=== PATIENT | male | born 1965 | race Caucasian/White ===

== ENCOUNTER 2019-10-12 17:33 | Observation (INO) | payer MEDICAID, SELFPAY ==
[2019-10-13 00:01] VITALS: BP 91/58; PULSE 74; RESP 26; TEMP 36.6; O2SAT 92
[2019-10-13 05:39] VITALS: BP 103/72; PULSE 71; RESP 20; TEMP 36.5; O2SAT 99
[2019-10-13] MEDS: sodium chloride 0.9 % (flush) syringe 10 mL 2 ML IV (05:40)
[2019-10-13 06:15] LABS: Hemoglobin 13.9 g/dL (11.7-16.6); Mean Corpuscular HGB Conc 33.1 g/dL (30.0-36.0); Mean Corpuscular Volume 96.6 fL (80-94); Mean Platelet Volume 9.8 fL (7.4-10.4); Platelet Count 302 10^3/cmm (130-400); Red Blood Count 4.35 10^6/uL (4.1-5.3); Red Cell Distribution Width 12.9 % (12.1-15.1); White Blood Count 6.7 10^3/uL (4.0-10.0)
[2019-10-13 06:31] LABS: Alanine Aminotransferase 33 U/L (0-41); Albumin Level 5.5 g/dL (3.5-5.2); Alkaline Phosphatase 115 IU/L (40-130); Anion Gap 15.2 (5-19); Aspartate Amino Transferase 27 U/L (0-40); Blood Urea Nitrogen 8 mg/dL (6-20); Calcium 10.2 mg/Dl (8.6-10.0); Carbon Dioxide 27 mmol/L (22-29); Chloride 92 mmol/L (98-107); Globulin 2.2 g/dL (1.3-4.6); Glomerular Filtration Rate 118.4 mL/min (90-130); Glucose 99 mg/dL (74-109); Potassium 4.2 mmol/L (3.5-5.1); Sodium 130 mmol/L (136-145); Total Bilirubin 0.3 mg/dL (0.15-1.2); Total Protein 7.7 g/dL (6.6-8.7)
[2019-10-13 08:00] VITALS: BP 101/70; PULSE 71; RESP 20; TEMP 36.8; O2SAT 97
[2019-10-13 08:37] LABS: Absolute Eosinophils 0.1 10^3/cmm (0.0-0.7); Absolute Segmented Neutrophil 3.2 10/cmm (1.6-7.1); Band Neutrophils Absolute 0.4 10^3/cmm (0.0-1.2); Eosinophils 2 %; Lymphocytes 38 %; Lymphocytes Absolute 2.6 10^3/cmm (1.2-3.4); Monocytes Absolute 0.3 10^3/cmm (0.1-0.6); Platelet Estimate Normal (Normal); Segmented Neutrophils 48 %; Total Cells Counted 100 (0-100)
[2019-10-13] MEDS: carBAMazepine XR (12 HR) 200 mg Tablet 400 MG PO (09:35)
[2019-10-13] MEDS: levETIRAcetam 500 mg Tablet 1500 MG PO (09:35)
[2019-10-13] MEDS: aspirin 81 mg EC Tablet PO (09:35)
[2019-10-13] MEDS: nicotine 21 mg Patch 1 PATCH TRANSDERMA (09:35)
[2019-10-13 10:50] VITALS: BP 109/79; PULSE 83; RESP 20; TEMP 35.8; O2SAT 95
[2019-10-13 11:34] VITALS: PULSE 75; RESP 18; O2SAT 97
--- NOTE | 2019-10-13 12:40 | P.DS_ITS ---
Discharge Providers Date of Admission: 10/12/19 17:33 Date of Discharge: 10/13/19 Attending Provider at Admission: Silver Hughes Attending Provider at Discharge: Silver Hughes Primary Care Provider: Michael Mackey Diagnoses at Discharge Discharge Diagnosis (1) Seizure disorder: Status: Acute (2) Smoking addiction: Status: Acute (3) Vitamin D deficiency: Status: Acute Reason for Visit Reason for Visit: Reason For Visit: Generalized Weakness Hospital Course Hospital Course: 54-year-old gentleman with history of seizure disorder, possible anxiety disorder which he reports as nerves , was placed in observation after 2 episodes of seizure on 10/12, 1 around noon, and other in the ER. Episodes resolve spontaneously. He denies any particular trigger. He denies missing his medications. No obvious metabolic or infectious cause was identified. His carbamazepine level was found therapeutic. Keppra level is pending. He was continued on home dose of carbamazepine 400 mg twice daily. He was loaded with 1000 mg of Keppra IV in ER, and continued on 1500 mg twice daily thereon. He did well overnight, without recurrence of seizure. He is feeling ready to return home. For now he will continue on 1500 mg twice daily Keppra, and is referred for follow-up with neurology in office for any additional dose adjustments. He was counseled on smoking cessation, however, does not feel ready to quit at this time. Due to mild hypercalcemia, calcium 10.5, with normal PTH level vitamin D was checked, and is low. Perhaps is the cause of his mildly elevated calcium. For now we will order some replacement for him. Please follow-up calcium levels as outpatient. Physical Exam Const: COMMON NORMALS: no apparent distress and oriented x3 HENMT: COMMON NORMALS: oropharynx normal Neck/C-Spine: COMMON NORMALS: no JVD Resp: COMMON NORMALS: normal respiratory effort and clear to auscultation bilaterally AUSCULTATION: clear to auscultation bilaterally Cardio: COMMON NORMALS: no JVD, regular rhythm, S1 normal heart sound, S2 normal heart sound and no murmurs RHYTHM: regular rhythm HEART SOUNDS: S1 normal and S2 normal GI: COMMON NORMALS: normal to inspection, nondistended, normoactive bowel sounds, soft to palpation and non-tender PALPATION: Yes soft Extremity: COMMON NORMALS: no joint enlargement and no pedal edema Neuro: COMMON NORMALS: oriented x3, moves all extremities and no sensory deficits noted Skin: COMMON NORMALS: no rashes or lesions noted GENERAL SKIN EXAM: no dontrell hes or lesions noted Discharge Data Data Completed and Pending: Labs from last 24 hours 10/13/19 10/13/19 10/12/19 05:45 05:45 19:12 WBC 6.7 RBC 4.35 Hgb 13.9 Hct 42.0 MCV 96.6 H MCH 32.0 MCHC 33.1 RDW 12.9 Plt Count 302 MPV 9.8 Neut % (Auto) Lymph % (Auto) [place] % (Auto) Eos % (Auto) Baso % (Auto) Neut # (Auto) Lymph # (Auto) [place] # (Auto) Eos # (Auto) Baso # (Auto) Nucleated RBC % (a uto) Total Counted 100 Atypical Lymphs % 1.0 Segmented Neutroph ils 48 Band Neutrophils 6.0 Absolute Lymphocyt es 2.6 Lymphocytes (Manua l) 38 Monocytes (Manual) 5.0 Absolute Monocytes 0.3 Eosinophils (Manua l) 2 Absolute Eosinophi ls 0.1 Nucleated RBCs # Platelet Estimate Normal Sodium 130 L Potassium 4.2 Chloride 92 L Carbon Dioxide 27 Anion Gap 15.2 BUN 8 Creatinine 0.7 GFR Calculation 118.4 Glucose 99 Random Glucose Calcium 10.2 H Ionized Calcium 1.2 Total Bilirubin 0.3 AST 27 ALT 33 Alkaline Phosphata se 115 Creatine Kinase Total Protein 7.7 Albumin 5.5 H Globulin 2.2 PTH Intact Urine Opiates Scre en Ur Barbiturates Sc reen Carbamazepine Ur Phencyclidine S crn Ur Amphetamines Sc reen U Benzodiazepines Scrn Urine Cocaine Scre en U Marijuana (THC) Screen Ethyl Alcohol 10/12/19 10/12/19 10/12/19 19:12 15:32 15:10 WBC RBC Hgb Hct MCV MCH MCHC RDW Plt Count MPV Neut % (Auto) Lymph % (Auto) Blackford % (Auto) Eos % (Auto) Baso % (Auto) Neut # (Auto) Lymph # (Auto) [place] # (Auto) Eos # (Auto) Baso # (Auto) Nucleated RBC % (a uto) Total Counted Atypical Lymphs % Segmented Neutroph ils Band Neutrophils Absolute Lymphocyt es Lymphocytes (Manua l) Monocytes (Manual) Absolute Monocytes Eosinophils (Manua l) Absolute Eosinophi ls Nucleated RBCs # Platelet Estimate Sodium Potassium Chloride Carbon Dioxide Anion Gap BUN Creatinine GFR Calculation Glucose Random Glucose Calcium 10.1 H Ionized Calcium Total Bilirubin AST ALT Alkaline Phosphata se Creatine Kinase Total Protein Albumin Globulin PTH Intact 27.9 Urine Opiates Scre en NEGATIVE Ur Barbiturates Sc reen NEGATIVE Carbamazepine Ur Phencyclidine S crn NEGATIVE Ur Amphetamines Sc reen NEGATIVE U Benzodiazepines Scrn NEGATIVE Urine Cocaine Scre en NEGATIVE U Marijuana (THC) Screen NEGATIVE Ethyl Alcohol < 10 10/12/19 10/12/19 10/12/19 15:10 15:10 15:10 WBC 10.9 H RBC 4.30 Hgb 13.5 Hct 40.1 L MCV 93.3 MCH 31.4 MCHC 33.7 RDW 12.7 Plt Count 307 MPV 9.7 Neut % (Auto) 76.6 Lymph % (Auto) 15.7 Blackford % (Auto) 6.9 Eos % (Auto) 0.2 Baso % (Auto) 0.3 Neut # (Auto) 8.4 H Lymph # (Auto) 1.7 [place]ford # (Auto) 0.8 Eos # (Auto) 0.0 Baso # (Auto) 0.0 Nucleated RBC % (a uto) 0 Total Counted Atypical Lymphs % Segmented Neutroph ils Band Neutrophils Absolute Lymphocyt es Lymphocytes (Manua l) Monocytes (Manual) Absolute Monocytes Eosinophils (Manua l) Absolute Eosinophi ls Nucleated RBCs # 0.0 Platelet Estimate Sodium 134 L Potassium 4.2 Chloride 96 L Carbon Dioxide 23 Anion Gap 19.2 H BUN 13 Creatinine 0.9 GFR Calculation 88.6 L Glucose Random Glucose 108 Calcium 10.4 H Ionized Calcium Total Bilirubin 0.2 AST 26 ALT 33 Alkaline Phosphata se 114 Creatine Kinase 136 Total Protein 8.3 Albumin 4.9 Globulin 3.4 PTH Intact Urine Opiates Scre en Ur Barbiturates Sc reen Carbamazepine 8.6 Ur Phencyclidine S crn Ur Amphetamines Sc reen U Benzodiazepines Scrn Urine Cocaine Scre en U Marijuana (THC) Screen Ethyl Alcohol Vitals: , And he is continued onLast Vital Signs Temp 96.5 F L 10/13/19 10:50 Pulse 75 10/13/19 11:34 Resp 18 10/13/19 11:34 BP 109/79 10/13/19 10:50 Pulse Ox 97 10/13/19 11:34 Discharge Plan Discharge Patient Disposition: Home, Self-Care Condition: Stable Prescriptions: New levetiracetam 500 mg Tablet 1,500 mg PO BID Qty: 180 RF: 0 albuterol sulfate 90 mcg/actuation HFA aerosol inhaler 1 inh INHALATION Q6H PRN (Reason: shortness of breath or wheezing) Qty: 6.7 RF: 0 cholecalciferol (vitamin D3) 4,000 unit capsule 4,000 unit PO DAILY Qty: 30 RF: 0 Continued olanzapine 5 mg Tablet 5 mg PO QPM RF: 0 aspirin 81 mg Tablet,Delayed Release (Dr/Ec) 81 mg PO DAILY RF: 0 lorazepam 0.5 mg Tablet 0.5 mg PO QID PRN (Reason: Anxiety) RF: 0 carbamazepine (mood stabiliz) 200 mg Capsule, Er Multiphase 12 Hr 400 mg PO BID RF: 0 Discontinued levetiracetam 500 mg Tablet 500 mg PO BID RF: 0 Discharge Orders: Discharge Order (Routine); Ordered 10/13/19 Ordered By: Silver Hughes Referrals: aKdy Gilman MD [Physician] - 1 week (PLEASE CALL [facility] TOMORROW TO SET UP A FOLLOW UP APPOINTMENT FOR SEIZURES.) Michael Mackey FNP [Primary Care Provider] - 4-7 days (PLEASE CALL [facility] TOMORROW TO SET UP A FOLLOW UP APPOINTMENT.) Activity Restrictions/Additional Instructions: If experiencing recurrence of seizures, please seek medical attention. Please make an effort to try to stop smoking or at least reduce the amount to smoke. Discharge Attestations Time Spent in Discharge Care*: greater than 30 min Quality Metrics Clinical Quality Measures During this hospital stay, did patient experience: None Coding Level of Care Code Acute Financial Services Professional for Chg Fwd Diagnoses Seizure disorder G40.909 Smoking addiction F17.200 Vitamin D deficiency E55.9
[2019-10-13 12:59] VITALS: PULSE 75; RESP 18; TEMP 35.8; O2SAT 97
--- NOTE | 2019-10-13 13:39 | PC.CHAP ---
Pastoral Care Encounter/Spiritual Assessment Type of Contact [] Declined grant officer visit [] Patient/Family/Request visit [] Outpatient visit [] Follow-up visit [] Physician referral [] Code/Alert [x Routine visit [] Staff referral [] Actively dying [] Patient sleeping [] Family support [] [] Out of room [] Palliative care [] [] Receiving care in room [] Pre-surgical visit [] Trauma [] Long length of stay [] ICU visit [] Other: Relational/Emotional Strength [x] Patient feels connected with others/family/visitors/staff [] Distress [] Loneliness/isolation [] Abandonment Spirituality of Patient [x] Person of Edel [] Attends Jew of their Edel [] Believes in Prayer [] Reads Bible or Bahai materials [] There are Spiritual issues to be addressed Outer Diameter Grinder Interventions [x] Prayer [x] Active listening [x] Non-anxious presence [x] Spiritual/emotional support [] Crisis/trauma care [] Spiritual counseling [] Bereavement support [] Provided bereavement packet [] Provided Bible/devotional materials [] Provided toy/stuffed animal, coloring book to patient or family member [x] Completed spiritual assessment [] Provided Communion [] Anointing/Stacy [] Salvation [] Other: Impact on Illness or Injury [] Angry [] Fearful [] Anxious [] Often cries [] Exhaustion [x] Unable to work [] Unable to attend congregational [] Unable to walk/stand [] Unable to read [] Unable to drive [] Unable to eat/drink [] Unable to sleep [] Unable to be with family [] Other: Summary enjoyed life likes to help others Time spent with patient 10 min
== END 2019-10-13 14:39 | disposition home or self-care (01) ==
LOC: ER 17:58 → MEDSURG 18:21
PROVIDERS: Admitting Provider Internal Medicine; Family Provider Nurse Practitioner Family; PCP Nurse Practitioner Family; Visit Provider Internal Medicine
DX: G40.909 Epilepsy, unspecified, not intractable, without status epilepticus (principal); E55.9 Vitamin D deficiency, unspecified; F17.210 Nicotine dependence, cigarettes, uncomplicated; E87.1 Hypo-osmolality and hyponatremia; D72.829 Elevated white blood cell count, unspecified; R06.2 Wheezing; Z79.82 Long term (current) use of aspirin; Z82.49 Family history of ischemic heart disease and other diseases of the circulatory system
CPT/HCPCS: 36415; 70450; 71045; 80048; 80053; 80156; 80177; 80307; 82306; 82330; 82550; 85025; 96361; 96365; 96375; 99281; 99285; G0378; J1953; J2060

== ENCOUNTER 2019-10-19 21:36 | Emergency (ER) | payer MEDICAID, SELFPAY ==
[2019-10-19 21:36] VITALS: BP 147/79; PULSE 111; RESP 18; TEMP 36.9; O2SAT 98; BMI 23.0
--- NOTE | 2019-10-19 21:47 | ED_ITS ---
Entered by Selena Melgar, acting as scribe for Oct 19, 2019 21:36 HPI - Seizure General: Chief Complaint: Seizure Stated Complaint: SEIZURES Time Seen by Provider: 10/19/19 21:46 Source: patient and EMS Mode of arrival: EMS Limitations: no limitations History of Present Illness: HPI Narrative: 54 yo male presents with multiple seizures. per EMS the pt had a seizure at home and called family, then when his sister came he had another seizure. per ems the pt had three seizures today. pt has a hx of seizures and he sees Dr. Gilman and she has him on Kepra medications. pt was unable to take his seizure medications today. pt denies any other symptoms at this time. MD complaint: possible seizure Onset (ago): day(s) (today) Witnessed: Yes - by EMS Trauma: No Seizure History: Yes Place: Home Possible Precipitating Event: none Associated symptoms: Reports no associated symptoms; Deny chest pain, chills or fever(s) Treatments prior to arrival: other (Kepra) Review of Systems General: Reports: 10 or more systems reviewed and unremarkable except in HPI and below Const: Denies: fever or chills Eyes: Denies: change in vision ENMT: Denies: throat pain or mouth pain Card: Denies: chest pain Resp: Denies: shortness of breath GI: Denies: abdominal pain, nausea, vomiting or diarrhea Musc: Denies: back pain or joint pain Skin/Breast: Denies: rash Neuro: Denies: headache or behavioral changes Psych: Denies: depression Endo: Denies: excessive urination Richie/Lymph: Denies: easy bruising All/Imm: Denies: hives PFSH ED PFSH: Statuses (acute, chronic, etc) shown below reflect problem list status as previously entered and may not be historically accurate Medical History Complex partial epilepsy with generalization (Acute) Seizure disorder (Inactive) Family History Other Heart disease Social History Smoking and tobacco status: current every day smoker Alcohol intake: never Physical Exam Const: COMMON NORMALS: no apparent distress and healthy appearing HENMT: COMMON NORMALS: normocephalic and external nose normal HEAD & SCALP: normocephalic NOSE: external nose normal and no nasal discharge (nasal dischage) Eye: COMMON NORMALS: PERRL PUPIL: Yes PERRL Neck/C-Spine: COMMON NORMALS: full ROM and no lymphadenopathy Chest: COMMONS NORMALS: inspection of chest normal Resp: COMMON NORMALS: normal respiratory effort and clear to auscultation bilaterally AUSCULTATION: clear to auscultation bilaterally Cardio: COMMON NORMALS: regular rate and regular rhythm RATE: regular rate RHYTHM: regular rhythm GI: COMMON NORMALS: soft to palpation PALPATION: Yes soft Extremity: COMMON NORMALS: normal to inspection, full ROM and normal capillary refill Psych: COMMON NORMALS: mental status grossly normal and cooperative Skin: COMMON NORMALS: no rashes or lesions noted GENERAL SKIN EXAM: no rashes or lesions noted Course Vital Signs: Vital signs: Vital Signs Temperature 98.5 F 10/19/19 21:36 Pulse Rate 109 H 10/19/19 23:02 Respiratory Rate 17 10/19/19 23:02 Blood Pressure 127/81 10/19/19 23:02 Pulse Oximetry 92 10/19/19 23:02 MDM - Seizure MDM Narrative: Medical decision making narrative: Patient presents here with seizure and has a long history of seizures. Patient is well-appearing here and given Ativan. He did not hit his head and is well-appearing here. Patient is stable for discharge and is to follow-up with his primary care doctor in 3 to 5 days return if worsening. Discharge Plan Discharge Patient Disposition: Home, Self-Care Clinical Impression: Generalized seizure Condition: Stable Prescriptions: No Action olanzapine 5 mg Tablet 5 mg PO QPM RF: 0 aspirin 81 mg Tablet,Delayed Release (Dr/Ec) 81 mg PO DAILY RF: 0 lorazepam 0.5 mg Tablet 0.5 mg PO QID PRN (Reason: Anxiety) RF: 0 carbamazepine (mood stabiliz) 200 mg Capsule, Er Multiphase 12 Hr 400 mg PO BID RF: 0 levetiracetam 500 mg Tablet 1,500 mg PO BID Qty: 180 RF: 0 albuterol sulfate 90 mcg/actuation HFA aerosol inhaler 1 inh INHALATION Q6H PRN (Reason: shortness of breath or wheezing) Qty: 6.7 RF: 0 cholecalciferol (vitamin D3) 4,000 unit capsule 4,000 unit PO DAILY Qty: 30 RF: 0 Discharge Orders: Discharge Order (Routine); Ordered 10/19/19 Ordered By: Anna Avila Referrals: Michael Mackey, FRONT DESK ADMIN [Primary Care Provider] - 4-7 days Discharge Diet: Advance as tolerated Discharge Activity: Resume usual activity Patient Instructions: Recurrent Seizures Adult (ED) Discharge Date/Time: 10/19/19 23:04 Coding Level of Care Code ED Director Home Health for Chg Fwd Exam Problem Focused The documentation recorded by the Ramón nolan Bridget Annette, accurately reflects the service I personally performed and the decisions made by Austin maurice Korby, MD Oct 19, 2019 21:36
--- NOTE | 2019-10-19 21:56 | PC.NURSE ---
pt was given 5mg versed intranasal by [facility]
[2019-10-19] MEDS: LORazepam 2 mg/mL INJ 1 mL IM (22:20)
[2019-10-19 23:02] VITALS: BP 127/81; PULSE 109; RESP 17; O2SAT 92
== END 2019-10-19 23:04 | disposition home or self-care (01) ==
PROVIDERS: Emergency Provider Emergency Medicine; Family Provider Nurse Practitioner Family; PCP Nurse Practitioner Family
DX: G40.409 Other generalized epilepsy and epileptic syndromes, not intractable, without status epilepticus (principal); Z79.82 Long term (current) use of aspirin; F17.210 Nicotine dependence, cigarettes, uncomplicated
CPT/HCPCS: 96372; 99282; J2060

== ENCOUNTER → 2019-10-27 14:57 | Outpatient (BNVA) | payer MEDICAID, SELFPAY | PROVIDERS: Family Provider Nurse Practitioner Family; PCP Nurse Practitioner Family; Visit Provider Specialist | DX: G40.209 Localization-related (focal) (partial) symptomatic epilepsy and epileptic syndromes with complex partial seizures, not intractable, without status epilepticus (principal); F17.210 Nicotine dependence, cigarettes, uncomplicated | CPT/HCPCS: 99214 ==

== ENCOUNTER → 2020-04-19 11:55 | Outpatient (BNVA) | payer MEDICAID, SELFPAY | PROVIDERS: Family Provider Nurse Practitioner Family; PCP Nurse Practitioner Family; Visit Provider Specialist | DX: G40.209 Localization-related (focal) (partial) symptomatic epilepsy and epileptic syndromes with complex partial seizures, not intractable, without status epilepticus (principal); F17.200 Nicotine dependence, unspecified, uncomplicated | CPT/HCPCS: 99213 ==

== ENCOUNTER 2020-08-24 20:56 | Inpatient (IN) | payer MEDICAID, SELFPAY ==
[2020-08-24] VITALS (11 sets, daily range): BP systolic 93–141; BP diastolic 63–111; PULSE 89–107; RESP 13–24; TEMP 36.7–36.8; O2SAT 93–99; BMI 24.0
--- NOTE | 2020-08-24 20:57 | CTR_ITS ---
PROCEDURE INFORMATION: Exam: CT Head Without Contrast Exam date and time: 08/24/2020 10:33 PM Age: 54 years old Clinical indication: Altered mental status/memory loss and other: Combative; Additional info: AMS TECHNIQUE: Imaging protocol: Computed tomography of the head without contrast. Radiation optimization: All CT scans at this facility use at least one of these dose optimization techniques: automated exposure control; mA and/or kV adjustment per patient size (includes targeted exams where dose is matched to clinical indication); or iterative reconstruction. COMPARISON: CT head wo con* [id number] 10/12/2019 4:23 PM RADIATION DOSE METRICS: Total DLP (mGy-cm): 725.29 FINDINGS: Brain: No acute intracranial hemorrhage or mass effect. No definite acute infarct by CT. MRI could be more sensitive/specific for detection, as clinically directed. Cerebral ventricles: Ventricle size is normal for age. Bones/joints: No definite acute skull fracture. Paranasal sinuses: Included paranasal sinuses are essentially clear. Mastoid air cells: No significant acute finding. CT/CT head wo con* [id number] IMPRESSION: 1. No acute intracranial hemorrhage or mass effect. 2. No definite acute infarct by CT, see above. 3. Other findings discussed above. Radiation Dose CTDIVOL = (mGy): DLP = 725.29 (mGy-cm)
--- NOTE | 2020-08-24 20:57 | XR_ITS ---
WS: [id number] Portable AP upright chest, 08/24/2020 Clinical Data: ams Comparison: Portable chest, 10/12/2019. Findings: Bilateral interstitial prominence again is seen. This can represent interstitial edema or d iffuse pneumonia. The heart is normal. The aortic arch is tortuous. No nodules, masses or effusions a re seen. Monitor leads are on the chest wall. XR/XR chest 1V portable [id number] Impression: Diffuse pulmonary interstitial prominence which could represent interstitial ed jaimie, diffuse pneumonia or chronic fibrosis.
--- NOTE | 2020-08-24 21:02 | PC.NURSE ---
ekg done at 2100 and shown to er doc
--- NOTE | 2020-08-24 21:05 | ED_ITS ---
HPI - Altered Mental Status General: Chief Complaint: Altered Mental Status Stated Complaint: combative ams Time Seen by Provider: 08/24/20 20:57 Source: EMS Mode of arrival: EMS Limitations: altered mental status History of Present Illness: HPI narrative: 54-year-old male has history of seizures family called EMS as he was been having hallucinations. EMS states once once they arrived he was talking about Rene Rivera and living in different houses and was quite all over the place. When I told him that he is him to go he became combative. He is not combative the hallway with them. They have given him ketamine in route and history is not fully available from them. He has had no known illness per EMS. Patient still is fighting somewhat and will have to give more sedation we will answer any my questions. Review of Systems General: Reports: ROS unobtainable due to mental status [facility] ED PFSH: Medical History (Updated 08/24/20 @ 22:51 by Anna Avila MD) Complex partial epilepsy with generalization Seizure disorder Family History Other Heart disease Social History Smoking and tobacco status: current every day smoker cigarettes Packs smoked per day: 1 Alcohol intake: never Physical Exam Const: COMMON NORMALS: negative for patient oriented x3 EXAM LIMITATIONS: altered mental status GENERAL APPEARANCE: disheveled HENMT: COMMON NORMALS: normocephalic and atraumatic HEAD & SCALP: no rmocephalic and atraumatic Eye: COMMON NORMALS: Equal, round and reactive pupils present and EOMs intact bilaterally PUPIL: Yes Equal, round and reactive pupils present Neck/C-Spine: COMMON NORMALS: full ROM and supple Chest: COMMONS NORMALS: normal inspection of the chest and normal palpation of entire chest wall Resp: COMMON NORMALS: normal respiratory effort, No retractions, No use of accessory muscles and clear to auscultation bilaterally AUSCULTATION: clear to auscultation bilaterally Cardio: COMMON NORMALS: regular rate, regular rhythm and No murmurs present (Cardio) RATE: regular rate RHYTHM: regular rhythm GI: COMMON NORMALS: Normal to inspection, nondistended, normoactive bowel sounds present, Soft to palpation, non-tender and no masses PALPATION: Yes Soft to palpation Extremity: COMMON NORMALS: normal to inspection Neuro: COMMON NORMALS: negative for patient oriented x3 Psych: COMMON NORMALS: negative for mental status grossly normal Skin: COMMON NORMALS: no rashes or lesions noted and no wounds GENERAL SKIN EXAM: no rashes or lesions noted Course Vital Signs: Vital signs: Vital Signs Temperature 98.3 F 08/24/20 22:45 Pulse Rate 90 08/24/20 22:45 Respiratory Rate 24 H 08/24/20 22:45 Blood Pressure 128/74 08/24/20 22:45 Pulse Oximetry 99 08/24/20 22:45 MDM - Altered Mental Status MDM Narrative: Medical decision making narrative: Tramaine presents here with acute agitation. I did speak to his family and states only got to him he was seen he was given a shoot to the deputies and shoot his family. He states he is act like this before after he comes out of a seizure. He has had no headache or fever. Father states he checked on him yesterday and said he had some diarrhea but had no other acute findings. He has no signs of meningitis. Unable to get any history from patient as he was sedated. CT head here is normal. I spoke to the hospitalist will admit to the ICU. Lab Data: Labs: Lab Results 08/24/20 08/24/20 08/24/20 Range/Units 21:10 21:10 21:10 WBC 13.6 H (4.0-10.0) 10^3/ uL RBC 4.33 (4.1-5.3) 10^6/u L Hgb 13.9 (11.7-16.6) g/dL Hct 41.0 L (42.0-52.0) % MCV 94.7 H (80-94) fL MCH 32.1 (28.0-34.0) pg MCHC 33.9 (30.0-36.0) g/dL RDW 12.9 (12.1-15.1) % Plt Count 341 (130-400) 10^3/c mm MPV 10.0 (7.4-10.4) fL Neut % (Auto) 78.9 % Lymph % (Auto) 9.9 % Montague % (Auto) 10.7 % Eos % (Auto) 0.0 % Baso % (Auto) 0.1 % Neut # (Auto) 10.69 H (1.8-7.7) 10^3/u L Lymph # (Auto) 1.3 (0.8-4.8) 10^3/u L Montague # (Auto) 1.5 H (0.2-0.9) 10^3/u L Eos # (Auto) 0.0 (0.0-0.8) 10^3/u L Baso # (Auto) 0.0 (0.0-0.1) 10^3/u L Nucleated RBC % (a uto) 0 % Nucleated RBCs # 0.0 /100WBC PT 14.20 (12.1-14.9) SECO NDS INR 1.06 (0.8-1.2) Sodium 132 L (136-145) mmol/L Potassium 5.0 (3.5-5.1) mmol/L Chloride 90 L (98-107) mmol/L Carbon Dioxide 28 (22-29) mmol/L Anion Gap 19.0 (5-19) BUN 50 H (6-20) mg/dL Creatinine 1.5 H (0.7-1.2) mg/dL GFR Calculation 49.1 L (90-130) mL/min Glucose 105 (65-115) mg/dL Calculated Osmolal ity 288 (285-295) mOsm/k g Lactate (0.5-2.2) mmol/L Calcium 9.9 (8.5-10.5) mg/dL Total Bilirubin 0.6 (0.15-1.2) mg/dL AST 167 H (0-40) U/L ALT 105 H (0-41) U/L Alkaline Phosphata se 96 (40-130) IU/L Total Protein 7.9 (6.6-8.7) g/dL Albumin 4.6 (3.5-5.2) g/dL Globulin 3.3 (1.3-4.6) g/dL TSH 1.29 (0.27-4.20) uIU/ mL Urine Color (Yellow) Urine Appearance (CLEAR) Urine pH (5-7) Ur Specific Gravit y (1.005-1.030) Urine Protein (Negative) Urine Glucose (UA) (Normal) Urine Ketones (Negative) Urine Blood (Negative) Urine Nitrate (Negative) Urine Bilirubin (Negative) Urine Urobilinogen (Negative) mg/dL Ur Leukocyte Tisha ase (Negative) Urine RBC (0-2) /hpf Urine WBC (0-5) /hpf Ur Squamous Epith Cells (0-5) /hpf Amorphous Sediment /hpf Urine Bacteria (NONE) /hpf Salicylates < 0.3 L (3-10) mg/dL Urine Opiates Scre en (Negative) ng/mL Acetaminophen < 5.0 L (10-30) ug/mL Ur Barbiturates Sc reen (Negative) ng/mL Ur Phencyclidine S crn (Negative) ng/mL Ur Amphetamines Sc reen (Negative) ng/mL U Benzodiazepines Scrn (Negative) ng/mL Urine Cocaine Scre en (Negative) ng/mL U Marijuana (THC) Screen (Negative) ng/mL Ethyl Alcohol < 10 (0-10) mg/dL 08/24/20 08/24/20 08/24/20 Range/Units 21:10 21:10 21:10 WBC (4.0-10.0) 10^3/ uL RBC (4.1-5.3) 10^6/u L Hgb (11.7-16.6) g/dL Hct (42.0-52.0) % MCV (80-94) fL MCH (28.0-34.0) pg MCHC (30.0-36.0) g/dL RDW (12.1-15.1) % Plt Count (130-400) 10^3/c mm MPV (7.4-10.4) fL Neut % (Auto) % Lymph % (Auto) % Montague % (Auto) % Eos % (Auto) % Baso % (Auto) % Neut # (Auto) (1.8-7.7) 10^3/u L Lymph # (Auto) (0.8-4.8) 10^3/u L Montague # (Auto) (0.2-0.9) 10^3/u L Eos # (Auto) (0.0-0.8) 10^3/u L Baso # (Auto) (0.0-0.1) 10^3/u L Nucleated RBC % (a uto) % Nucleated RBCs # /100WBC PT (12.1-14.9) SECO NDS INR (0.8-1.2) Sodium (136-145) mmol/L Potassium (3.5-5.1) mmol/L Chloride (98-107) mmol/L Carbon Dioxide (22-29) mmol/L Anion Gap (5-19) BUN (6-20) mg/dL Creatinine (0.7-1.2) mg/dL GFR Calculation (90-130) mL/min Glucose (65-115) mg/dL Calculated Osmolal ity (285-295) mOsm/k g Lactate 1.8 (0.5-2.2) mmol/L Calcium (8.5-10.5) mg/dL Total Bilirubin (0.15-1.2) mg/dL AST (0-40) U/L ALT (0-41) U/L Alkaline Phosphata se (40-130) IU/L Total Protein (6.6-8.7) g/dL Albumin (3.5-5.2) g/dL Globulin (1.3-4.6) g/dL TSH (0.27-4.20) uIU/ mL Urine Color Yellow (Yellow) Urine Appearance Sl cloudy A (CLEAR) Urine pH 5.0 (5-7) Ur Specific Gravit y 1.020 (1.005-1.030) Urine Protein 1+ H (Negative) Urine Glucose (UA) 1+ (Normal) Urine Ketones 1+ H (Negative) Urine Blood 3+ H (Negative) Urine Nitrate Negative (Negative) Urine Bilirubin Neg (Negative) Urine Urobilinogen Norm (Negative) mg/dL Ur Leukocyte Tisha ase Negative (Negative) Urine RBC 0-4 H (0-2) /hpf Urine WBC 0-4 H (0-5) /hpf Ur Squamous Epith Cells None (0-5) /hpf Amorphous Sediment Amorphous urates /hpf Urine Bacteria 2+ H (NONE) /hpf Salicylates (3-10) mg/dL Urine Opiates Scre en Negative (Negative) ng/mL Acetaminophen (10-30) ug/mL Ur Barbiturates Sc reen Negative (Negative) ng/mL Ur Phencyclidine S crn Negative (Negative) ng/mL Ur Amphetamines Sc reen Negative (Negative) ng/mL U Benzodiazepines Scrn Negative (Negative) ng/mL Urine Cocaine Scre en Negative (Negative) ng/mL U Marijuana (THC) Screen Negative (Negative) ng/mL Ethyl Alcohol (0-10) mg/dL EKG Data^: EKG 1: Attestation: I personally reviewed and interpreted this EKG as follows: EKG interpretation date: 08/24/20 EKG interpretation time: 21:00 Interpretation: nsr hr [address] or t wave abnormalities qrs 93 qtc 380 Discharge Plan Discharge Patient Disposition: Admitted As Inpatient Clinical Impression: Altered mental status, Acute psychosis Condition: Stable Coding Level of Care Code ED File Keeper for Chg Fwd Exam Comprehensive
[2020-08-24 21:23] LABS: Basophils % 0.1 %; Hemoglobin 13.9 g/dL (11.7-16.6); Lymphocytes # 1.3 10^3/uL (0.8-4.8); Lymphocytes % 9.9 %; Mean Corpuscular HGB Conc 33.9 g/dL (30.0-36.0); Mean Corpuscular Hemoglobin 32.1 pg (28.0-34.0); Mean Corpuscular Volume 94.7 fL (80-94); Monocytes # 1.5 10^3/uL (0.2-0.9); Monocytes % 10.7 %; Neutrophils # 10.69 10^3/uL (1.8-7.7); Neutrophils % 78.9 %; Nucleated Red Blood Cells % 0 %; Platelet Count 341 10^3/cmm (130-400); Red Blood Count 4.33 10^6/uL (4.1-5.3); Red Cell Distribution Width 12.9 % (12.1-15.1); White Blood Count 13.6 10^3/uL (4.0-10.0)
--- NOTE | 2020-08-24 21:30 | PC.NURSE ---
In restraint bed
[2020-08-24] MEDS: sodium chloride 0.9% 1,000 ML 999 ML IV (21:37)
[2020-08-24] MEDS: LORazepam 2 mg/mL INJ 1 mL 4 MG IVP (21:38)
[2020-08-24 21:48] LABS: INR 1.06 (0.8-1.2)
[2020-08-24 21:49] LABS: Amphetamines Screen Urine Negative (Negative); Barbiturates Screen Urine Negative (Negative); Benzodiazepines Screen Urine Negative (Negative); Cocaine Screen Urine Negative (Negative); Opiate Screen Urine Negative (Negative); PCP Screen Urine Negative (Negative); THC Screen Urine Negative (Negative)
[2020-08-24 21:58] LABS: Blood Urine 3+ (Negative); Glucose Urine UA 1+ (Normal); Ketones Urine 1+ (Negative); Protein Urine 1+ (Negative); Urine Color Yellow (Yellow)
[2020-08-24 21:59] LABS: Add Urine Microscopic? YES; Bacteria Urine 2+ /hpf; Bilirubin Urine Neg (Negative); Lactate (Lactic Acid level) 1.8 mmol/L (0.5-2.2); Leukocyte Esterase Urine Negative (Negative); Nitrate Urine Negative (Negative); RBC Urine 0-4 /hpf (0-2); Urobilinogen Urine Norm (Negative); WBC Urine 0-4 /hpf (0-5)
[2020-08-24 22:00] LABS: Add Urine Culture? Yes; Amorphous Sediment Urine AMORPHOUS URATES /hpf
[2020-08-24 22:09] LABS: Alanine Aminotransferase 105 U/L (0-41); Albumin Level 4.6 g/dL (3.5-5.2); Alkaline Phosphatase 96 IU/L (40-130); Aspartate Amino Transferase 167 U/L (0-40); Blood Urea Nitrogen 50 mg/dL (6-20); Calcium 9.9 mg/dL (8.5-10.5); Carbon Dioxide 28 mmol/L (22-29); Chloride 90 mmol/L (98-107); Globulin 3.3 g/dL (1.3-4.6); Glomerular Filtration Rate 49.1 mL/min (90-130); Glucose 105 mg/dL (65-115); Osmolality Calculated 288 mOsm/kg (285-295); Sodium 132 mmol/L (136-145); Thyroid Stimulating Hormone 1.29 uIU/mL (0.27-4.20); Total Bilirubin 0.6 mg/dL (0.15-1.2); Total Protein 7.9 g/dL (6.6-8.7)
--- NOTE | 2020-08-24 22:15 | PC.NURSE ---
Patient feet taken out of restraints.
[2020-08-24 22:33] LABS: Acetaminophen < 5.0 ug/mL (10-30); Alcohol Level < 10 mg/dL (0-10); Salicylate < 0.3 mg/dL (3-10)
--- NOTE | 2020-08-24 22:47 | PC.NURSE ---
Patient taken out of all restraints at 2245. Patient sleeping.
--- NOTE | 2020-08-24 23:18 | PM.HP ---
Providers/Chief Complaint Admitting Physician: Vonda Whyte MD Primary Care Provider: NANCY Cramer Chief Complaint: combative ams History of Present Illness Tramaine Remy is a 54 year old male who was sent by his brother because of psychotic behavior. I called brother to get the report, he is stating that he went to visit him today, he noticed that Tramaine's conversation was tangential, he was talking about Trump and how he wants to get out of this world and come back, he thought someone ate his pills. Brother called EMS, EMS gave 200 mg ketamine because of agitation and combative behavior. When he arrived in the ER he was given 300 mg of ketamine along with Ativan. By the time I saw him he was very drowsy and sedated. Diagnostics in the ER revealed soft blood pressure, normal hemodynamics, UA reviewed, drug screen reviewed, CARLOS, CT head unremarkable. Review of Systems General: Reports: ROS unobtainable due to medical condition Medications/Allergies Home Medications Medication Instructions Recorded Confirmed Last Taken Type olanzapine 5 mg PO QPM 10/12/19 04/19/20 Unknown History cholecalciferol (vitamin D3) 4,000 unit PO DAILY #30 cap 10/13/19 04/19/20 Unknown Rx acetaminophen 325 mg capsule 650 mg PO Q6H 10/27/19 04/19/20 Unknown History lorazepam 0.5 mg tablet 0.5 mg PO QID PRN #90 tab 04/13/20 04/19/20 Unknown Rx albuterol sulfate 90 mcg/actuation 1 inh INHALATION Q6H PRN #6.7 gm 05/29/20 Unknown Rx aerosol inhaler levetiracetam 500 mg tablet 2,000 mg PO BID #240 tab 05/30/20 Unknown Rx carbamazepine 400 mg 400 mg PO BID #60 tab 05/31/20 Unknown Rx tablet,extended release,12 hr Allergies Allergy/AdvReac Type Severity Reaction Status Date / Time bismuth subsalicylate Allergy unknown Verified 08/24/20 21:04 [From Kaopectate (bismuth subsalicy)] multivitamin [From Centrum] Allergy unknown Verified 08/24/20 21:04 cholesterol medication Allergy unknown Uncoded 08/24/20 21:04 PFSH Acute PFSH: Medical History Chronic pain syndrome Complex partial epilepsy with generalization SYDNEY (generalized anxiety disorder) Mixed hyperlipidemia Seizure disorder Surgical History Status post lung surgery bullectomy Family History Other Heart disease Social History Smoking and tobacco status: current every day smoker cigarettes Packs smoked per day: 1 Alcohol intake: never Lives independently: Yes Housing: House Vitals/I&O/Wt Last Vital Signs Temp 98.3 F 08/24/20 22:45 Pulse 89 08/24/20 23:15 Resp 15 08/24/20 23:15 BP 128/69 08/24/20 23:15 Pulse Ox 96 08/24/20 23:15 08/24/20 08/24/20 08/25/20 14:59 22:59 06:59 Intake Total 1000 / 1000 Balance 1000 / 1000 Weight last 48 hrs Weight 102.058 kg Physical Exam Narrative: EXAM NARRATIVE: Middle-age male, Unkempt appearance Sedated with ketamine and Ativan Saturating well on room air Soft blood pressure No tachypnea or tachycardia Poor hygiene Multiple lacerations all over his extremities S1, S2 sinus rhythm Abdomen nondistended Neuro exam limited, however pupils are reactive to light bilaterally, he has symmetrical pupil Lower extremity multiple lacerations no active edema gangrene or ulcer Data : 08/24/20 21:10 08/24/20 21:10 A&P Assessment and plan (1) Altered mental status: Status: Acute (2) Acute psychosis: Status: Acute (3) CARLOS (acute kidney injury): Status: Acute Additional A&P Information Acute psychotic behavior Patient currently sedated after getting 500 mg of ketamine and Ativan Currently hemodynamically stable, saturating well on room air Closely monitor in the ICU for now CT head unremarkable Drug screen reviewed, We are not sure whether he had any suicidal attempt or ideation, but there is also not sure, neuropsychiatric consult once he is awake, currently not stable for NPU I would continue CIWA protocol, continue thiamine, alcohol level undetectable Acute kidney injury Baseline creatinine seems to be normal Clinically he looks dehydrated I resuscitated with fluids for now, Full code N.p.o. until mentation improves DVT prophylaxis Heparin Attestations Medical Necessity Statement*: Anticipating stay in the hospital cross more than 2 midnights currently need ICU monitoring because of previous history of epilepsy, psychotic behavior currently sedated Time Spent in Patient Care: (>than 50% of time spent in counselling and/or direct pt care on unit). 50mins Coding Level of Care Code Acute Underwriter Mortgage Loan for Ygg Fwd Diagnoses Altered mental status R41.82 Acute psychosis F23 CARLOS (acute kidney injury) N17.9
--- NOTE | 2020-08-24 23:55 | PC.NURSE ---
See scanned in paperwork for physical restraint 15 minute patient assessment documentation.
--- NOTE | 2020-08-24 23:57 | PC.NURSE ---
1:1 sitter at bedside
[2020-08-25] VITALS (35 sets, daily range): BP systolic 91–152; BP diastolic 46–106; PULSE 69–99; RESP 12–28; TEMP 36.3–37; O2SAT 93–100
--- NOTE | 2020-08-25 00:35 | PC.NURSE ---
Tried to call report at [phone], ICU crude unit operator stated the Patient's nurse was in a room and could not take report at this time.
--- NOTE | 2020-08-25 00:42 | PC.NURSE ---
Called report to ROBERTA Decker in ICU
[2020-08-25] MEDS: dextrose 5%-sod chloride 0.45% 1,000 ML 30 ML IV (01:20)
[2020-08-25] MEDS: heparin 5,000 unit/mL INJ 1 mL 5000 UNIT SUBCUT ×2 (01:49→14:20)
--- NOTE | 2020-08-25 01:52 | ECG_ITS ---
[facility] Test Date: 2020-08-24 Pat Name: Tramaine Remy Department: Room: ICU04 Gender: Male Digital Circuit Designer: : [id number] Requested By: Anna Avila Order Number: [id number] Jose MD: Dhruv Bryant M.D. Measurements Intervals Oolitic Rate: 98 P: 65 WI: 160 QRS: 62 QRSD: 93 T: 78 QT: 324 QTc: 415 Interpretive Statements SINUS RHYTHM POSSIBLE INFERIOR MYOCARDIAL INFARCTION , OF INDETERMINATE AGE [30 ms Q WAVE IN II/aVF] Compared to ECG 06/29/2019 16:39:08 Myocardial infarct finding now present ST (T wave) deviation no longer present Electronically Signed On 08-25-2020 20:03:10 [employer]UCK [employer]AU[employer] by Dhruv Bryant M.D. [id number]
[2020-08-25 02:48] LABS: SARS Covid-2 Antigen Negative (Negative)
[2020-08-25 05:07] LABS: ABG PCO2 44.4 mmHg (35-45); ABG PH Result 7.41 (7.35-7.45); Arterial Blood Gas Hematocrit 41.4 % (42-52); Base Excess ABG 3.1 mmol/L (-2.0-2.0); Blood Gas Allen Test Pos; Blood Gas Sample Site Radial, right; Blood Gas Sample Type Arterial; HCO3 ABG 28.3 mmol/L (22-26); Oxygen Device ROOM AIR; PO2 ABG 58.6 mmHg (80.0-100.0)
[2020-08-25 05:43] LABS: Albumin Level 4.3 g/dL (3.5-5.2); Blood Urea Nitrogen 42 mg/dL (6-20); Calcium 9.5 mg/dL (8.5-10.5); Carbon Dioxide 25 mmol/L (22-29); Chloride 93 mmol/L (98-107); Globulin 3.8 g/dL (1.3-4.6); Glomerular Filtration Rate 88.6 mL/min (90-130); Glucose 89 mg/dL (65-115); Osmolality Calculated 284 mOsm/kg (285-295); Sodium 132 mmol/L (136-145); Total Bilirubin 0.7 mg/dL (0.15-1.2); Total Protein 8.1 g/dL (6.6-8.7)
[2020-08-25 06:04] LABS: Alanine Aminotransferase 107 U/L (0-41); Alkaline Phosphatase 94 IU/L (40-130); Anion Gap 19.7 (5-19); Aspartate Amino Transferase 163 U/L (0-40); Potassium 5.7 mmol/L (3.5-5.1)
[2020-08-25 08:04] LABS: Basophils % 0.1 %; Eosinophils % 0.1 %; Hematocrit 37.9 % (42.0-52.0); Hemoglobin 12.7 g/dL (11.7-16.6); Lymphocytes # 2.2 10^3/uL (0.8-4.8); Lymphocytes % 22.1 %; Mean Corpuscular HGB Conc 33.5 g/dL (30.0-36.0); Mean Corpuscular Hemoglobin 31.7 pg (28.0-34.0); Mean Corpuscular Volume 94.5 fL (80-94); Monocytes # 1.1 10^3/uL (0.2-0.9); Monocytes % 10.8 %; Neutrophils # 6.47 10^3/uL (1.8-7.7); Neutrophils % 66.6 %; Nucleated Red Blood Cells % 0 %; Platelet Count 294 10^3/cmm (130-400); Red Blood Count 4.01 10^6/uL (4.1-5.3); Red Cell Distribution Width 13.1 % (12.1-15.1); White Blood Count 9.7 10^3/uL (4.0-10.0)
--- NOTE | 2020-08-25 08:23 | PC.RESP ---
SMOKING CESSATION INFORMATION SENT TO PATIENT.
[2020-08-25 08:41] LABS: Cortisol Random 22.84 ug/mL (2.47-19.5)
[2020-08-25] MEDS: sodium polystyrene sulfonate 15 gm/60 mL Btl PO (08:59)
[2020-08-25] MEDS: LORazepam 2 mg/mL INJ 1 mL IVP ×3 (09:20→18:05)
--- NOTE | 2020-08-25 13:37 | PM.PN ---
Subjective Subjective: Interval history: And physical reviewed in detail. I visited Tramaine several times today. He is now awake, and responding but somewhat slow. Nursing relates he seems to pocket food in his mouth. She is worried he might aspirate. Medications: Reviewed: Yes Vitals/I&O/Wt Last Vital Signs Temp 97.8 F 08/25/20 11:00 Pulse 74 08/25/20 12:00 Resp 14 08/25/20 12:00 BP 101/52 08/25/20 12:00 Pulse Ox 97 08/25/20 12:00 08/24/20 08/25/20 08/25/20 22:59 06:59 14:59 Intake Total 1000 / 1000 330 / 330 Output Total 700 / 700 Balance 1000 / 1000 -370 / -370 Weight last 48 hrs Weight 95.254 kg Weight 102.058 kg Physical Exam Narrative: EXAM NARRATIVE: Exam is a white male to making good eye contact who seems to grab things in the air as if he is hallucinating. Cardiovascular regular rate and rhythm without murmur Lungs clear Abdomen is soft with positive bowel sounds Extremities no cyanosis clubbing or edema Data : 08/25/20 07:22 08/25/20 04:12 A&P Assessment and plan (1) Altered mental status: Etiology unclear. He is on multiple medications at home, 1 of which is carbamazepine. There is no level of this medication on admission. Tegretol level. CT head negative Cannot rule out overdose Status: Acute (2) Acute psychosis: He may have an underlying mental health disorder. There are notes from neurology in the past that patient has had hallucinations he describes during office visits. CT head negative Psychiatry consultation Check ammonia level Status: Acute (3) CARLOS (acute kidney injury): Resolving Status: Acute Additional A&P Information Hyperkalemia. Continue fluids. Give Kayexalate. Recheck BMP this afternoon and in the morning. Check TSH and cortisol level Possible aspiration pneumonitis. He is requiring 2 L of oxygen. Change Augmentin to Zosyn secondary to concern of poor oral intake Concern of alcoholism. Thiamine. [facility] protocol Transaminitis. Check hepatitis panel Full code N.p.o. DVT prophylaxis Heparin Rapid Covid negative Attestations Medical Necessity Statement*: Needs continued hospitalization, for evaluation of hyperkalemia, confusion, psychosis. Coding Level of Care Code Acute Soap Mixer for Chg Fwd Diagnoses Altered mental status R41.82 Acute psychosis F23 CARLOS (acute kidney injury) N17.9
[2020-08-25 14:32] LABS: Anion Gap 11.3 (5-19); Blood Urea Nitrogen 30 mg/dL (6-20); Calcium 9.3 mg/dL (8.5-10.5); Carbon Dioxide 32 mmol/L (22-29); Chloride 97 mmol/L (98-107); Glomerular Filtration Rate 118.4 mL/min (90-130); Glucose 95 mg/dL (65-115); Osmolality Calculated 288 mOsm/kg (285-295); Potassium 4.3 mmol/L (3.5-5.1); Sodium 136 mmol/L (136-145)
[2020-08-25 14:33] LABS: Ammonia 21 umol/L (16-60)
[2020-08-25 14:50] LABS: Hepatitis A Antibody IgM Non-Reactive (Nonreactive); Hepatitis B Core IgM Non-Reactive (Nonreactive); Hepatitis B Surface Antigen Non-Reactive (Nonreactive); Hepatitis C Virus Antibody Non-Reactive (Nonreactive)
[2020-08-25 15:01] LABS: Carbamazepine Tegretol 4.5 ug/mL (4.0-12.0)
[2020-08-25] MEDS: piperacillin-tazobactam 3.375 GM in sodium chloride 0.9% (plus) 50 ML IV ×2 (15:06→23:42)
[2020-08-25] MEDS: dextrose 5%-sod chloride 0.45% 1,000 ML 100 ML IV (18:10)
--- NOTE | 2020-08-25 18:55 | P.CONIM_ITS ---
Providers/Reason for Consult Consulting Physican/Specialty*: Jose Daniel Sosa M.D. psychiatry. Reason for Consult*: Altered mental status, question of medication management and diagnosis Attending Physician: Bharathi Espinoza MD Primary Care Provider: NANCY Cramer Psych Consult HPI History of Present Illness Tramaine Remy is a 54 year old male who presented to the emergency department with the following report: Chief Complaint: Altered Mental Status Stated Complaint: combative ams Time Seen by Provider: 08/24/20 20:57 Source: EMS Mode of arrival: EMS Limitations: altered mental status History of Present Illness: HPI narrative: 54-year-old male has history of seizures family called EMS as he was been having hallucinations. EMS states once once they arrived he was talking about Rene Rivera and living in different houses and was quite all over the place. When I told him that he is him to go he became combative. He is not combative the hallway with them. They have given him ketamine in route and history is not fully available from them. He has had no known illness per EMS. Patient still is fighting somewhat and will have to give more sedation we will answer any my questions. He was admitted to the ICU for definitive treatment of those issues. Today when he was seen he was an essentially nonexistent historian. He was very difficult to arouse. And once awake he pointed in all directions with limited sense about what he was pointing at. He mumbles in a non-intelligible fashion. He never answered any questions directly or had any contributory information. Psychiatric history: Reportedly a long history of mental health issues but unable to obtain. Subsidies history: No reports of significant addiction issues. Otherwise standard information for consult unable to be elicited in his current condition. Meds Current Medications: Current Medications Generic Name Dose Route Start Last Admin Trade Name Freq PRN Reason Stop Dose Admin Carbamazepine 400 mg 08/25/20 22:18 08/25/20 23:42 Carbamazepine 20 0 Mg Tablet PO 400 mg BID LUCA Administration Folic Acid 1 mg 08/25/20 09:00 08/25/20 09:09 Folic Acid 1 Mg Tablet PO Not Given DAILY LUCA Heparin Sodium (Be ef Lung) 5,000 unit 08/25/20 14:00 08/26/20 05:04 Heparin 5,000 Un it/Ml Inj 1 Ml SUBCUT 5,000 unit Q12H LUCA Administration Dextrose/Sodium Ch loride 1,000 mls @ 100 m ls/hr 08/25/20 00:47 08/25/20 18:10 Dextrose 5%-Sod Chloride 0.45% IV 100 mls/hr .Q10H LUCA Administration Piperacillin Sod/T azobactam 50 mls @ 12.5 mls /hr 08/25/20 15:00 08/25/20 23:42 Sod 3.375 gm/ So dium Chloride IV 12.5 mls/hr Q8H LUCA Administration Protocol Levetiracetam 1,50 0 mg/ Sodium 115 mls @ 440 mls /hr 08/26/20 02:15 08/26/20 05:04 Chloride IV 440 mls/hr Q12H LUCA Administration Lorazepam 2 mg 08/25/20 00:47 08/25/20 18:05 Lorazepam 2 Mg/M l Inj 1 Ml IVP 2 mg PRN PRN Administration WITHDRAWAL Protocol Multivitamins Ther apeutic 1 tab 08/25/20 09:00 08/25/20 09:09 Multivitamin The rapeutic Tablet PO Not Given DAILY LUCA Olanzapine 5 mg 08/25/20 22:18 08/25/20 23:42 Olanzapine 5 Mg Tablet PO 5 mg QPM LUCA Administration Thiamine Mononitra te 100 mg 08/25/20 09:00 08/25/20 09:10 Thiamine 100 Mg Tablet PO Not Given DAILY LUCA PFSH NPU PFSH: Medical History Chronic pain syndrome Complex partial epilepsy with generalization SYDNEY (generalized anxiety disorder) Mixed hyperlipidemia Seizure disorder Surgical History Status post lung surgery bullectomy Family History Other Heart disease Social History Smoking and tobacco status: current every day smoker cigarettes Packs smoked per day: 1 Alcohol intake: never Lives independently: Yes Housing: House Mental Status Exam MSE Comments: This is a well-nourished, well-developed white male in a hospital gown with limited grooming, mostly disheveled with no directed eye contact. No abnormal movements except for psychomotor retardation. Uncoope rative with exam in mild distress. Speech was nonexistent mostly and when present was garbled. Mood not described, affect obtunded. Thought process unable to obtain. Thought content: Patient did not respond any questions about lethality but was not aggressive towards himself or others, no response to delusional frameworks, and did not appear to be responding to internal stimuli. There were times where he appeared to the noting things in the room or possibly not there. Attention and concentration was impaired and memory was unable to be obtained but no more formally tested. He was not alert or oriented. Insight and judgment are impaired, and impulse control is impaired. Vitals/I&O/Wt Last Vital Signs Temp 98.0 F 08/25/20 20:00 Pulse 84 08/25/20 20:00 Resp 15 08/25/20 20:00 BP 112/77 08/25/20 20:00 Pulse Ox 95 08/25/20 20:00 08/25/20 14:59 Intake Total 330 / 330 Output Total 700 / 700 Balance -370 / -370 Weight last 48 hrs Weight 95.254 kg Weight 102.058 kg A&P Assessment and plan (1) Altered mental status: Status: Acute (2) Acute psychosis: Status: Acute (3) Smoking addiction: Status: Acute (4) Vitamin D deficiency: Status: Acute Additional A&P Information Tramaine presents today mostly elevated with a recent history of possible seizures, being off his medication and unclear about whether is psychiatric medications are effective or whether he needs ongoing psychiatric treatment. 1. Continue current medication. 2. Will attempt to get collateral information on a psychiatric history. 3. Patient to obtunded to get a sense of whether there is a significant psychiatric decompensation present. 4. We'll continue to follow. Attestations NPU Medical Necessity Statement*: N/A. Please refer to primary team note for medical necessity. At this point unable to assess whether inpatient psychiatric services or medication changes are needed. Coding Level of Care Code Acute Cabinetmaker Apprentice for Ygg Fwd Diagnoses Altered mental status R41.82 Acute psychosis F23 Smoking addiction F17.200 Vitamin D deficiency E55.9
--- NOTE | 2020-08-25 21:36 | PC.NURSE ---
Report called to [facility]
--- NOTE | 2020-08-25 21:36 | PC.NURSE ---
AO to self, Pulls at VS leads, yells at times stating I want out , calms and reorients easily, denies pain, regular unlabored RR RA, supine 45 degrees One on One Sitter at bedside
--- NOTE | 2020-08-25 22:00 | PC.NURSE ---
Transferred to Med Surg via bed
[2020-08-25] MEDS: carBAMazepine 200 mg Tablet 400 MG PO (23:42)
[2020-08-25] MEDS: OLANZapine 5 mg TABLET PO (23:42)
[2020-08-26] VITALS: BP 125/83; PULSE 91; RESP 20; TEMP 36.4; O2SAT 95
[2020-08-26 04:00] VITALS: BP 103/61; PULSE 70; RESP 16; O2SAT 91
[2020-08-26] MEDS: heparin 5,000 unit/mL INJ 1 mL 5000 UNIT SUBCUT ×2 (05:04→13:48)
[2020-08-26 06:02] LABS: Basophils % 0.3 %; Eosinophils # 0.1 10^3/uL (0.0-0.8); Eosinophils % 0.9 %; Hematocrit 37.8 % (42.0-52.0); Hemoglobin 12.3 g/dL (11.7-16.6); Lymphocytes # 2.6 10^3/uL (0.8-4.8); Lymphocytes % 44.4 %; Mean Corpuscular HGB Conc 32.5 g/dL (30.0-36.0); Mean Corpuscular Hemoglobin 31.7 pg (28.0-34.0); Mean Corpuscular Volume 97.4 fL (80-94); Mean Platelet Volume 11.1 fL (7.4-10.4); Monocytes # 0.8 10^3/uL (0.2-0.9); Monocytes % 13.8 %; Neutrophils # 2.38 10^3/uL (1.8-7.7); Neutrophils % 40.4 %; Nucleated Red Blood Cells % 0 %; Platelet Count 253 10^3/cmm (130-400); Red Blood Count 3.88 10^6/uL (4.1-5.3); Red Cell Distribution Width 13.2 % (12.1-15.1); White Blood Count 5.9 10^3/uL (4.0-10.0)
[2020-08-26] MEDS: piperacillin-tazobactam 3.375 GM in sodium chloride 0.9% (plus) 50 ML IV ×3 (06:29→23:08)
[2020-08-26 06:55] LABS: Alanine Aminotransferase 105 U/L (0-41); Albumin Level 3.9 g/dL (3.5-5.2); Alkaline Phosphatase 84 IU/L (40-130); Anion Gap 13.1 (5-19); Aspartate Amino Transferase 153 U/L (0-40); Blood Urea Nitrogen 17 mg/dL (6-20); Carbon Dioxide 29 mmol/L (22-29); Chloride 98 mmol/L (98-107); Globulin 2.8 g/dL (1.3-4.6); Glomerular Filtration Rate 141.5 mL/min (90-130); Glucose 99 mg/dL (65-115); Osmolality Calculated 284 mOsm/kg (285-295); Potassium 4.1 mmol/L (3.5-5.1); Sodium 136 mmol/L (136-145); Total Bilirubin 0.7 mg/dL (0.15-1.2); Total Protein 6.7 g/dL (6.6-8.7)
[2020-08-26 08:00] VITALS: BP 96/66; PULSE 89; RESP 18; TEMP 36.4; O2SAT 93
[2020-08-26] MEDS: multivitamin therapeutic Tablet 1 TAB PO (08:39)
[2020-08-26] MEDS: carBAMazepine 200 mg Tablet 400 MG PO ×2 (08:39→16:48)
[2020-08-26] MEDS: folic acid 1 mg Tablet PO (08:40)
[2020-08-26] MEDS: thiamine 100 mg Tablet PO (08:40)
[2020-08-26 12:00] VITALS: BP 80/56; PULSE 88; RESP 20; TEMP 36.4; O2SAT 94
--- NOTE | 2020-08-26 12:15 | PC.CHAP ---
Pastoral Care Encounter/Spiritual Assessment Type of Contact [] Declined hands assembler visit [] Patient/Family/Request visit [] Outpatient visit [] Follow-up visit [] Physician referral [] Code/Alert [] Routine visit [] Staff referral [] Actively dying [] Patient sleeping [] Family support [] [X] Out of room [] Palliative care [] [] Receiving care in room [] Pre-surgical visit [] Trauma [] Long length of stay [] ICU visit [] Other: Relational/Emotional Strength [] Patient feels connected with others/family/visitors/staff [] Distress [] Loneliness/isolation [] Abandonment Spirituality of Patient [] Person of Edel [] Attends Judaism of their Edel [] Believes in Prayer [] Reads Bible or Episcopalian materials [] There are Spiritual issues to be addressed Artificial Limb Fitter Interventions [] Prayer [] Active listening [] Non-anxious presence [] Spiritual/emotional support [] Crisis/trauma care [] Spiritual counseling [] Bereavement support [] Provided bereavement packet [] Provided Bible/devotional materials [] Provided toy/stuffed animal, coloring book to patient or family member [] Provided Communion [] Anointing/[place] [] Salvation [] Completed spiritual assessment [] Other: Impact on Illness or Injury [] Angry [] Fearful [] Anxious [] Often cries [] Exhaustion [] Unable to work [] Unable to attend christianity [] Unable to walk/stand [] Unable to read [] Unable to drive [] Unable to eat/drink [] Unable to sleep [] Unable to be with family [] Patient intubated [] Other: Summary Time spent with patient
--- NOTE | 2020-08-26 12:56 | P.PN_ITS ---
Subjective NPU Subjective: Interval history: Tramaine presents today clearly thinking in a better fashion than he was yesterday. Able to identify medication and his circumstances when he is not in the hospital. He is very clear that he is the person manages his medication and denies that he misses with any regularity or that there is any need to get any assistance. He then retracted and said that his brother does assist him in making sure that he keeps things straight. He reports that he will be fine if his brother was made aware of any of the things we felt he should improve on her work on. Mental Status Exam MSE Comments: This is a well-nourished, well-developed white male in a hospital gown with limited grooming, with improved grooming and eye contact. No abnormal movements except for psychomotor retardation. More cooperative with exam in no acute distress. Speech was more normal rate and volume with mild dysarthria. Mood not described as better, affect brighter. Thought process organized. Thought content: Patient denied suicidal or homicidal ideations, there were no delusions reported are noted, he denied any auditory or visual hallucinations. He recalled us meeting yesterday and tried to identify why he was pointing to a different places in the room. Attention and concentration was intact and memory was more reliable but none were formally tested. He was alert and oriented ?3. Insight and judgment are improving, and impulse control is improving. Vitals/I&O/Wt Last Vital Signs Temp 97.4 F L 08/26/20 19:42 Pulse 81 08/26/20 19:42 Resp 18 08/26/20 19:42 BP 126/73 08/26/20 19:42 Pulse Ox 96 08/26/20 19:42 08/26/20 08/26/20 08/27/20 14:59 22:59 06:59 Intake Total 290 / 290 50 / 340 1028.333 / 1368.333 Output Total 725 / 725 1100 / 1825 500 / 2325 Balance -435 / -435 -1050 / -1485 528.333 / -956.667 Data NPU : 08/26/20 05:01 08/28/20 05:13 Micro: Microbiology 08/24/20 21:10 Urine Culture - Preliminary Urine,Clean Catch Microbiology 08/24/20 21:10 Urine,Clean Catch Urine Culture - Preliminary A&P Additional A&P Information (1) Altered mental status: (2) Acute psychosis: (3) Smoking addiction: (4) Vitamin D deficiency: Additional A&P Information Tramaine presents today mostly elevated with a recent history of possible seizures, being off his medication and unclear about whether is psychiatric medications are effective or whether he needs ongoing psychiatric treatment. 1. Continue current medication. 2. Will attempt to get collateral information on a psychiatric history. 3. Does not appear to be psychiatrically decompensated or in need of ongoing inpatient hospitalization.. Attestations NPU Medical Necessity Statement*: N/A. Please refer to primary team note for medical necessity. Patient does not appear to be in need of inpatient psychiatric services and at this point denies any need for medication changes. Coding Level of Care Code Acute Manager Small Business for Tammy Cheng
--- NOTE | 2020-08-26 13:14 | PM.PN ---
Subjective Subjective: Interval history: Patient reports that he is here because of seizures. Family report that every time he does not take his medications this happens. He denies being depressed. His speech is not clear and at times difficult to understand. He denies headache, shortness of breath or chest pain. Medications: Reviewed: Yes Vitals/I&O/Wt Last Vital Signs Temp 97.5 F L 08/26/20 08:00 Pulse 89 08/26/20 08:00 Resp 18 08/26/20 08:00 BP 96/66 08/26/20 08:00 Pulse Ox 93 08/26/20 08:00 08/25/20 08/26/20 08/26/20 22:59 06:59 14:59 Intake Total 820 / 1150 50 / 1200 240 / 240 Output Total 300 / 1000 0 / 1000 725 / 725 Balance 520 / 150 50 / 200 -485 / -485 Weight last 48 hrs Weight 95.254 kg Weight 102.058 kg Physical Exam Const: COMMON NORMALS: no acute distress and patient oriented x3 Resp: COMMON NORMALS: normal respiratory effort and clear to auscultation bilaterally AUSCULTATION: clear to auscultation bilaterally Cardio: COMMON NORMALS: regular rate, regular rhythm and S2 normal heart sound present RATE: regular rate RHYTHM: regular rhythm HEART SOUNDS: S2 normal heart sound present OTHER: No lower extremity edema GI: COMMON NORMALS: Normal to inspection, nondistended, normoactive bowel sounds present, Soft to palpation and non-tender PALPATION: Yes Soft to palpation Neuro: COMMON NORMALS: patient oriented x3 and no focal motor deficits Data : 08/26/20 05:01 08/26/20 05:01 Micro: Microbiology 08/24/20 21:10 Urine Culture - Preliminary Urine,Clean Catch A&P Assessment and plan (1) Altered mental status: Etiology unclear. He is on multiple medications at home, 1 of which is carbamazepine. There is no level of this medication on admission. Tegretol level. CT head negative Cannot rule out overdose Status: Acute (2) Acute psychosis: He may have an underlying mental health disorder. There are notes from neurology in the past that patient has had hallucinations he describes during office visits. CT head negative Psychiatry consultation Check ammonia level Status: Acute (3) CARLOS (acute kidney injury): Resolving Status: Acute Additional A&P Information Hyperkalemia. Continue fluids. Give Kayexalate. Recheck BMP this afternoon and in the morning. Check TSH and cortisol level Possible aspiration pneumonitis. He is requiring 2 L of oxygen. Change Augmentin to Zosyn secondary to concern of poor oral intake Concern of alcoholism. Thiamine. [facility] protocol Transaminitis. Check hepatitis panel Full code N.p.o. DVT prophylaxis Heparin Rapid Covid negative PLAN: Awaiting medication levels and psychiatry evaluation. Attestations Medical Necessity Statement*: Patient with altered mental status requires close inpatient monitoring and treatment. Time Spent in Patient Care: 16 - 35 minutes Coding Level of Care Code Acute Swing Saw Operator for g Fwd Diagnoses Altered mental status R41.82 Acute psychosis F23 CARLOS (acute kidney injury) N17.9
[2020-08-26 16:00] VITALS: BP 110/60; PULSE 82; RESP 18; TEMP 36.3; O2SAT 98
[2020-08-26] MEDS: levETIRAcetam 500 mg Tablet 1500 MG PO (16:48)
[2020-08-26] MEDS: OLANZapine 5 mg TABLET PO (16:48)
[2020-08-26] MEDS: dextrose 5%-sod chloride 0.45% 1,000 ML 100 ML IV (16:48)
--- NOTE | 2020-08-26 18:30 | PC.NURSE ---
SHIFT SUMMARY PATIENT HAS BECOME MORE CALM THROUGHOUT THE DAY. PATIENT THREW HIS WATER CUP AT THIS NURSE THIS AM, BUT HAS BEEN CALMER THE REST OF THE DAY. PATIENT HAS TAKEN MEDICATIONS WITHOUT DIFFICULTY. PATIENT ALERT TO SELF, BIRTHDAY, AND PRESIDENT BUT IS UNSURE OF WHERE HE IS AND IS STILL SAYING OFF THE WALL THINGS. EXCELLENT URINE OUTPUT. CURRENTLY RESTING IN BED.
[2020-08-26 19:42] VITALS: BP 126/73; PULSE 81; RESP 18; TEMP 36.3; O2SAT 96
[2020-08-27] VITALS: BP 103/53; BP 95/62; PULSE 87; RESP 19; TEMP 36.7; O2SAT 93
[2020-08-27] MEDS: nicotine 21 mg Patch 1 PATCH TRANSDERMA ×2 (02:27→08:44)
[2020-08-27] MEDS: heparin 5,000 unit/mL INJ 1 mL 5000 UNIT SUBCUT ×2 (02:31→13:56)
[2020-08-27] MEDS: dextrose 5%-sod chloride 0.45% 1,000 ML 100 ML IV ×3 (02:35→23:43)
[2020-08-27 04:00] VITALS: BP 102/69; PULSE 82; RESP 18; TEMP 37; O2SAT 94
[2020-08-27] MEDS: levETIRAcetam 500 mg Tablet 1500 MG PO ×2 (06:01→18:03)
[2020-08-27] MEDS: piperacillin-tazobactam 3.375 GM in sodium chloride 0.9% (plus) 50 ML IV ×3 (06:02→23:38)
[2020-08-27 08:00] VITALS: BP 139/90; PULSE 93; RESP 16; TEMP 36.3; O2SAT 92
[2020-08-27] MEDS: multivitamin therapeutic Tablet 1 TAB PO (08:35)
[2020-08-27] MEDS: carBAMazepine 200 mg Tablet 400 MG PO ×2 (08:35→18:03)
[2020-08-27] MEDS: thiamine 100 mg Tablet PO (08:35)
[2020-08-27] MEDS: folic acid 1 mg Tablet PO (08:35)
--- NOTE | 2020-08-27 11:10 | PC.CHAP ---
Pastoral Care Encounter/Spiritual Assessment Type of Contact [] Declined can crimper visit [] Patient/Family/Request visit [] Outpatient visit [X] Follow-up visit [] Physician referral [] Code/Alert [X] Routine visit [] Staff referral [] Actively dying [] Patient sleeping [] Family support [] [] Out of room [] Palliative care [] [] Receiving care in room [] Pre-surgical visit [] Trauma [] Long length of stay [] ICU visit [] Other: Relational/Emotional Strength [] Patient feels connected with others/family/visitors/staff [] Distress [] Loneliness/isolation [] Abandonment Spirituality of Patient [] Person of Edel [] Attends Hindu of their Edel [] Believes in Prayer [] Reads Bible or Voodoo materials [] There are Spiritual issues to be addressed Fund Accounting Manager Interventions [] Prayer [X] Active listening [] Non-anxious presence [] Spiritual/emotional support [] Crisis/trauma care [] Spiritual counseling [] Bereavement support [] Provided bereavement packet [] Provided Bible/devotional materials [] Provided toy/stuffed animal, coloring book to patient or family member [] Provided Communion [] Anointing/[place] [] Salvation [] Completed spiritual assessment [] Other: Impact on Illness or Injury [] Angry [] Fearful [] Anxious [] Often cries [] Exhaustion [] Unable to work [] Unable to attend sikh [] Unable to walk/stand [] Unable to read [] Unable to drive [] Unable to eat/drink [] Unable to sleep [] Unable to be with family [] Patient intubated [] Other: Summary: It took me a few minutes before I realized that the patient could not have a coherent conversation. He has a sitter for whom I will hold in prayer, as well. Time spent with patient: 10 mins
[2020-08-27 12:00] VITALS: BP 126/90; PULSE 88; RESP 16; TEMP 36.4; O2SAT 97
[2020-08-27 16:00] VITALS: BP 112/80; PULSE 77; RESP 16; TEMP 36.4; O2SAT 99
--- NOTE | 2020-08-27 17:18 | PM.PN ---
Subjective Subjective: Interval history: Patient appears further improving. He is more alert. Denies shortness of breath or chest pain. He denies headache, shortness of breath or chest pain. Denies being depressed to having suicidal or homicidal ideations. Medications: Reviewed: Yes Vitals/I&O/Wt Last Vital Signs Temp 97.6 F 08/27/20 16:00 Pulse 77 08/27/20 16:00 Resp 16 08/27/20 16:00 BP 112/80 08/27/20 16:00 Pulse Ox 99 08/27/20 16:00 08/27/20 08/27/20 08/27/20 06:59 14:59 22:59 Intake Total 1028.333 / 7485.496 9668 / 2010 Output Total 500 / 2325 2975 / 2975 450 / 3425 Balance 528.333 / -956.667 -965 / -965 -450 / -1415 Physical Exam Const: COMMON NORMALS: no acute distress and patient oriented x3 Resp: COMMON NORMALS: normal respiratory effort and clear to auscultation bilaterally AUSCULTATION: clear to auscultation bilaterally Cardio: COMMON NORMALS: regular rate, regular rhythm and S2 normal heart sound present RATE: regular rate RHYTHM: regular rhythm HEART SOUNDS: S2 normal heart sound present OTHER: No lower extremity edema GI: COMMON NORMALS: Normal to inspection, nondistended, normoactive bowel sounds present, Soft to palpation and non-tender PALPATION: Yes Soft to palpation Neuro: COMMON NORMALS: patient oriented x3 and no focal motor deficits Data : 08/26/20 05:01 08/26/20 05:01 Micro: Microbiology 08/24/20 21:10 Urine Culture - Final Urine,Clean Catch A&P Assessment and plan (1) Altered mental status: Etiology unclear. improved. He is on multiple medications at home, 1 of which is carbamazepine. There is no level of this medication on admission. Tegretol level. CT head negative Cannot rule out overdose Status: Acute (2) Acute psychosis: He may have an underlying mental health disorder. There are notes from neurology in the past that patient has had hallucinations he describes during office visits. CT head negative Psychiatry consultation Check ammonia level Status: Acute (3) CARLOS (acute kidney injury): Resolving Status: Acute Additional A&P Information Hyperkalemia. Continue fluids. Give Kayexalate. Recheck BMP this afternoon and in the morning. Check TSH and cortisol level Possible aspiration pneumonitis. He is requiring 2 L of oxygen. Change Augmentin to Zosyn secondary to concern of poor oral intake Concern of alcoholism. Thiamine. [facility] protocol Transaminitis. Check hepatitis panel Full code N.p.o. DVT prophylaxis Heparin Rapid Covid negative PLAN: Awaiting psychiatry evaluation. Check CMP tomorrow and if further improves we can DC home in AM if ok by psychiatry. Attestations Medical Necessity Statement*: Patient with altered mental status requires inpatient monitoring and evaluation until deemed safe to be discharged. Time Spent in Patient Care: less than 15 minutes Coding Level of Care Code Acute Shoe Repair Cobbler for g Fwd Diagnoses Altered mental status R41.82 Acute psychosis F23 CARLOS (acute kidney injury) N17.9
--- NOTE | 2020-08-27 17:47 | P.PN_ITS ---
Subjective NPU Subjective: Interval history: My presents today reporting that things are unchanged including clear and denying any need or desire for interventions. He continues to report that he can depend on his brother for assistance. We did discussed the idea of someone else being available on top of his brother to make sure that medications were dispensed appropriately otherwise he denies any issues. Mental Status Exam MSE Comments: This is a well-nourished, well-developed white male in a h ospital gown with limited grooming, with improved grooming and eye contact. No abnormal movements except for mild psychomotor retardation. More cooperative with exam in no acute distress. Speech was more normal rate and volume with mild dysarthria. Mood not described as okay, affect congruent. Thought process organized. Thought content: Patient denied suicidal or homicidal ideations, there were no delusions reported or noted, he denied any auditory or visual hallucinations. Attention and concentration was intact and memory was more reliable but none were formally tested. He was alert and oriented ?3. Insight and judgment are improving, and impulse control is improving. Vitals/I&O/Wt Last Vital Signs Temp 97.6 F L 08/27/20 19:56 Pulse 78 08/27/20 19:56 Resp 18 08/27/20 19:56 BP 112/78 08/27/20 19:56 Pulse Ox 98 08/27/20 19:56 08/27/20 08/27/20 08/28/20 14:59 22:59 06:59 Intake Total 2009 290 / 2300 1000 / 3300 Output Total 3625 / 3625 2350 / 5975 1950 / 7925 Balance -1615 / -1615 -2060 / -3675 -950 / -1646 Data NPU : 08/26/20 05:01 08/28/20 05:13 Micro: Microbiology 08/24/20 21:10 Urine Culture - Final Urine,Clean Catch Microbiology 08/24/20 21:10 Urine,Clean Catch Urine Culture - Final A&P Additional A&P Information (1) Altered mental status: (2) Acute psychosis: (3) Smoking addiction: (4) Vitamin D deficiency: Tramaine presents today mostly elevated with a recent history of possible seizures, being off his medication and unclear about whether is psychiatric medications are effective or whether he needs ongoing psychiatric treatment. 1. Continue current medication. 2. Will attempt to get collateral information on a psychiatric history. 3. Does not appear to be psychiatrically decompensated, in need of specific medication change, or in need of ongoing inpatient hospitalization. Attestations NPU Medical Necessity Statement*: N/A. Please refer to primary team note for medical necessity. Patient does not appear to be in need of inpatient psychiatric services and at this point denies any need for medication changes. Would agree with discharge whenever appropriate. Coding Level of Care Code Acute Javascript Front End Developer for Tammy Cheng
[2020-08-27] MEDS: OLANZapine 5 mg TABLET PO (18:03)
--- NOTE | 2020-08-27 18:28 | PC.NURSE ---
Patient has been cooperative with cares during this shift. Patient has had good intake and output with good appetite. Pleasant and friendly. Continues to talk most of the shift with a one on one sitter.
[2020-08-27 19:56] VITALS: BP 112/78; PULSE 78; RESP 18; TEMP 36.4; O2SAT 98
[2020-08-28] VITALS (8 sets, daily range): BP systolic 81–130; BP diastolic 55–87; PULSE 71–82; RESP 16–19; TEMP 36.3–36.8; O2SAT 95–99
[2020-08-28] MEDS: heparin 5,000 unit/mL INJ 1 mL 5000 UNIT SUBCUT ×2 (02:24→14:40)
[2020-08-28] MEDS: levETIRAcetam 500 mg Tablet 1500 MG PO ×2 (06:18→17:47)
[2020-08-28] MEDS: piperacillin-tazobactam 3.375 GM in sodium chloride 0.9% (plus) 50 ML IV ×3 (06:18→22:35)
[2020-08-28 06:46] LABS: Alanine Aminotransferase 100 U/L (0-41); Albumin Level 4.1 g/dL (3.5-5.2); Alkaline Phosphatase 94 IU/L (40-130); Anion Gap 13.7 (5-19); Aspartate Amino Transferase 80 U/L (0-40); Blood Urea Nitrogen 3 mg/dL (6-20); Calcium 9.5 mg/dL (8.5-10.5); Carbon Dioxide 28 mmol/L (22-29); Chloride 98 mmol/L (98-107); Globulin 3.2 g/dL (1.3-4.6); Glomerular Filtration Rate 141.5 mL/min (90-130); Glucose 103 mg/dL (65-115); Osmolality Calculated 279 mOsm/kg (285-295); Potassium 3.7 mmol/L (3.5-5.1); Sodium 136 mmol/L (136-145); Total Bilirubin 0.3 mg/dL (0.15-1.2); Total Protein 7.3 g/dL (6.6-8.7)
[2020-08-28] MEDS: multivitamin therapeutic Tablet 1 TAB PO (09:28)
[2020-08-28] MEDS: thiamine 100 mg Tablet PO (09:29)
[2020-08-28] MEDS: folic acid 1 mg Tablet PO (09:29)
[2020-08-28] MEDS: carBAMazepine 200 mg Tablet 400 MG PO ×2 (09:29→17:47)
[2020-08-28] MEDS: nicotine 21 mg Patch 1 PATCH TRANSDERMA (09:30)
[2020-08-28] MEDS: dextrose 5%-sod chloride 0.45% 1,000 ML 100 ML IV ×2 (10:14→19:03)
--- NOTE | 2020-08-28 15:22 | PM.PN ---
Subjective Subjective: Interval history: Patient denies any shortness of breath or chest pain this morning. Denies any abdominal pain or problems with bowel movement. Patient was seen by Dr. Sosa and patient at this point appears psychiatrically stable. Appears to be doing well on current medications. Keppra level is still pending. Medications: Reviewed: Yes Vitals/I&O/Wt Last Vital Signs Temp 97.5 F L 08/28/20 11:41 Pulse 76 08/28/20 11:41 Resp 19 H 08/28/20 11:41 BP 107/74 08/28/20 11:41 Pulse Ox 97 08/28/20 11:41 08/28/20 08/28/20 08/28/20 06:59 14:59 22:59 Intake Total 1050 / 3350 1480 / 1480 Output Total 1950 / 7925 2074 / 2074 Balance -900 / -4575 -595 / -595 Physical Exam Const: COMMON NORMALS: no acute distress Resp: COMMON NORMALS: normal respiratory effort and clear to auscultation bilaterally AUSCULTATION: clear to auscultation bilaterally Cardio: COMMON NORMALS: regular rate, regular rhythm and S2 normal heart sound present RATE: regular rate RHYTHM: regular rhythm HEART SOUNDS: S2 normal heart sound present OTHER: No lower extremity edema GI: COMMON NORMALS: Normal to inspection, nondistended, normoactive bowel sounds present, Soft to palpation and non-tender PALPATION: Yes Soft to palpation Neuro: COMMON NORMALS: no focal motor deficits Data : 08/26/20 05:01 08/28/20 05:13 A&P Assessment and plan (1) Altered mental status: Etiology unclear. improved. He is on multiple medications at home, 1 of which is carbamazepine. There is no level of this medication on admission. Tegretol level. CT head negative Cannot rule out overdose Status: Acute (2) Acute psychosis: He may have an underlying mental health disorder. There are notes from neurology in the past that patient has had hallucinations he describes during office visits. CT head negative Psychiatry consultation Check ammonia level Status: Acute (3) CARLOS (acute kidney injury): Resolving Status: Acute Additional A&P Information Hyperkalemia. Continue fluids. Give Kayexalate. Recheck BMP this afternoon and in the morning. Check TSH and cortisol level Possible aspiration pneumonitis. He is requiring 2 L of oxygen. Change Augmentin to Zosyn secondary to concern of poor oral intake Concern of alcoholism. Thiamine. [facility] protocol Transaminitis. Check hepatitis panel Full code N.p.o. DVT prophylaxis Heparin Rapid Covid negative PLAN: Dr. Sosa is trying to obtain collateral psychiatric history on patient. Still awaiting for Keppra level. We will continue patient's current medications. Patient is followed by Dr. Gilman and outpatient follow-up appointment will be requested upon discharge Attestations Medical Necessity Statement*: Patient with acute psychosis and questionable seizure requires close inpatient monitoring and treatment until deemed safe for discharge. Coding Level of Care Code Acute Shear Tender for Chg Fwd Diagnoses Altered mental status R41.82 Acute psychosis F23 CARLOS (acute kidney injury) N17.9
[2020-08-28] MEDS: OLANZapine 5 mg TABLET PO (17:47)
--- NOTE | 2020-08-28 18:59 | PC.NURSE ---
This nurse went in patients room at 1700 and observed patient breathing fast, and looked to be talking in his sleep. Aroused patient with verbal communication and touch. Patient able to state his name, , they current year, and that he was in [place]. No seizure activity noted at this time. This nurse went back into patients room about 1730 patient was leaned forward with his head on his hand, mumbling, talking unclear. At this time patient again was able to tell this nurse his name, where he was, his and the current year. Then this nurse handed patient a tissue and asked if he could blow his nose, patient followed commands at this time. Again no seizure activity was noted.
--- NOTE | 2020-08-28 22:34 | PC.NURSE ---
REPORTED BP TO NURSE!
[2020-08-29] MEDS: heparin 5,000 unit/mL INJ 1 mL 5000 UNIT SUBCUT ×2 (01:51→13:08)
[2020-08-29] MEDS: dextrose 5%-sod chloride 0.45% 1,000 ML 100 ML IV (03:29)
[2020-08-29 04:00] VITALS: BP 100/60; PULSE 70; RESP 16; TEMP 36.6; O2SAT 98
--- NOTE | 2020-08-29 05:49 | PC.NURSE ---
SHIFT SUMMARY Awake much of night. Talks almost nonstop. Conversation rambles from subject to subject. Even noted to talk in his sleep quite a bit when did fall asleep. 1:1 sitter at bedside all shift. Pt denies pain. Kept telling me that coffee, chocolate and smoking stops him from having seizures. IV infusing without difficulty and receiving IV antibiotics.
[2020-08-29] MEDS: levETIRAcetam 500 mg Tablet 1500 MG PO (06:10)
[2020-08-29] MEDS: piperacillin-tazobactam 3.375 GM in sodium chloride 0.9% (plus) 50 ML IV (06:13)
[2020-08-29 06:38] LABS: Alanine Aminotransferase 83 U/L (0-41); Albumin Level 3.7 g/dL (3.5-5.2); Alkaline Phosphatase 87 IU/L (40-130); Anion Gap 10.9 (5-19); Aspartate Amino Transferase 57 U/L (0-40); Blood Urea Nitrogen 3 mg/dL (6-20); Calcium 9.1 mg/dL (8.5-10.5); Carbon Dioxide 28 mmol/L (22-29); Chloride 104 mmol/L (98-107); Globulin 2.7 g/dL (1.3-4.6); Glomerular Filtration Rate 118.4 mL/min (90-130); Glucose 128 mg/dL (65-115); Osmolality Calculated 286 mOsm/kg (285-295); Potassium 3.9 mmol/L (3.5-5.1); Sodium 139 mmol/L (136-145); Total Bilirubin 0.3 mg/dL (0.15-1.2); Total Protein 6.4 g/dL (6.6-8.7)
[2020-08-29 07:17] VITALS: BP 84/58; PULSE 79; RESP 16; TEMP 36.8; O2SAT 98
--- NOTE | 2020-08-29 07:17 | PC.NURSE ---
I reported Pts blood pressure to his nurse.
--- NOTE | 2020-08-29 08:04 | PC.NURSE ---
Patient had seizure activity at 0800 lasting about 2 mins. patient had some slight shaking and blank stare. Patient is currently eating jello and drinking with no difficulty.
--- NOTE | 2020-08-29 08:19 | P.PN_ITS ---
Subjective Subjective: Interval history: Patient denies any shortness of breath or chest pain this morning. Denies any abdominal pain or problems with urination. He just urinates frequently every 15 to 20 minutes. Reports that he is drinking large amount of fluids the same way as his mother was doing. He is not hyponatremic. Shortly after my evaluation patient had seizure episode witnessed by nursing staff that lasted for seconds. Patient turned his head to the left side with generalized low amplitude shakes. Patient was reevaluated and he was able to tell me what medications he takes at home. He takes Tegretol and Keppra. He appears may be slightly postictal. Discussed with Dr. Gilman who recommends to continue patient's home medications. She reports that patient is always psychotic and frequently does not take his medications. He bears diagnosis of schizophrenia and his brother does best he can to take care of patient and to make sure he takes his medications. Medications: Reviewed: Yes Vitals/I&O/Wt Last Vital Signs Temp 98.2 F 08/29/20 07:17 Pulse 79 08/29/20 07:17 Resp 16 08/29/20 07:17 BP 84/58 08/29/20 07:17 Pulse Ox 98 08/29/20 07:17 08/28/20 08/29/20 08/29/20 22:59 06:59 14:59 Intake Total 1321.667 / 2801.667 1493.333 / 4295.000 Output Total 1600 / 3675 750 / 4425 Balance -278.333 / -873.333 743.333 / -130.000 Physical Exam Const: COMMON NORMALS: no acute distress Resp: COMMON NORMALS: normal respiratory effort and clear to auscultation bilaterally AUSCULTATION: clear to auscultation bilaterally Cardio: COMMON NORMALS: regular rate, regular rhythm and S2 normal heart sound present RATE: regular rate RHYTHM: regular rhythm HEART SOUNDS: S2 normal heart sound present OTHER: No lower extremity edema GI: COMMON NORMALS: Normal to inspection, nondistended, normoactive bowel sounds present, Soft to palpation and non-tender PALPATION: Yes Soft to palpation Neuro: COMMON NORMALS: no focal motor deficits Data : 08/26/20 05:01 08/29/20 06:01 A&P Assessment and plan (1) Altered mental status: Etiology unclear. improved. He is on multiple medications at home, 1 of which is carbamazepine. There is no level of this medication on admission. Tegretol level. CT head negative Cannot rule out overdose Status: Acute (2) Acute psychosis: He may have an underlying mental health disorder. There are notes from neurology in the past that patient has had hallucinations he describes during office visits. CT head negative Psychiatry consultation Check ammonia level Status: Acute (3) CARLOS (acute kidney injury): Resolving Status: Acute (4) Complex partial epilepsy with generalization: This is likely the cause of patient's initial mental status changes. Status: Acute Additional A&P Information Hyperkalemia. Continue fluids. Give Kayexalate. Recheck BMP this afternoon and in the morning. Check TSH and cortisol level Possible aspiration pneumonitis. He is requiring 2 L of oxygen. Change Augmentin to Zosyn secondary to concern of poor oral intake Concern of alcoholism. Thiamine. [facility] protocol Transaminitis. Check hepatitis panel Full code N.p.o. DVT prophylaxis Heparin Rapid Covid negative PLAN: Will increase patient's Keppra to 2000 twice daily. Patient already received 1500 this morning and I will give 500 more now. I will discontinue Zosyn which was initiated for concern for aspiration and patient already received it for 5 days. Patient is being seen by speech therapy but for some reason I cannot see their notes. He is still on clear liquids and I am not sure why as he appears to be swallowing well. Will discuss with speech therapy and advance diet. Discussed with Dr. Sosa and he is planning to talk to patient's brother and review his psychiatric medications. Discussed with patient regarding home health and he did not opposed. I think home health would be very beneficial to make sure patient takes his medications as prescribed. We will ask PT to see patient as well. Attestations Medical Necessity Statement*: Patient with seizure disorder and schizophrenia requires close inpatient monitoring and treatment until deemed safe for discharge. Time Spent in Patient Care: Greater than 35 minutes Coding Level of Care Code Acute Administrator Pesticide for [facility] Fwd Diagnoses Altered mental status R41.82 Acute psychosis F23 CARLOS (acute kidney injury) N17.9 Complex partial epilepsy with generalization G40.209
[2020-08-29] MEDS: nicotine 21 mg Patch 1 PATCH TRANSDERMA (09:12)
[2020-08-29] MEDS: folic acid 1 mg Tablet PO (09:12)
[2020-08-29] MEDS: carBAMazepine 200 mg Tablet 400 MG PO ×2 (09:12→17:15)
[2020-08-29] MEDS: thiamine 100 mg Tablet PO (09:12)
[2020-08-29] MEDS: levETIRAcetam 500 mg Tablet PO (09:12)
[2020-08-29] MEDS: multivitamin therapeutic Tablet 1 TAB PO (09:12)
--- NOTE | 2020-08-29 10:02 | PC.NURSE ---
patient had seizure activity at 0945 that lasted about 7mins. patient was sitting up drinking water, sat the cup down and began throwing self around per sitter. when automatic typewriter inspector arrived, patient was still throwing self around and shaking. Dr Perales notified.
[2020-08-29 11:43] VITALS: BP 101/71; PULSE 92; RESP 17; TEMP 36.6; O2SAT 96
--- NOTE | 2020-08-29 12:15 | PC.NURSE ---
patient has seizure activity that lasted 1.5min. notified Dr Perales.
[2020-08-29] MEDS: valproic acid inj 1,000 MG in sodium chloride 0.9% 50 ML 55 MG IV (13:08)
[2020-08-29 13:38] LABS: Levetiracetam Keppra 17.9 mcg/mL
--- NOTE | 2020-08-29 14:24 | PC.NURSE ---
notified Dr Perales that patient had more seizure activity. This lasted 1.5min
[2020-08-29] MEDS: LORazepam 2 mg/mL INJ 1 mL IVP (14:32)
[2020-08-29 14:42] VITALS: BP 93/66; PULSE 69; RESP 15; TEMP 36.9; O2SAT 98
--- NOTE | 2020-08-29 15:16 | PC.NURSE ---
patient's sister called and requested updated on patient. patient's sister updated.
[2020-08-29] MEDS: OLANZapine 5 mg TABLET PO (17:15)
[2020-08-29] MEDS: levETIRAcetam 500 mg Tablet 2000 MG PO (17:15)
--- NOTE | 2020-08-29 18:30 | PC.NURSE ---
Rcvd verbal order from Dr Perales for tylenol. senior mortgage underwriter put order in.
[2020-08-29] MEDS: acetaminophen 325 mg Tablet PO (18:36)
[2020-08-29 20:00] VITALS: BP 92/62; PULSE 83; RESP 17; TEMP 36.7; O2SAT 97
[2020-08-29] MEDS: LORazepam 0.5 mg Tablet PO (20:28)
[2020-08-30] VITALS: BP 101/65; PULSE 58; RESP 18; TEMP 37.1; O2SAT 98
[2020-08-30] MEDS: dextrose 5%-sod chloride 0.45% 1,000 ML 100 ML IV ×2 (01:06→16:11)
[2020-08-30] MEDS: heparin 5,000 unit/mL INJ 1 mL 5000 UNIT SUBCUT ×2 (01:08→13:29)
[2020-08-30 04:00] VITALS: BP 110/71; PULSE 71; RESP 18; TEMP 36.9; O2SAT 97
--- NOTE | 2020-08-30 05:50 | PC.NURSE ---
SHIFT SUMMARY Slept more tonight. Quite talkative with sitter at bedside when awake. Is oriented with questions but still rambles with his conversation. No seizure activity has been observed. Large urine output per urinal tonight. Requests coffee often and still says coffee, chocolate and smoking keeps him from having seizures.
[2020-08-30 06:02] LABS: Alanine Aminotransferase 78 U/L (0-41); Albumin Level 3.7 g/dL (3.5-5.2); Alkaline Phosphatase 86 IU/L (40-130); Anion Gap 10.7 (5-19); Aspartate Amino Transferase 48 U/L (0-40); Blood Urea Nitrogen 2 mg/dL (6-20); Carbon Dioxide 28 mmol/L (22-29); Chloride 102 mmol/L (98-107); Globulin 2.6 g/dL (1.3-4.6); Glomerular Filtration Rate 118.4 mL/min (90-130); Glucose 109 mg/dL (65-115); Osmolality Calculated 281 mOsm/kg (285-295); Potassium 3.7 mmol/L (3.5-5.1); Sodium 137 mmol/L (136-145); Total Bilirubin 0.2 mg/dL (0.15-1.2); Total Protein 6.3 g/dL (6.6-8.7)
[2020-08-30] MEDS: levETIRAcetam 500 mg Tablet 2000 MG PO ×2 (06:21→17:12)
[2020-08-30] MEDS: LORazepam 0.5 mg Tablet PO ×2 (06:24→20:19)
[2020-08-30 07:47] VITALS: BP 94/67; PULSE 74; RESP 18; TEMP 36.6; O2SAT 98
[2020-08-30] MEDS: multivitamin therapeutic Tablet 1 TAB PO (08:26)
[2020-08-30] MEDS: thiamine 100 mg Tablet PO (08:26)
[2020-08-30] MEDS: folic acid 1 mg Tablet PO (08:27)
[2020-08-30] MEDS: carBAMazepine 200 mg Tablet 400 MG PO ×2 (08:27→17:13)
[2020-08-30] MEDS: nicotine 21 mg Patch 1 PATCH TRANSDERMA (08:27)
[2020-08-30 11:33] VITALS: BP 106/70; PULSE 82; RESP 17; TEMP 36.6; O2SAT 98
[2020-08-30] MEDS: divalproex ER 500 mg Tablet (24H) 1000 MG PO (13:29)
--- NOTE | 2020-08-30 14:22 | PM.PN ---
Subjective Subjective: Interval history: Patient denies any shortness of breath or chest pain this morning. He had no more episodes of seizure since yesterday. He denies shortness of breath or chest pain this morning. Continues to drink large amount of fluids and urinates frequently. Medications: Reviewed: Yes Vitals/I&O/Wt Last Vital Signs Temp 97.9 F 08/30/20 11:33 Pulse 82 08/30/20 11:33 Resp 17 08/30/20 11:33 BP 106/70 08/30/20 11:33 Pulse Ox 98 08/30/20 11:33 08/29/20 08/30/20 08/30/20 22:59 06:59 14:59 Intake Total 1240 / 2380 720 / 3100 Output Total 1100 / 3795 1475 / 5270 1405 / 1405 Balance 140 / -1415 -755 / -2170 -1405 / -1405 Physical Exam Const: COMMON NORMALS: no acute distress Resp: COMMON NORMALS: normal respiratory effort and clear to auscultation bilaterally AUSCULTATION: clear to auscultation bilaterally Cardio: COMMON NORMALS: regular rate, regular rhythm and S2 normal heart sound present RATE: regular rate RHYTHM: regular rhythm HEART SOUNDS: S2 normal heart sound present OTHER: No lower extremity edema GI: COMMON NORMALS: Normal to inspection, nondistended, normoactive bowel sounds present, Soft to palpation and non-tender PALPATION: Yes Soft to palpation Neuro: COMMON NORMALS: no focal motor deficits Data : 08/26/20 05:01 08/30/20 04:26 A&P Assessment and plan (1) Altered mental status: Etiology unclear. improved. He is on multiple medications at home, 1 of which is carbamazepine. There is no level of this medication on admission. Tegretol level. CT head negative Cannot rule out overdose Status: Acute (2) Acute psychosis: He may have an underlying mental health disorder. There are notes from neurology in the past that patient has had hallucinations he describes during office visits. CT head negative Psychiatry consultation Check ammonia level Status: Acute (3) CARLOS (acute kidney injury): Resolving Status: Acute (4) Complex partial epilepsy with generalization: This is likely the cause of patient's initial mental status changes. Status: Acute (5) Schizophrenia: Status: Acute Additional A&P Information Hyperkalemia. Continue fluids. Give Kayexalate. Recheck BMP this afternoon and in the morning. Check TSH and cortisol level Possible aspiration pneumonitis. He is requiring 2 L of oxygen. Change Augmentin to Zosyn secondary to concern of poor oral intake Concern of alcoholism. Thiamine. [facility] protocol Transaminitis. Check hepatitis panel Full code N.p.o. DVT prophylaxis Heparin Rapid Covid negative PLAN: We will continue current treatment and monitoring. Requested speech therapy reevaluation to make sure patient can safely tolerate diet. Continue with physical therapy If remains stable we will likely be able to dismiss patient home tomorrow. Attestations Medical Necessity Statement*: Patient with seizure disorder and schizophrenia requires close inpatient monitoring and treatment until deemed safe for discharge. Time Spent in Patient Care: 16 - 35 minutes Coding Level of Care Code Acute Special Education Curriculum Specialist for [facility] Fwd Exam Detailed Diagnoses Altered mental status R41.82 Acute psychosis F23 CARLOS (acute kidney injury) N17.9 Complex partial epilepsy with generalization G40.209 Schizophrenia F20.9
[2020-08-30 15:36] VITALS: BP 130/83; PULSE 81; RESP 17; TEMP 36.9; O2SAT 98
[2020-08-30] MEDS: OLANZapine 5 mg TABLET PO (17:13)
[2020-08-30 20:00] VITALS: BP 92/61; PULSE 80; RESP 19; TEMP 36.6; O2SAT 97
[2020-08-31] VITALS: BP 90/59; PULSE 73; RESP 18; TEMP 36.6; O2SAT 94
[2020-08-31] MEDS: dextrose 5%-sod chloride 0.45% 1,000 ML 100 ML IV (01:30)
[2020-08-31] MEDS: heparin 5,000 unit/mL INJ 1 mL 5000 UNIT SUBCUT ×2 (01:33→13:04)
[2020-08-31 04:00] VITALS: BP 99/73; PULSE 62; RESP 19; TEMP 37.1; O2SAT 96
[2020-08-31] MEDS: levETIRAcetam 500 mg Tablet 2000 MG PO (05:35)
--- NOTE | 2020-08-31 05:42 | PC.NURSE ---
SHIFT SUMMARY Rested well. 1:1 sitter at bedside throughout shift. Has had no seizure activity. Pleasant. Oriented but conversation still rambles from subject to subject. Voids per urinal with good output. Talking with sitter this am and drinking cup of coffee. IV infusing without difficulty
[2020-08-31 08:00] VITALS: BP 94/64; PULSE 87; RESP 16; TEMP 36.8; O2SAT 95
[2020-08-31] MEDS: nicotine 21 mg Patch 1 PATCH TRANSDERMA (08:13)
[2020-08-31] MEDS: folic acid 1 mg Tablet PO (08:13)
[2020-08-31] MEDS: multivitamin therapeutic Tablet 1 TAB PO (08:13)
[2020-08-31] MEDS: carBAMazepine 200 mg Tablet 400 MG PO (08:13)
[2020-08-31] MEDS: thiamine 100 mg Tablet PO (08:13)
--- NOTE | 2020-08-31 10:15 | P.DS_ITS ---
Discharge Providers Date of Admission: 08/24/20 22:52 Date of Discharge: August 31, 2020 Attending Provider at Admission: Vonda Whyte MD Attending Provider at Discharge: Francis Perales MD Primary Care Provider: NANCY Cramer Diagnoses at Discharge Discharge Diagnosis (1) Altered mental status: Status: Acute (2) Acute psychosis: Status: Acute (3) CARLOS (acute kidney injury): Status: Acute (4) Complex partial epilepsy with generalization: Status: Acute (5) Schizophrenia: Status: Acute Reason for Visit Reason for Visit: combative ams Hospital Course Hospital Course Patient with underlying schizophrenia and seizure disorder presented with altered mental status which felt to be related to acute seizure episode. Patient had several more episodes of seizure while hospitalized. Case was discussed with Dr. Gilman and Depakote was added and patient appears to be doing well and had no more seizures since day before yesterday. This morning patient denies shortness of breath or chest pain. Reports feeling much better and wants to go home. Social workers discussed case with patient's family and they do not want home health to see patient given his at times unpredictable behavior. Family reports that they will be staying with patient and taking care of his medications and making sure he takes them as prescribed. Outpatient follow-up with Dr. Gilman as well as [facility] will be requested. Patient is not interested in nicotine patch. Patient's liver enzymes show gra dual improvement. Patient reports drinking large amount of fluids and reports urinating frequently. Reports that he has been doing this for a long period of time. Physical Exam Const: COMMON NORMALS: no acute distress Resp: COMMON NORMALS: normal respiratory effort and clear to auscultation bilaterally AUSCULTATION: clear to auscultation bilaterally Cardio: COMMON NORMALS: regular rate, regular rhythm and S2 normal heart sound present RATE: regular rate RHYTHM: regular rhythm HEART SOUNDS: S2 normal heart sound present OTHER: No lower extremity edema GI: COMMON NORMALS: Normal to inspection, nondistended, normoactive bowel sounds present, Soft to palpation and non-tender PALPATION: Yes Soft to palpation Neuro: COMMON NORMALS: no focal motor deficits Discharge Data Data Completed and Pending: Completed Studies During Hospitalization Category Date Time Status CT head wo con* 7 0450 Urgent Cat Scan 08/24/20 20:57 Completed XR chest 1V nahum ble 13952 Urgent Exams 08/24/20 20:57 Completed Vitals: Last Vital Signs Temp 98.2 F 08/31/20 08:00 Pulse 87 08/31/20 08:00 Resp 16 08/31/20 08:00 BP 94/64 08/31/20 08:00 Pulse Ox 95 08/31/20 08:00 Discharge Plan Discharge Patient Disposition: Home Condition: Stable Prescriptions: New folic acid 1 mg Tablet 1 mg PO DAILY Qty: 30 RF: 0 thiamine mononitrate (vit B1) [Vitamin B-1 (mononitrate)] 100 mg Tablet 100 mg PO DAILY Qty: 30 RF: 0 divalproex 500 mg Tablet Extended Release 24 Hr 1,000 mg PO Q24H Qty: 60 RF: 0 Thera 400 mcg Tablet 1 tab PO DAILY Qty: 30 RF: 0 Continued acetaminophen 325 mg capsule 650 mg PO Q6H PRN (Reason: Pain) RF: 0 levetiracetam 500 mg tablet 2,000 mg PO BID Qty: 240 RF: 11 carbamazepine 400 mg tablet extended release 12 hr 400 mg PO BID Qty: 60 RF: 5 albuterol sulfate 90 mcg/actuation HFA aerosol inhaler 1 inh INHALATION Q6H PRN (Reason: shortness of breath or wheezing) Qty: 6.7 RF: 2 lorazepam 0.5 mg tablet 0.5 mg PO QID PRN (Reason: Anxiety) Qty: 90 RF: 2 olanzapine 5 mg Tablet 5 mg PO QPM RF: 0 cholecalciferol (vitamin D3) 4,000 unit capsule 4,000 unit PO DAILY Qty: 30 RF: 0 Discharge Orders: Discharge Order (Routine); Ordered 08/31/20 Ordered By: Francis Perales Referrals: Kady Gilman MD [Physician] - 4-7 days CATHRYN Mackey FNP [Primary Care Provider] - 4-7 days Discharge Diet: Usual diet Discharge Activity: Increase activity as tolerated Activity Restrictions/Additional Instructions: If you would like to get some additional help in your home, you may call the Department of [facility] and [facility] at [phone]. Please call your doctor or present to emergency department if your condition worsens or you develop diarrhea, lightheadedness, fatigue or see blood in your stool or black stool. Discharge Attestations Time Spent in Discharge Care*: greater than 30 min Quality Metrics Clinical Quality Measures During this hospital stay, did patient experience: None Coding Level of Care Code Acute School Speech Language Pathologist for [facility] Fwd Diagnoses Altered mental status R41.82 Acute psychosis F23 CARLOS (acute kidney injury) N17.9 Complex partial epilepsy with generalization G40.209 Schizophrenia F20.9
[2020-08-31 11:53] VITALS: BP 104/68; PULSE 87; RESP 16; TEMP 36.8; O2SAT 98
--- NOTE | 2020-08-31 12:12 | PC.NURSE ---
called patients family member for patient, Tony Remy, brother, answered and reports he will call back with an ETA for patient pickup.
--- NOTE | 2020-08-31 12:15 | PC.NURSE ---
patients pants and ID card returned to patient.
[2020-08-31] MEDS: divalproex ER 500 mg Tablet (24H) 1000 MG PO (13:03)
[2020-08-31 16:00] VITALS: BP 134/71; PULSE 87; RESP 16; TEMP 36.6; O2SAT 98
--- NOTE | 2020-08-31 17:01 | PC.NURSE ---
discharge instructions reviewed with patients family member, nephew, who came to pickle maker patient and with patient, both in agreement and denies further questions or concerns.
[2020-08-31 17:02] VITALS: BP 134/71; PULSE 87; RESP 16; TEMP 36.6; O2SAT 98
== END 2020-08-31 16:58 | disposition home or self-care (01) | DRG 100 ==
LOC: ER 22:59 → ICU 23:13 → MEDSURG 08-25 21:49
PROVIDERS: Internal Medicine; Admitting Provider Internal Medicine; Emergency Provider Emergency Medicine; PCP Nurse Practitioner Family; Visit Provider Internal Medicine
DX: G40.209 Localization-related (focal) (partial) symptomatic epilepsy and epileptic syndromes with complex partial seizures, not intractable, without status epilepticus (principal); J69.0 Pneumonitis due to inhalation of food and vomit; N17.9 Acute kidney failure, unspecified; R59.0 Localized enlarged lymph nodes; G89.4 Chronic pain syndrome; F41.1 Generalized anxiety disorder; E78.2 Mixed hyperlipidemia; F17.210 Nicotine dependence, cigarettes, uncomplicated; E87.5 Hyperkalemia; E55.9 Vitamin D deficiency, unspecified; F25.9 Schizoaffective disorder, unspecified; Z79.51 Long term (current) use of inhaled steroids; F06.8 Other specified mental disorders due to known physiological condition
CPT/HCPCS: 12345; 36415; 36600; 70450; 71045; 80048; 80053; 80074; 80156; 80177; 80306; 80307; 81001; 82140; 82533; 82803; 83605; 84443; 85025; 85610; 87086; 87426; 92526; 92610; 93005; 96372; 96375; 97161; 97530; 99283; J1644; J1953; J2060; J2543; J3411; J3490; J7030; J7799

== ENCOUNTER 2020-10-12 17:47 | Inpatient (IN) | payer MEDICAID, SELFPAY ==
[2020-10-12] VITALS (11 sets, daily range): BP systolic 87–149; BP diastolic 48–95; PULSE 71–96; RESP 12–19; O2SAT 92–100; BMI 26.8
--- NOTE | 2020-10-12 18:06 | XR_ITS ---
WS: [id number] Exam: XR chest 1V portable [id number] Date/Time of Exam: 10/12/2020 6:11 PM Reason For Exam: seizure/ AMS Comparison 12/18/2018 and 08/24/2020. There is coarsening of interstitial markings with reticular nodular pattern. There is also marked chr onic pulmonary vascular engorgement. Normal heart size. Postoperative changes seen in the region of t he right upper lobe with right apical pleural thickening. No pleural effusions or pneumothorax. Bony structures are intact. XR/XR chest 1V portable [id number] IMPRESSION: 1. Chronic appearing interstitial reticular nodular pattern with chronic pulmon david vascular congestion. 2. No acute consolidating pneumonia or pneumothorax. 3. Right-sided postoperative changes.
--- NOTE | 2020-10-12 18:06 | CTR_ITS ---
PROCEDURE INFORMATION: Exam: CT Head Without Contrast Exam date and time: 10/12/2020 6:11 PM Age: 55 years old Clinical indication: Condition or disease; Convulsions or seizures; Additional info: Seizure/ AMS TECHNIQUE: Imaging protocol: Computed tomography of the head without contrast. Radiation optimization: All CT scans at this facility use at least one of these dose optimization techniques: automated exposure control; mA and/or kV adjustment per patient size (includes targeted exams where dose is matched to clinical indication); or iterative reconstruction. COMPARISON: CT head wo con* [id number] 08/24/2020 10:32 PM RADIATION DOSE METRICS: Total DLP (mGy-cm): 650.56 FINDINGS: Brain: Mild parenchymal volume loss noted. No intracranial hemorrhage noted. No significant white matter disease demonstrated. Cerebral ventricles: No ventriculomegaly. Bones/joints: Unremarkable. No acute fracture. Paranasal sinuses: Visualized sinuses are unremarkable. No fluid levels. Mastoid air cells: Unremarkable as visualized. No mastoid effusion. Soft tissues: Unremarkable. CT/CT head wo con* [id number] IMPRESSION: 1. No acute intracranial abnormality demonstrated. 2. There is no interval change from the prior examination. Radiation Dose CTDIVOL = (mGy): DLP = 650.56 (mGy-cm)
--- NOTE | 2020-10-12 18:09 | ECG_ITS ---
[facility] Test Date: 2020-10-12 Pat Name: Tramaine Remy Department: Room: Gender: Male Western Felt Hat Blocker: : 1965 Requested By: Soy Ruiz Order Number: [id number] Garcia MD: Dhruv Bryant M.D. Measurements Intervals [place] Rate: 101 P: 69 WV: 164 QRS: 79 QRSD: 102 T: 78 QT: 330 QTc: 429 Interpretive Statements SINUS TACHYCARDIA POSSIBLE LEFT ATRIAL ENLARGEMENT [-0.1mV P WAVE IN V1/V2] POSSIBLE RIGHT VENTRICULAR CONDUCTION DELAY [RSR (QR) IN V1/V2] PROBABLE INFERIOR MYOCARDIAL INFARCTION , OF INDETERMINATE AGE [35 ms Q WAVE IN II/aVF] PROBABLE ANTEROLATERAL MYOCARDIAL INFARCTION , OF INDETERMINATE AGE [35 ms Q WAVE IN I/aVL/V3-V6] Compared to ECG 08/24/2020 21:00:30 Sinus rhythm no longer present Myocardial infarct finding still present Electronically Signed On 10-13-2020 18:30:01 REGISTERED TRAVEL NURSE by Dhruv Bryant M.D. [id number]
[2020-10-12] MEDS: haloperidol inj 5 mg/mL INJ 1 mL IM (18:35)
[2020-10-12] MEDS: diphenhydrAMINE 50 mg/mL SDV 1mL IM (18:36)
[2020-10-12 18:43] LABS: Add Urine Microscopic? NO
[2020-10-12 19:12] LABS: Amphetamines Screen Urine Negative (Negative); Barbiturates Screen Urine Negative (Negative); Benzodiazepines Screen Urine Negative (Negative); Cocaine Screen Urine Negative (Negative); Opiate Screen Urine Negative (Negative); PCP Screen Urine Negative (Negative); THC Screen Urine Negative (Negative)
[2020-10-12 19:13] LABS: Bilirubin Urine Neg (Negative); Blood Urine Neg (Negative); Glucose Urine UA Norm (Normal); Ketones Urine Negative (Negative); Leukocyte Esterase Urine Negative (Negative); Nitrate Urine Negative (Negative); Protein Urine Neg (Negative); Urine Appearance Clear (CLEAR); Urine Color Straw (Yellow); Urobilinogen Urine Norm (Negative); pH Urine 7 (5-7)
[2020-10-12 19:30] LABS: ABG PCO2 46.3 mmHg (35-45); ABG PH Result 7.39 (7.35-7.45); Arterial Blood Gas Hematocrit 38.5 % (42-52); Base Excess ABG 2.1 mmol/L (-2.0-2.0); Blood Gas Allen Test Pos; Blood Gas Operator Identificat HARKR; Blood Gas Sample Site Radial, right; Blood Gas Sample Type Arterial; Carboxyhemoglobin 3.9 %THgb (0.4-20.1); HCO3 ABG 27.7 mmol/L (22-26); HGB O2 Sat 88.6 % (95-100); Methemoglobin 0.5 % (0.4-1.5); Oxygen Device ROOM AIR; PO2 ABG 60.1 mmHg (80.0-100.0); Total Hemoglobin 12.5 g/dL (14-18)
--- NOTE | 2020-10-12 20:09 | ECG_ITS ---
[facility] Test Date: 2020-10-12 Pat Name: Tramaine Remy Department: Room: Gender: Male Xm1 Tank Driver: : 1965 Requested By: Soy Ruiz Order Number: [id number] Garcia MD: Dhruv Bryant M.D. Measurements Intervals [place] Rate: 75 P: 70 NV: 181 QRS: 78 QRSD: 102 T: 83 QT: 348 QTc: 390 Interpretive Statements SINUS RHYTHM POSSIBLE RIGHT VENTRICULAR CONDUCTION DELAY [RSR (QR) IN V1/V2] Compared to ECG 10/12/2020 18:11:56 Sinus tachycardia no longer present Myocardial infarct finding no longer present Electronically Signed On 10-13-2020 18:32:23 FINGER COBBLER by Dhruv Bryant M.D. [id number]
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
[2020-10-12 20:42] LABS: Basophils % 0.2 %; Eosinophils % 0.1 %; Hematocrit 36.9 % (42.0-52.0); Hemoglobin 12.5 g/dL (11.7-16.6); Lymphocytes # 1.8 10^3/uL (0.8-4.8); Mean Corpuscular HGB Conc 33.9 g/dL (30.0-36.0); Mean Corpuscular Hemoglobin 32.4 pg (28.0-34.0); Mean Corpuscular Volume 95.6 fL (80-94); Mean Platelet Volume 9.4 fL (7.4-10.4); Monocytes # 0.5 10^3/uL (0.2-0.9); Monocytes % 6.6 %; Neutrophils # 5.76 10^3/uL (1.8-7.7); Neutrophils % 70.9 %; Nucleated Red Blood Cells % 0 %; Platelet Count 262 10^3/cmm (130-400); Red Blood Count 3.86 10^6/uL (4.1-5.3); Red Cell Distribution Width 13.1 % (12.1-15.1); White Blood Count 8.1 10^3/uL (4.0-10.0)
[2020-10-12] MEDS: sodium chloride 0.9% 1,000 ML 999 ML IV (20:57)
[2020-10-12 21:06] LABS: Lactate (Lactic Acid level) 0.8 mmol/L (0.5-2.2)
[2020-10-12 21:08] LABS: Troponin(5th) Baseline 11 ng/L (0-15)
[2020-10-12 21:17] LABS: Alanine Aminotransferase 25 U/L (0-41); Albumin Level 3.9 g/dL (3.5-5.2); Alkaline Phosphatase 85 IU/L (40-130); Anion Gap 12.6 (5-19); Aspartate Amino Transferase 22 U/L (0-40); Blood Urea Nitrogen 5 mg/dL (6-20); Calcium 9.1 mg/dL (8.5-10.5); Carbon Dioxide 27 mmol/L (22-29); Chloride 96 mmol/L (98-107); Globulin 2.7 g/dL (1.3-4.6); Glomerular Filtration Rate 173.9 mL/min (90-130); Glucose 111 mg/dL (65-115); NT Pro B Type Natriuretic Pept 77 pg/mL (0-125); Osmolality Calculated 270 mOsm/kg (285-295); Potassium 4.6 mmol/L (3.5-5.1); Sodium 131 mmol/L (136-145); Total Bilirubin 0.2 mg/dL (0.15-1.2); Total Protein 6.6 g/dL (6.6-8.7)
[2020-10-12 21:22] LABS: Alcohol Level < 10 mg/dL (0-10)
--- NOTE | 2020-10-12 21:34 | P.HP_ITS ---
Providers/Chief Complaint Primary Care Provider: NANCY Cramer Chief Complaint: SEIZURE/ COMBATIVE History of Present Illness Tramaine Remy is a 55 year old male who was admitted for psychotic episode last month, episode of seizures were noticed while hospitalized, Depakote was added before discharge, neuropsychiatrist was also consulted who deemed him not appropriate for neuropsychiatric unit, patient was asked to follow-up with Dr. Delia grimm. Family refused home health service because they were afraid because of his unpredictable behavior. Brother is managing his medications at home. Today he was sent to the hospital after seizure was witnessed at home, EMS was called he was given Valium 5 mg for second seizure witnessed by EMS, after that he became very psychotic and aggressive, 100 mg of ketamine was administered. When he arrived in the ER he was still very belligerent so he was given Haldol 5 mg and Benadryl 50 mg IV. When I evaluated the patient he was awake, alert oriented to time place and person, he told me that he had a seizure at 1856, he is not endorsing any chest pain, shortness of breath, dysuria recent diarrhea sinus infection, he is stating that he was compliant with his medications but his brother takes care of his needs. He smokes on daily basis, he denies alcohol use. He is not able to recall any events from today but does seem to understand my questions and answer appropriately. Respiratory complaint of right mandible pain, he is denying urinary/rectal incontinence. He did not bite his tongue CBC, BMP reviewed, mild hyponatremia, glucose 111, no sign of sepsis, CT head unremarkable, no signs of meningitis, valproic acid level very low, he was loaded with valproic acid in the ED Will admit to ICU I have requested magnesium level and carbamazepine level and Keppra. EKG has sinus rhythm with RSR pattern, no QTC prolonged chest x-ray unremarkable Review of Systems Const: Reports: body aches; Denies: fever(s) or chills Eyes: Denies: change in vision ENMT: Reports: mouth pain; Denies: throat pain Card: Denies: chest pain Resp: Denies: dyspnea GI: Denies: abdominal pain : Denies: flank pain Musc: Denies: neck pain Skin/Breast: Denies: rash Neuro: Denies: headache(s) Psych: Reports: memory loss; Denies: anxiety Endo: Denies: polyuria Richie/Lymph: Denies: easy bruising All/Imm: Denies: urticaria Medications/Allergies Home Medications Medication Instructions Recorded Confirmed Last Taken Type olanzapine 5 mg PO QPM 10/12/19 10/12/20 Unknown History cholecalciferol (vitamin D3) 4,000 unit PO DAILY #30 cap 10/13/19 10/12/20 Unknown Rx acetaminophen 325 mg capsule 650 mg PO Q6H PRN 10/27/19 10/12/20 Unknown History levetiracetam 500 mg tablet 2,000 mg PO BID #240 tab 05/30/20 10/12/20 Unknown Rx carbamazepine 400 mg 400 mg PO BID #60 tab 05/31/20 10/12/20 Unknown Rx tablet,extended release,12 hr folic acid 1 mg PO DAILY #30 tab 08/28/20 10/12/20 Unknown Rx multivitamin with folic acid 1 tab PO DAILY #30 tab 08/28/20 10/12/20 Unknown Rx [Thera] thiamine mononitrate (vit B1) 100 mg PO DAILY #30 tab 08/28/20 10/12/20 Unknown Rx [Vitamin B-1 (mononitrate)] albuterol sulfate 90 mcg/actuation 1 inh INHALATION Q6H PRN #6.7 gm 08/29/20 10/12/20 Unknown Rx aerosol inhaler lorazepam 0.5 mg tablet 0.5 mg PO QID PRN #90 tab 08/29/20 10/12/20 Unknown Rx divalproex 1,000 mg PO Q24H #60 tab 08/31/20 10/12/20 Unknown Rx Allergies Allergy/AdvReac Type Severity Reaction Status Date / Time bismuth subsalicylate Allergy unknown Verified 08/24/20 21:04 [From Kaopectate (bismuth subsalicy)] multivitamin [From Centrum] Allergy unknown Verified 08/24/20 21:04 cholesterol medication Allergy unknown Uncoded 08/24/20 21:04 PFSH Acute PFSH: Medical History (Updated 10/12/20 @ 22:34 by Vonda Whyte MD) Chronic pain syndrome Complex partial epilepsy with generalization SYDNEY (generalized anxiety disorder) Mixed hyperlipidemia Schizophrenia Seizure disorder Surgical History (Updated 10/12/20 @ 22:32 by Vonda Whyte MD) History of mandibular surgery Right mandible fracture Status post lung surgery bullectomy Family History Other Heart disease Social History Smoking and tobacco status: current every day smoker cigarettes Packs smoked per day: 1 Alcohol intake: never Lives independently: Yes Housing: House Vitals/I&O/Wt Last Vital Signs Pulse 71 10/12/20 21:25 Resp 13 10/12/20 21:25 BP 98/65 10/12/20 21:25 Pulse Ox 97 10/12/20 21:25 Weight last 48 hrs Weight 113.398 kg Physical Exam Narrative: EXAM NARRATIVE: Middle-age male Unkept appearance however does not look dehydrated Well-built He was awake and alert when I evaluated the patient GCS 15, awake alert oriented x3 He is able to tell me time of seizure his name date of his brother's name Able to follow my commands No focal deficit however angle of mouth deviated but he is edentulous No tongue bite noticed, right mandible plate noted no active signs of infection S1, S2 sinus rhythm Blood pressure 130/88 mmHg No active chest pain, Abdomen soft, distended, bloated nontender Bilateral breath sounds without adventitious rhonchi or crackles no acute respite distress No active joint swelling, skin does not show any cellulitis He is cooperative and pleasant during my evaluation Data : 10/12/20 20:30 10/12/20 20:30 A&P Assessment and plan (1) Breakthrough seizure: Status: Acute (2) Hyponatremia: Status: Acute Additional A&P Information Breakthrough seizure with underlying history of epilepsy Valproic acid level very low Questionable compliance with his medications Loaded with valproic in the ER I will add Keppra level and carbamazepine level, please note he is on higher dosages of anticonvulsants and lower valproic acid level means he is not taking his medications appropriately Monitor in ICU Currently he is awake alert able to protect airways very pleasant and cooperative I will continue thiamine and folic acid level, check drug screen No sign of sepsis meningitis, no other inciting event for status breakthrough seizure noted, CT head unremarkable Hyponatremia Patient has history of smoking, x-ray is not showing any masslike appearance, patient is not endorsing hemoptysis This most likely secondary to poor p.o. intake however he looks euvolemic and well built I highly doubt mild hyponatremia would be the cause of his breakthrough seizures, but it does increase depolarization of neurons, his calcium is normal 9.1, will followup with his magnesium level Blood glucose 111 Monitor in ICU Start him on normal saline 75 cc/h Calculated osmolality 270, will check urine sodium and osmolality Nicotine dependence: Would need extensive counseling for smoking cessation Right mandible pain Mandible plate is in place without any active signs of infection no signs of purulence posterior pharyngeal wall not hyperemic Do not suspect any infection at this point No sepsis Full code advance if no seizures witnessed overnight Full liquid diet DVT prophylaxis Attestations Medical Necessity Statement*: Anticipating stay in the hospital cross more than 2 midnights currently need evaluation in the ICU for recurrent breakthrough seizures, as he is at risk of status epilepticus and breakthrough seizures Time Spent in Patient Care: 55mins Coding Level of Care Code Acute Director Of Consumer Marketing for Tammy Cheng Diagnoses Breakthrough seizure G40.919 Hyponatremia E87.1
[2020-10-12 21:38] LABS: Valproic Acid Level 2.8 ug/mL (50-100)
[2020-10-12] MEDS: valproic acid inj 1,000 MG in sodium chloride 0.9% 50 ML 55 MG IV (22:20)
[2020-10-12 22:47] LABS: Carbamazepine Tegretol 13.3 ug/mL (4.0-12.0)
[2020-10-12 22:58] LABS: Troponin 5 2HR 10.94 ng/L (0-15); Troponin 5 2HR Delta -0.06 ABS# (0-10)
[2020-10-13] VITALS (41 sets, daily range): BP systolic 100–157; BP diastolic 57–100; PULSE 62–95; RESP 13–19; TEMP 36.7–36.8; O2SAT 92–100
--- NOTE | 2020-10-13 02:59 | PC.NURSE ---
Lori GRANADOS called at [phone] for patient report
[2020-10-13] MEDS: sodium chloride 0.9% 1,000 ML 75 ML IV (03:35)
[2020-10-13] MEDS: enoxaparin 40 mg/0.4 mL Syringe SUBCUT (03:36)
[2020-10-13 03:40] LABS: Basophils % 0.5 %; Eosinophils % 0.6 %; Hematocrit 36.3 % (42.0-52.0); Hemoglobin 11.9 g/dL (11.7-16.6); Lymphocytes # 2.6 10^3/uL (0.8-4.8); Lymphocytes % 41.2 %; Mean Corpuscular HGB Conc 32.8 g/dL (30.0-36.0); Mean Corpuscular Hemoglobin 31.2 pg (28.0-34.0); Mean Platelet Volume 9.2 fL (7.4-10.4); Monocytes # 0.6 10^3/uL (0.2-0.9); Monocytes % 9.4 %; Neutrophils # 3.09 10^3/uL (1.8-7.7); Neutrophils % 48.1 %; Nucleated Red Blood Cells % 0 %; Platelet Count 282 10^3/cmm (130-400); Red Blood Count 3.82 10^6/uL (4.1-5.3); Red Cell Distribution Width 13.1 % (12.1-15.1); White Blood Count 6.4 10^3/uL (4.0-10.0)
[2020-10-13 04:14] LABS: Blood Urea Nitrogen 5 mg/dL (6-20); Carbon Dioxide 28 mmol/L (22-29); Chloride 96 mmol/L (98-107); Glomerular Filtration Rate 173.9 mL/min (90-130); Glucose 95 mg/dL (65-115); Magnesium 1.9 mg/dL (1.7-2.3); Osmolality Calculated 271 mOsm/kg (285-295); Sodium 132 mmol/L (136-145)
[2020-10-13] MEDS: divalproex ER 500 mg Tablet (24H) 1000 MG PO (06:03)
[2020-10-13] MEDS: acetaminophen 325 mg Tablet 650 MG PO (07:54)
--- NOTE | 2020-10-13 09:24 | PC.CHAP ---
Pastoral Care Encounter/Spiritual Assessment Type of Contact [] Declined mitochondrial disorders counselor visit [] Patient/Family/Request visit [] Outpatient visit [] Follow-up visit [] Physician referral [] Code/Alert [] Routine visit [] Staff referral [] Actively dying [] Patient sleeping [] Family support [] [] Out of room [] Palliative care [] [] Receiving care in room [] Pre-surgical visit [] Trauma [] Long length of stay [x] ICU visit [] Other: Relational/Emotional Strength [] Patient feels connected with others/family/visitors/staff [] Distress [] Loneliness/isolation [] Abandonment Spirituality of Patient [] Person of Edel [] Attends Faith of their Edel [] Believes in Prayer [] Reads Bible or Sabianist materials [] There are Spiritual issues to be addressed Aircraft Body Repairer Interventions [x] Prayer [] Active listening [] Non-anxious presence [] Spiritual/emotional support [] Crisis/trauma care [] Spiritual counseling [] Bereavement support [] Provided bereavement packet [] Provided Bible/devotional materials [] Provided toy/stuffed animal, coloring book to patient or family member [] Provided Communion [] Anointing/[place]eflin [] Salvation [x] Completed spiritual assessment [] Other: Impact on Illness or Injury [] Angry [] Fearful [] Anxious [] Often cries [] Exhaustion [] Unable to work [] Unable to attend baptist [] Unable to walk/stand [] Unable to read [] Unable to drive [] Unable to eat/drink [] Unable to sleep [] Unable to be with family [] Patient intubated [] Other: Summary Time spent with patient
[2020-10-13] MEDS: multivitamin therapeutic Tablet 1 TAB PO (09:38)
[2020-10-13] MEDS: carBAMazepine XR (12 HR) 200 mg Tablet 400 MG PO ×2 (09:39→17:35)
[2020-10-13] MEDS: folic acid 1 mg Tablet PO (09:39)
[2020-10-13] MEDS: thiamine 100 mg Tablet PO (09:39)
[2020-10-13] MEDS: levETIRAcetam 500 mg Tablet 2000 MG PO ×2 (09:39→17:36)
[2020-10-13] MEDS: LORazepam 0.5 mg Tablet PO (09:48)
--- NOTE | 2020-10-13 13:13 | PM.PN ---
Subjective Subjective: Interval history: Overnight labs and H&P reviewed. No further seizure episodes noted. Patient currently awake alert and oriented, to be moved out of ICU today. Medications: Reviewed: Yes Vitals/I&O/Wt Last Vital Signs Temp 98.3 F 10/13/20 09:00 Pulse 81 10/13/20 12:00 Resp 16 10/13/20 12:00 BP 144/93 10/13/20 12:00 Pulse Ox 98 10/13/20 12:00 10/12/20 10/13/20 10/13/20 22:59 06:59 14:59 Intake Total 1060 / 1060 240 / 240 Output Total 550 / 550 2950 / 2950 Balance 510 / 510 -2710 / -2710 Weight last 48 hrs Weight 113.398 kg Physical Exam Narrative: EXAM NARRATIVE: GEN: Awake, alert and oriented, no acute distress CVS: S1S2 N RS: CTA B/L Abd: Soft, nt/nd , bs+ ELECTRONICS SCALE TESTER: no focal neuro deficits Data : 10/13/20 03:29 10/13/20 03:29 A&P Assessment and plan (1) Hyponatremia: Status: Acute (2) Breakthrough seizure: Status: Acute (3) Seizure: Status: Acute (4) Schizophrenia: Status: Acute Qualifiers: Schizophrenia type: unspecified Qualified Code(s): F20.9 - Schizophrenia, unspecified (5) Vitamin D deficiency: Status: Acute (6) Smoking addiction: Status: Acute Additional A&P Information Breakthrough seizure with underlying history of epilepsy Valproic acid level very low, likely 2/2 missed medication, states did not get medications in mail recently Loaded with valproic in the ER, continue 1000mg po q24h, carbamazepine 400mg q12h, keppra 2g PO BID Currently he is awake alert able to protect airways very pleasant and cooperative CT head negative for acute events Hyponatremia Discontinue NS, encourage po intake Nicotine dependence: Would need extensive counseling for smoking cessation Right mandible pain Mandible plate is in place without any active signs of infection no signs of purulence posterior pharyngeal wall not hyperemic Do not suspect any infection at this point No sepsis Full code Attestations Medical Necessity Statement*: transfer out of ICU, discharge in the next 24 hrs if no further seizures Coding Level of Care Code Acute Entry Level Accounting Clerk for Tammy Cheng Diagnoses Hyponatremia E87.1 Breakthrough seizure G40.919 Seizure R56.9 Schizophrenia F20.9 Schizophrenia type: unspecified Vitamin D deficiency E55.9 Smoking addiction F17.200
[2020-10-13] MEDS: acetaminophen 500 mg Tablet 1000 MG PO (16:54)
[2020-10-13] MEDS: OLANZapine 5 mg TABLET PO (17:35)
--- NOTE | 2020-10-13 18:45 | PC.NURSE ---
pt. has occ. pain in right jaw, d/t metal platein there.
[2020-10-14] VITALS (16 sets, daily range): BP systolic 111–141; BP diastolic 65–79; PULSE 62–78; RESP 18–20; TEMP 36.6–36.7; O2SAT 94–100
[2020-10-14] MEDS: enoxaparin 40 mg/0.4 mL Syringe SUBCUT (02:42)
[2020-10-14] MEDS: LORazepam 0.5 mg Tablet PO (04:20)
[2020-10-14] MEDS: acetaminophen 500 mg Tablet 1000 MG PO (04:20)
[2020-10-14] MEDS: divalproex ER 500 mg Tablet (24H) 1000 MG PO (05:24)
[2020-10-14] MEDS: levETIRAcetam 500 mg Tablet 2000 MG PO (09:19)
[2020-10-14] MEDS: thiamine 100 mg Tablet PO (09:19)
[2020-10-14] MEDS: folic acid 1 mg Tablet PO (09:20)
[2020-10-14] MEDS: carBAMazepine XR (12 HR) 200 mg Tablet 400 MG PO (09:20)
[2020-10-14] MEDS: multivitamin therapeutic Tablet 1 TAB PO (09:20)
--- NOTE | 2020-10-14 12:18 | P.DS_ITS ---
Discharge Providers Date of Admission: 10/13/20 02:09 Date of Discharge: October 14, 2020 Attending Provider at Admission: Vonda Whyte MD Attending Provider at Discharge: Marie Deutsch MD Primary Care Provider: NANCY Cramer Diagnoses at Discharge Discharge Diagnosis (1) Hyponatremia: Status: Acute (2) Breakthrough seizure: Status: Acute (3) Seizure: Status: Acute (4) Schizophrenia: Status: Acute Qualifiers: Schizophrenia type: unspecified Qualified Code(s): F20.9 - Schizophrenia, unspecified (5) Vitamin D deficiency: Status: Acute (6) Smoking addiction: Status: Acute Reason for Visit Reason for Visit: SEIZURE/ COMBATIVE Hospital Course Hospital Course Tramaine Remy is a 55 year old male with PMH Chronic pain syndrome, complex partial epilepsy with generalization, SYDNEY (generalized anxiety disorder), mixed hyperlipidemia, schizophrenia who presented to the ER with c/o breakthrough seizures on 10/12/20. He reports that recently his mail order prescriptions did not come through on time so he may have missed a few doses of his medications. He is unable to read, therefore he doesn't know which medication he takes exactly. Missed medications or not being able to take as prescribed may be a prospective trigger. Carbamazepine level was noted to be elavted at 13.3, therefore dose decreased to 300mg PO BID. Keppra and Valproate continued. REcommended to f/up with Dr. Gilman in 2 weeks and CATHRYN Mackey in one week to f/up Carbamazepine levels. He remained seizure free during course of admission here. Medication changed explained to family members who help him with medications. Physical Exam Narrative: EXAM NARRATIVE: GEN: Awake, alert and oriented, no acute distress CVS: S1S2 N RS: CTA B/L Abd: Soft, nt/nd , bs+ COMPREHENSIVE ADVISOR: no focal neuro deficits Discharge Data Data Completed and Pending: Completed Studies During Hospitalization Category Date Time Status CT head wo con* 7 0450 Urgent Cat Scan 10/12/20 18:06 Completed XR chest 1V [place]ahum ble [id number] Urgent Exams 10/12/20 18:06 Completed Pending at discharge Category Date Time Status Levetiracetam Kep pra Stat Lab 10/12/20 20:48 Received Vitals: Last Vital Signs Temp 98.0 F 10/14/20 11:47 Pulse 78 10/14/20 11:47 Resp 18 10/14/20 11:47 BP 135/73 10/14/20 11:47 Pulse Ox 98 10/14/20 11:47 Discharge Plan Discharge Patient Disposition: Home Condition: Stable Prescriptions: New carbamazepine 200 mg Tablet Extended Release 12 Hr 300 mg PO BID 30 Days Qty: 90 RF: 0 Continued albuterol sulfate 90 mcg/actuation HFA aerosol inhaler 1 inh INHALATION Q6H PRN (Reason: shortness of breath or wheezing) Qty: 6.7 RF: 2 lorazepam 0.5 mg tablet 0.5 mg PO QID PRN (Reason: Anxiety) Qty: 90 RF: 2 olanzapine 5 mg Tablet 5 mg PO QPM RF: 0 cholecalciferol (vitamin D3) 4,000 unit capsule 4,000 unit PO DAILY Qty: 30 RF: 0 acetaminophen 650 mg Tablet 1,000 mg PO Q6H PRN (Reason: Pain) RF: 0 levetiracetam 500 mg tablet 2,000 mg PO BID Qty: 240 RF: 11 divalproex 500 mg Tablet Extended Release 24 Hr 1,000 mg PO Q24H Qty: 60 RF: 0 folic acid 1 mg Tablet 1 mg PO DAILY Qty: 30 RF: 0 thiamine mononitrate (vit B1) [Vitamin B-1 (mononitrate)] 100 mg Tablet 100 mg PO DAILY Qty: 30 RF: 0 multivitamin with folic acid [Thera] 400 mcg Tablet 1 tab PO DAILY Qty: 30 RF: 0 Discontinued carbamazepine 400 mg tablet extended release 12 hr 400 mg PO BID Qty: 60 RF: 5 Discharge Orders: Discharge Order (Routine); Ordered 10/14/20 Ordered By: Marie Deutsch Referrals: [facility] [Outside] Kady Gilman MD [Physician] - 2 weeks CATHRYN Mackey FNP [Primary Care Provider] - 4-7 days Discharge Diet: Usual diet Discharge Activity: Resume usual activity Activity Restrictions/Additional Instructions: follow up with your primary car eprovider and get carbamazepine level tested in one week. Your carbamazepine dose has been changed from 400mg twice a day to 300mg twice a day Discharge Attestations Time Spent in Discharge Care*: greater than 30 min Specific Discharge Activities: educating and/or supporting family/caregiver Quality Metrics Clinical Quality Measures During this hospital stay, did patient experience: None Coding Level of Care Code Acute Transit Bus Operator for Chg Fwd Diagnoses Hyponatremia E87.1 Breakthrough seizure G40.919 Seizure R56.9 Schizophrenia F20.9 Schizophrenia type: unspecified Vitamin D deficiency E55.9 Smoking addiction F17.200
--- NOTE | 2020-10-16 16:10 | PC.RESP ---
Smoking Cessation information sent to patient.
[2020-10-17 16:53] LABS: Levetiracetam Keppra 26.8 mcg/mL
== END 2020-10-14 12:10 | disposition home or self-care (01) | DRG 101 ==
LOC: ER 21:56 → ICU 10-13 02:10
PROVIDERS: Admitting Provider Internal Medicine; Emergency Provider Family Medicine; PCP Nurse Practitioner Family; Visit Provider Student in an Organized Health Care Education/Training Program
DX: G40.209 Localization-related (focal) (partial) symptomatic epilepsy and epileptic syndromes with complex partial seizures, not intractable, without status epilepticus (principal); E87.1 Hypo-osmolality and hyponatremia; F17.210 Nicotine dependence, cigarettes, uncomplicated; G89.4 Chronic pain syndrome; E78.2 Mixed hyperlipidemia; F41.1 Generalized anxiety disorder; F20.9 Schizophrenia, unspecified; R68.84 Jaw pain; E55.9 Vitamin D deficiency, unspecified; Z91.14 Patient's other noncompliance with medication regimen
CPT/HCPCS: 12345; 36600; 70450; 71045; 80048; 80053; 80156; 80164; 80177; 80306; 80307; 81003; 82805; 83605; 83735; 83880; 84484; 85025; 93005; 96372; 99284; J1200; J1630; J1650; J7030

== ENCOUNTER 2020-10-19 23:36 | Observation (INO) | payer MEDICAID, SELFPAY ==
--- NOTE | 2020-10-19 23:37 | CTR_ITS ---
PROCEDURE INFORMATION: Exam: CT Head Without Contrast Exam date and time: 10/19/2020 12:25 AM Age: 55 years old Clinical indication: Altered mental status/memory loss; Additional info: Seizure, AMS TECHNIQUE: Imaging protocol: Computed tomography of the head without contrast. Radiation optimization: All CT scans at this facility use at least one of these dose optimization techniques: automated exposure control; mA and/or kV adjustment per patient size (includes targeted exams where dose is matched to clinical indication); or iterative reconstruction. ADDITIONAL STUDY INFORMATION: Total DLP (mGy-cm): 876.87 COMPARISON: CT head wo con* [id number] 10/12/2020 7:46 PM FINDINGS: Examination is limited by artifacts from patient motion. Evaluation of the brain demonstrates no convincing areas of abnormal density when allowing for artifacts from patient motion. There is mild cerebral cortical volume loss, unexpected for the patient's stated age. Ventricles do not appear significantly dilated. There is mildly prominent cisterna magna, a developmental variant. No definite depressed calvarial fracture is demonstrated. Visualized paranasal sinuses and mastoid air cells demonstrate no significant opacification. CT/CT head wo con* [id number] IMPRESSION: No definite acute intracranial process is demonstrated when allowing for artifacts from patient motion. There is mild cerebral cortical volume loss, unexpected for the patient's stated age. Radiation Dose CTDIVOL = (mGy): DLP = 876.87 (mGy-cm)
--- NOTE | 2020-10-19 23:37 | XR_ITS ---
WS: [id number] Portable AP supine chest, 10/20/2020 Clinical Data: Seizure Comparison: Portable chest, 10/12/2020. Findings: No nodules, masses or effusions are seen. The heart is normal. Bilateral increased intersti tial markings are seen. This could represent pulmonary vascular congestion or chronic interstitial carson ng disease. The aortic arch and descending aorta shows mild tortuosity. XR/XR chest 1V portable [id number] Impression: 1. No change in interstitial opacities which may represent vascular congestion or chronic interstitial pneumonia. 2. Atherosclerosis.
[2020-10-19 23:38] VITALS: BP 95/77; PULSE 103; RESP 18; TEMP 36.6; O2SAT 93; BMI 26.8
[2020-10-19] MEDS: LORazepam 2 mg/mL INJ 1 mL IVP (23:38)
--- NOTE | 2020-10-19 23:39 | ECG_ITS ---
[facility] Test Date: 2020-10-20 Pat Name: Tramaine Remy Department: Room: 256 Gender: Male Cardiac Cath Lab Manager: : 1965 Requested By: Anna Avila Order Number: [id number] Jose MD: Dhruv Bryant M.D. Measurements Intervals [place] Rate: 86 P: 62 CA: 177 QRS: 73 QRSD: 98 T: 78 QT: 345 QTc: 414 Interpretive Statements SINUS RHYTHM POSSIBLE RIGHT VENTRICULAR CONDUCTION DELAY [RSR (QR) IN V1/V2] Compared to ECG 10/12/2020 20:11:55 No significant changes Electronically Signed On 10-20-2020 17:16:49 ROLLING ATTENDANT by Dhruv Bryant M.D. [id number]
--- NOTE | 2020-10-19 23:42 | ED_ITS ---
HPI - Seizure General: Chief Complaint: Seizure Stated Complaint: SEIZURE Time Seen by Provider: 10/19/20 23:36 Source: EMS Mode of arrival: EMS Limitations: altered mental status History of Present Illness: HPI Narrative: 55-year-old male who is well-known to the ER has a long history of seizures. He is recently admitted for breakthrough seizures. He had 2 seizures tonight per EMS. Patient is currently postictal at this time and no history is available from patient. He was combative at the scene as well and patient been given ketamine. He has had no known fevers or injuries. Seizure History: Yes Review of Systems General: Reports: ROS unobtainable due to mental status PFSH ED PFSH: Medical History Chronic pain syndrome Complex partial epilepsy with generalization SYDNEY (generalized anxiety disorder) Mixed hyperlipidemia Schizophrenia Seizure disorder Surgical History History of mandibular surgery Right mandible fracture Status post lung surgery bullectomy Family History Other Heart disease Social History Smoking and tobacco status: current every day smoker cigarettes Packs smoked per day: 1 Alcohol intake: never Lives independently: Yes Housing: House Physical Exam Const: COMMON NORMALS: healthy appearing; negative for patient oriented x3 EXAM LIMITATIONS: altered mental status HENMT: COMMON NORMALS: normocephalic and atraumatic HEAD & SCALP: normocephalic and atraumatic Eye: COMMON NORMALS: Equal, round and reactive pupils present and EOMs intact bilaterally PUPIL: Yes Equal, round and reactive pupils present Neck/C-Spine: COMMON NORMALS: full ROM and supple Chest: COMMONS NORMALS: normal inspection of the chest and normal palpation of entire chest wall Resp: COMMON NORMALS: normal respiratory effort, No retractions, No use of accessory muscles and clear to auscultation bilaterally AUSCULTATION: clear to auscultation bilaterally Cardio: COMMON NORMALS: regular rate, regular rhythm and No murmurs present (Cardio) RATE: regular rate RHYTHM: regular rhythm GI: COMMON NORMALS: Normal to inspection, nondistended, normoactive bowel sounds present, Soft to palpation, non-tender and no masses PALPATION: Yes Soft to palpation Extremity: COMMON NORMALS: normal to inspection and full ROM Neuro: COMMON NORMALS: moves all extremities and no focal motor deficits; negative for patient oriented x3 Psych: COMMON NORMALS: negative for mental status grossly normal and negative for cooperative Skin: COMMON NORMALS: no rashes or lesions noted and no wounds GENERAL SKIN EXAM: no rashes or lesions noted Course Vital Signs: Vital signs: Vital Signs Temperature 97.8 F 10/19/20 23:38 Pulse Rate 89 10/20/20 03:33 Respiratory Rate 18 10/20/20 02:16 Blood Pressure 102/57 10/20/20 03:33 Pulse Oximetry 92 10/20/20 03:33 MDM - Seizure MDM Narrative: Medical decision making narrative: Patient presents with a seizure. Patient has history of breakthrough seizures. Patient's been po stictal here I have observed him for 6 hours and he still not follow any commands. His head CT and blood work are all normal. I spoke to hospitalist will admit for observation at this time. He has no signs of meningitis. Lab Data: Labs: Lab Results 10/19/20 10/19/20 10/20/20 Range/Units 23:40 23:40 01:02 WBC 17.3 H (4.0-10.0) 10^3/ uL RBC 4.30 (4.1-5.3) 10^6/u L Hgb 13.6 (11.7-16.6) g/dL Hct 40.0 L (42.0-52.0) % MCV 93.0 (80-94) fL MCH 31.6 (28.0-34.0) pg MCHC 34.0 (30.0-36.0) g/dL RDW 12.9 (12.1-15.1) % Plt Count 354 (130-400) 10^3/c mm MPV 9.3 (7.4-10.4) fL Neut % (Auto) 83.9 % Lymph % (Auto) 7.8 % [place] % (Auto) 7.6 % Eos % (Auto) 0.0 % Baso % (Auto) 0.2 % Neut # (Auto) 14.54 H (1.8-7.7) 10^3/u L Lymph # (Auto) 1.4 (0.8-4.8) 10^3/u L [place] # (Auto) 1.3 H (0.2-0.9) 10^3/u L Eos # (Auto) 0.0 (0.0-0.8) 10^3/u L Baso # (Auto) 0.0 (0.0-0.1) 10^3/u L Nucleated RBC % (a uto) 0 % Nucleated RBCs # 0.0 /100WBC Sodium 127 L (136-145) mmol/L Potassium 5.0 (3.5-5.1) mmol/L Chloride 90 L (98-107) mmol/L Carbon Dioxide 23 (22-29) mmol/L Anion Gap 19.0 (5-19) BUN 7 (6-20) mg/dL Creatinine 0.6 L (0.7-1.2) mg/dL GFR Calculation 140.9 H (90-130) mL/min Glucose 127 H (65-115) mg/dL Calculated Osmolal ity 264 L (285-295) mOsm/k g Calcium 9.5 (8.5-10.5) mg/dL Total Bilirubin 0.2 (0.15-1.2) mg/dL AST 25 (0-40) U/L ALT 41 (0-41) U/L Alkaline Phosphata se 101 (40-130) IU/L Total Protein 7.8 (6.6-8.7) g/dL Albumin 4.3 (3.5-5.2) g/dL Globulin 3.5 (1.3-4.6) g/dL Salicylates < 0.3 L (3-10) mg/dL Urine Opiates Scre en Negative (Negative) ng/mL Acetaminophen < 5.0 L (10-30) ug/mL Ur Barbiturates Sc reen Negative (Negative) ng/mL Ur Phencyclidine S crn Negative (Negative) ng/mL Ur Amphetamines Sc reen Negative (Negative) ng/mL U Benzodiazepines Scrn Negative (Negative) ng/mL Urine Cocaine Scre en Negative (Negative) ng/mL U Marijuana (THC) Screen Negative (Negative) ng/mL Ethyl Alcohol < 10 (0-10) mg/dL Imaging Data^: CXR: Attestation: I personally reviewed and interpreted this imaging study as follows: My impression: no acute abnormality CT Head: Attestation: I personally reviewed and interpreted this imaging study as follows: Radiologist's impression: [id number] [address] [address] Scan Report Signed Patient: Tramaine Remy Unit #: [id number] : 1965 Age/Sex: 55 / M ADM Date: 10/19/20 Loc: ER Room/Bed: Attending Dr: Ordering Provider/Ordering MD: Anna Avila MD Date of Service: 10/19/20 Procedure(s): CT head wo con* [id number] Accession Number(s): [id number] Report Number: [id number] PROCEDURE INFORMATION: Exam: CT Head Without Contrast Exam date and time: 10/19/2020 12:25 AM Age: 55 years old Clinical indication: Altered mental status/memory loss; Additional info: Seizure, AMS TECHNIQUE: Imaging protocol: Computed tomography of the head without contrast. Radiation optimization: All CT scans at this facility use at least one of these dose optimization techniques: automated exposure control; mA and/or kV adjustment per patient size (includes targeted exams where dose is matched to clinical indication); or iterative reconstruction. ADDITIONAL STUDY INFORMATION: Total DLP (mGy-cm): 876.87 COMPARISON: CT head wo con* [id number] 10/12/2020 7:46 PM FINDINGS: Examination is limited by artifacts from patient motion. Evaluation of the brain demonstrates no convincing areas of abnormal density when allowing for artifacts from patient motion. There is mild cerebral cortical volume loss, unexpected for the patient's stated age. Ventricles do not appear significantly dilated. There is mildly prominent cisterna magna, a developmental variant. No definite depressed calvarial fracture is demonstrated. Visualized paranasal sinuses and mastoid air cells demonstrate no significant opacification. CT/CT head wo con* [id number] IMPRESSION: No definite acute intracranial process is demonstrated when allowing for artifacts from patient motion. There is mild cerebral cortical volume loss, unexpected for the patient's stated age. Discharge Plan Discharge Patient Disposition: Admitted As Inpatient Admit Provider: Silver Hughes Clinical Impression: Generalized seizure Condition: Stable Coding Level of Care Code ED Cyber Defense Analyst for Chg Fwd Exam Comprehensive
[2020-10-19 23:48] LABS: Basophils % 0.2 %; Hemoglobin 13.6 g/dL (11.7-16.6); Lymphocytes # 1.4 10^3/uL (0.8-4.8); Lymphocytes % 7.8 %; Mean Corpuscular Hemoglobin 31.6 pg (28.0-34.0); Mean Platelet Volume 9.3 fL (7.4-10.4); Monocytes # 1.3 10^3/uL (0.2-0.9); Monocytes % 7.6 %; Neutrophils # 14.54 10^3/uL (1.8-7.7); Neutrophils % 83.9 %; Nucleated Red Blood Cells % 0 %; Platelet Count 354 10^3/cmm (130-400); Red Cell Distribution Width 12.9 % (12.1-15.1); White Blood Count 17.3 10^3/uL (4.0-10.0)
[2020-10-19] MEDS: levETIRAcetam 750 MG in sodium chloride 0.9% (100 ml) 100 ML 430 MG IV (23:53)
[2020-10-19] MEDS: haloperidol inj 5 mg/mL INJ 1 mL IVP (23:53)
[2020-10-19] MEDS: sodium chloride 0.9% 1,000 ML 999 ML IV (23:54)
[2020-10-19 23:55] VITALS: BP 95/77; PULSE 96; RESP 17; O2SAT 91
[2020-10-20] VITALS (15 sets, daily range): BP systolic 80–115; BP diastolic 47–87; PULSE 76–114; RESP 12–18; TEMP 36.1–36.9; O2SAT 92–98
[2020-10-20 00:03] LABS: Alanine Aminotransferase 41 U/L (0-41); Albumin Level 4.3 g/dL (3.5-5.2); Alkaline Phosphatase 101 IU/L (40-130); Aspartate Amino Transferase 25 U/L (0-40); Blood Urea Nitrogen 7 mg/dL (6-20); Calcium 9.5 mg/dL (8.5-10.5); Carbon Dioxide 23 mmol/L (22-29); Chloride 90 mmol/L (98-107); Globulin 3.5 g/dL (1.3-4.6); Glomerular Filtration Rate 140.9 mL/min (90-130); Glucose 127 mg/dL (65-115); Osmolality Calculated 264 mOsm/kg (285-295); Sodium 127 mmol/L (136-145); Total Bilirubin 0.2 mg/dL (0.15-1.2); Total Protein 7.8 g/dL (6.6-8.7)
[2020-10-20 00:13] LABS: Acetaminophen < 5.0 ug/mL (10-30); Alcohol Level < 10 mg/dL (0-10); Salicylate < 0.3 mg/dL (3-10)
--- NOTE | 2020-10-20 01:34 | PC.NURSE ---
625 ml urine emptied on pt at this time.
[2020-10-20 01:39] LABS: Amphetamines Screen Urine Negative (Negative); Barbiturates Screen Urine Negative (Negative); Benzodiazepines Screen Urine Negative (Negative); Cocaine Screen Urine Negative (Negative); Opiate Screen Urine Negative (Negative); PCP Screen Urine Negative (Negative); THC Screen Urine Negative (Negative)
--- NOTE | 2020-10-20 09:28 | XR_ITS ---
WS: [id number] Portable AP upright chest, 10/20/2020, 0943 hours Clinical Data: sob Comparison: Portable chest, 10/20/2020, 2429 hours. Findings: No nodules, masses or effusions are seen. The heart is normal. The pulmonary vascularity is not increased. No pneumonia or pneumothorax is seen. Increased interstitial lung markings again are seen. There is apical pleural thickening on the right and sutures in the right apex. The aortic arch and descending aorta show tortuosity. There are lymph nodes in the right axilla. XR/XR chest 1V portable [id number] Impression: 1. No change in interstitial opacities which can represent vascular congestion or chronic interstitial pneumonia. 2. Atherosclerosis.
[2020-10-20] MEDS: enoxaparin 40 mg/0.4 mL Syringe SUBCUT (10:22)
[2020-10-20] MEDS: amoxicillin-clav 875-125 mg Tablet 1 TAB PO ×2 (10:22→17:54)
[2020-10-20] MEDS: thiamine 100 mg Tablet PO (10:23)
[2020-10-20] MEDS: levETIRAcetam 500 mg Tablet 2000 MG PO ×2 (10:23→17:54)
[2020-10-20] MEDS: folic acid 1 mg Tablet PO (10:23)
[2020-10-20] MEDS: carBAMazepine XR (12 HR) 200 mg Tablet 400 MG PO ×2 (10:24→17:56)
--- NOTE | 2020-10-20 10:57 | PC.PHAR ---
pt states he takes care of his own medications-called pts brother cele he states he was helping set up meds but only did it once states the pt is taking care of his own medications-the pt states he takes a 81mg aspirin bid-pt states he was taking a blood thinner [facility] states they have havent filled a blood thinner for the pt-medications entered are the meds from his previous entered meds and were on the pts discharge papers from 10/14/2020-pt did know that he took carbamazepine 300mg bid and aspirin bid and vitamin d bid but usure of the units-there are notes in the pharmacy comments sections of the meds
--- NOTE | 2020-10-20 11:27 | PM.HP ---
Providers/Chief Complaint Admitting Physician: Dr. jv cannon Primary Care Provider: NANCY Cramer Chief Complaint: SEIZURE History of Present Illness Tramaine Remy is a 55 year old male with a past medical history of schizophrenia, breakthroughs seizures with underlying epilepsy, nicotine dependence, chronic right mandibular plane who presents to [facility] for breakthrough seizures. Patient had 2 episodes of seizures last night, he was also combative, he received ketamine, he was postictal in the emergency room. Patient was admitted to the general medical floors, where I saw the patient, he is alert to person, place, time, does arouse, does follow commands, but does fall asleep at times, he tells me that he is here in the hospital because he had seizures last night, currently not complaining of any joint pains, no muscle aches or pains, no headache, no blurry vision, no cough, no shortness of breath, he is on room air, no chest pain, denies any drug use, denies any alcohol use. He has no complaints, is wondering when he will get to go home. Review of Systems Const: Denies: fever(s), chills, fatigue or malaise Eyes: Denies: change in vision or blurry vision ENMT: Denies: nasal congestion Card: Denies: chest pain or palpitations Resp: Denies: dyspnea, productive cough, non-productive cough or wheezing GI: Denies: abdominal pain, nausea, vomiting, hematemesis, diarrhea, constipation, hematochezia or melena : Denies: flank pain, difficulty urinating, dysuria or urinary frequency Musc: Denies: neck pain or back pain Skin/Breast: Denies: rash Neuro: Denies: headache(s), dizziness or vertigo Psych: Denies: anxiety or depression Endo: Denies: polyuria or polydipsia Medications/Allergies Home Medications Medication Instructions Recorded Confirmed Last Taken Type olanzapine 5 mg PO QPM 10/12/19 10/20/20 Unknown History folic acid 1 mg PO DAILY #30 tab 08/28/20 10/20/20 Unknown Rx multivitamin with folic acid 1 tab PO DAILY #30 tab 08/28/20 10/20/20 Unknown Rx [Thera] thiamine mononitrate (vit B1) 100 mg PO DAILY #30 tab 08/28/20 10/20/20 Unknown Rx [Vitamin B-1 (mononitrate)] albuterol sulfate 90 mcg/actuation 1 inh INHALATION Q6H PRN #6.7 gm 08/29/20 10/20/20 Unknown Rx aerosol inhaler lorazepam 0.5 mg tablet 0.5 mg PO QID PRN #90 tab 08/29/20 10/20/20 Unknown Rx divalproex 1,000 mg PO Q24H #60 tab 10/14/20 10/20/20 Unknown Rx levetiracetam 2,000 mg PO BID #240 tab 10/14/20 10/20/20 Unknown Rx Vitamin D3 1 cap PO BID@,10/20/20 10/20/20 Unknown History acetaminophen [Tylenol Extra 1,000 mg PO PRN 10/20/20 10/20/20 Unknown History Strength] aspirin [Aspir-81] 81 mg PO BID 10/20/20 10/20/20 Unknown History carbamazepine 100 mg PO BID 10/20/20 10/20/20 10/19/20 History carbamazepine 200 mg PO BID 10/20/20 10/20/20 10/19/20 History Allergies Allergy/AdvReac Type Severity Reaction Status Date / Time bismuth subsalicylate Allergy unknown Verified 08/24/20 21:04 [From Kaopectate (bismuth subsalicy)] multivitamin [From Centrum] Allergy unknown Verified 08/24/20 21:04 cholesterol medication Allergy unknown Uncoded 08/24/20 21:04 PFSH Acute PFSH: Medical History Chronic pain syndrome Complex partial epilepsy with generalization SYDNEY (generalized anxiety disorder) Mixed hyperlipidemia Schizophrenia Seizure disorder Surgical History History of mandibular surgery Right mandible fracture Status post lung surgery bullectomy Family History Other Heart disease Social History Smoking and tobacco status: current every day smoker cigarettes Packs smoked per day: 1 Alcohol intake: never Lives independently: Yes Housing: House Vitals/I&O/Wt Last Vital Signs Temp 98.5 F 10/20/20 11:10 Pulse 114 H 10/20/20 11:10 Resp 18 10/20/20 11:10 BP 82/55 10/20/20 11:10 Pulse Ox 98 10/20/20 11:10 10/19/20 10/20/20 10/20/20 22:59 06:59 14:59 Intake Total 1107.5 / 1107.5 Output Total 300 / 300 Balance 1107.5 / 1107.5 -300 / -300 Weight last 48 hrs Weight 113.398 kg Physical Exam Const: COMMON NORMALS: no acute distress and patient oriented x3 HENMT: COMMON NORMALS: normocephalic HEAD & SCALP: normocephalic Neck/C-Spine: COMMON NORMALS: no JVD Resp: COMMON NORMALS: normal respiratory effort, No retractions, No use of accessory muscles and clear to auscultation bilaterally AUSCULTATION: wheezes Cardio: COMMON NORMALS: no JVD, regular rate, regular rhythm, S1 normal heart sound present and S2 normal heart sound present RATE: regular rate RHYTHM: regular rhythm HEART SOUNDS: S1 normal heart sound present and S2 normal heart sound present GI: COMMON NORMALS: Normal to inspection, nondistended, normoactive bowel sounds present, Soft to palpation, non-tender, No hepatosplenomegaly present, no masses and no bruits PALPATION: Yes Soft to palpation and Yes No hepatosplenomegaly present Extremity: COMMON NORMALS: capillary refill normal, no clubbing, cyanosis or edema, no calf tenderness and no pedal edema Neuro: COMMON NORMALS: patient oriented x3 Psych: COMMON NORMALS: mental status grossly normal Data : 10/19/20 23:40 10/19/20 23:40 A&P Assessment and plan (1) Breakthrough seizure: -CT of the head was unremarkable for acute CVA -Acute on chronic hyponatremia, likely secondary to carbamazepine, but will repeat CMP -CBC does show a white blood cell count of 17.2, likely secondary to aspiration event, as he is wheezing on exam, but is on room air, afebrile -I have spoken to Dr. Gilman, she advised to increase carbamazepine to 400 mg twice daily -Continue Depakote at 1000 mg every 24 hours -Continue Keppra 2000 mg twice daily -Follow-up with neurology as outpatient -Aspiration precautions, neurochecks -Continue to clinically monitor, possible discharge later on this evening Status: Acute (2) Wheezing: -Likely secondary to aspiration event, chest x-ray did not show focal pneumonia I have started him on Augmentin Status: Acute (3) Low blood pressure: -Likely secondary to ketamine, will continue to monitor, received fluids, -Receiving IV fluids Status: Acute Additional A&P Information Full code Lovenox for DVT prophylaxis Attestations Medical Necessity Statement*: Patient requires hospitalization, outpatient with observation, for breakthrough seizures, wheezing concern for aspiration pneumonia, low blood pressures Coding Level of Care Code Acute Outdoor Adventure Leader for [facility] Fwd Diagnoses Breakthrough seizure G40.919 Wheezing R06.2 Low blood pressure I95.9
[2020-10-20] MEDS: divalproex ER 500 mg Tablet (24H) 1000 MG PO (11:48)
[2020-10-20] MEDS: sodium chloride 0.9% 1,000 ML 125 ML IV ×2 (12:34→20:10)
--- NOTE | 2020-10-20 12:42 | PC.CHAP ---
Pastoral Care Encounter/Spiritual Assessment Type of Contact [] Declined spout positioner visit [] Patient/Family/Request visit [] Outpatient visit [] Follow-up visit [] Physician referral [] Code/Alert [xx] Routine visit [] Staff referral [] Actively dying [] Patient sleeping [] Family support [] [] Out of room [] Palliative care [] [] Receiving care in room [] Pre-surgical visit [] Trauma [] Long length of stay [] ICU visit [] Other: Relational/Emotional Strength [xx] Patient feels connected with others/family/visitors/staff [] Distress [] Loneliness/isolation [] Abandonment Spirituality of Patient [] Person of Edel [] Attends Buddhist of their Edel [xx] Believes in Prayer [] Reads Bible or Judaism materials [] There are Spiritual issues to be addressed Tip Puncher Interventions [xx] Prayer [xx] Active listening [xx] Non-anxious presence [] Spiritual/emotional support [] Crisis/trauma care [] Spiritual counseling [] Bereavement support [] Provided bereavement packet [] Provided Bible/devotional materials [] Provided toy/stuffed animal, coloring book to patient or family member [] Provided Communion [] Anointing/[place] [] Salvation [] Completed spiritual assessment [] Other: Impact on Illness or Injury [] Angry [] Fearful [] Anxious [] Often cries [] Exhaustion [] Unable to work [] Unable to attend religious [] Unable to walk/stand [] Unable to read [] Unable to drive [] Unable to eat/drink [] Unable to sleep [] Unable to be with family [] Patient intubated [] Other: Summary Pt being discharged later today. Pt asked spout positioner to ask nurse about missing med he takes. Nurse explained he needs refill of his Rx and it is not missing. Time spent with patient 5 minutes
[2020-10-20 16:38] LABS: Basophils % 0.4 %; Eosinophils % 0.2 %; Hematocrit 36.8 % (42.0-52.0); Lymphocytes # 1.9 10^3/uL (0.8-4.8); Mean Corpuscular HGB Conc 32.6 g/dL (30.0-36.0); Mean Corpuscular Hemoglobin 32.3 pg (28.0-34.0); Mean Corpuscular Volume 98.9 fL (80-94); Mean Platelet Volume 9.4 fL (7.4-10.4); Monocytes # 0.8 10^3/uL (0.2-0.9); Monocytes % 15.7 %; Neutrophils % 47.3 %; Nucleated Red Blood Cells % 0 %; Platelet Count 308 10^3/cmm (130-400); Red Blood Count 3.72 10^6/uL (4.1-5.3); Red Cell Distribution Width 13.2 % (12.1-15.1); White Blood Count 5.3 10^3/uL (4.0-10.0)
[2020-10-20 17:02] LABS: Lactate (Lactic Acid level) 1.3 mmol/L (0.5-2.2)
[2020-10-20 17:12] LABS: Procalcitonin 0.04 ng/mL (0-0.5)
[2020-10-20 17:23] LABS: Alanine Aminotransferase 37 U/L (0-41); Albumin Level 3.7 g/dL (3.5-5.2); Alkaline Phosphatase 89 IU/L (40-130); Anion Gap 13.2 (5-19); Aspartate Amino Transferase 26 U/L (0-40); Blood Urea Nitrogen 9 mg/dL (6-20); C Reactive Protein 21.4 mg/L (0.0-4.9); Carbon Dioxide 27 mmol/L (22-29); Chloride 98 mmol/L (98-107); Glomerular Filtration Rate 140.9 mL/min (90-130); Glucose 115 mg/dL (65-115); Osmolality Calculated 278 mOsm/kg (285-295); Potassium 4.2 mmol/L (3.5-5.1); Sodium 134 mmol/L (136-145); Total Bilirubin 0.2 mg/dL (0.15-1.2); Total Protein 6.7 g/dL (6.6-8.7)
[2020-10-20] MEDS: famotidine 20 mg Tablet PO (17:55)
[2020-10-20] MEDS: OLANZapine 5 mg TABLET PO (17:55)
--- NOTE | 2020-10-20 19:18 | PC.NURSE ---
Patient has been cooperative this shift. No seizure activity noted this shift.
--- NOTE | 2020-10-20 23:00 | PC.NURSE ---
PT SISTER CALLED FOR AN UPDATE. SISTER STATES THAT SHE KNOW THAT HE IS HAVING A SEIZURE. THIS NURSE ASKED WHY THEY SAY THAT AND SISTER RESPONDED THAT HE HAS WHAT THEY DIAGNOSE FUNCTIONAL SEIZURE . THAT HE CAN HAVE ONE ALL DAY LONG AND SMOKE A CIGARETTE OR WORK ON THINGS. THIS NURSE THANKED FAMILY FOR THE UPDATE OF INFORMATION AND THAT I WAS GOING TO CHECK ON THE PT.
[2020-10-21] VITALS (9 sets, daily range): BP systolic 94–138; BP diastolic 64–81; PULSE 71–91; RESP 18; TEMP 36.6–36.8; O2SAT 92–98
[2020-10-21] MEDS: sodium chloride 0.9% 1,000 ML 125 ML IV (04:13)
[2020-10-21 04:49] LABS: Basophils % 0.6 %; Eosinophils % 0.4 %; Hematocrit 36.8 % (42.0-52.0); Hemoglobin 12.1 g/dL (11.7-16.6); Lymphocytes # 2.8 10^3/uL (0.8-4.8); Lymphocytes % 51.5 %; Mean Corpuscular HGB Conc 32.9 g/dL (30.0-36.0); Mean Corpuscular Hemoglobin 31.4 pg (28.0-34.0); Mean Corpuscular Volume 95.6 fL (80-94); Mean Platelet Volume 9.5 fL (7.4-10.4); Monocytes # 0.7 10^3/uL (0.2-0.9); Monocytes % 12.9 %; Neutrophils # 1.88 10^3/uL (1.8-7.7); Neutrophils % 34.4 %; Nucleated Red Blood Cells % 0 %; Platelet Count 304 10^3/cmm (130-400); Red Blood Count 3.85 10^6/uL (4.1-5.3); Red Cell Distribution Width 13.3 % (12.1-15.1); White Blood Count 5.4 10^3/uL (4.0-10.0)
[2020-10-21 05:14] LABS: Alanine Aminotransferase 33 U/L (0-41); Albumin Level 3.7 g/dL (3.5-5.2); Alkaline Phosphatase 84 IU/L (40-130); Anion Gap 11.3 (5-19); Aspartate Amino Transferase 24 U/L (0-40); Blood Urea Nitrogen 7 mg/dL (6-20); Calcium 8.8 mg/dL (8.5-10.5); Carbon Dioxide 28 mmol/L (22-29); Chloride 103 mmol/L (98-107); Globulin 2.7 g/dL (1.3-4.6); Glomerular Filtration Rate 140.9 mL/min (90-130); Glucose 82 mg/dL (65-115); Osmolality Calculated 283 mOsm/kg (285-295); Phosphorus 3.3 mg/dL (2.5-4.5); Potassium 4.3 mmol/L (3.5-5.1); Sodium 138 mmol/L (136-145); Total Bilirubin 0.2 mg/dL (0.15-1.2); Total Protein 6.4 g/dL (6.6-8.7)
--- NOTE | 2020-10-21 05:44 | PC.NURSE ---
PT IS CONFUSED AND STATES THAT THEY DON'T KNOW WHERE THEY ARE. PT IS TRYING TO GET AGGRESSIVE WITH STAFF. PT WAS UPSET THAT THEY WERE IN THE HOSPITAL AND WANTED HIS BROTHER TO COME AND GET HIM. SITUATION WAS DEESCALATED. WILL CONTINUE TO MONITOR.
[2020-10-21] MEDS: levETIRAcetam 500 mg Tablet 2000 MG PO (08:50)
[2020-10-21] MEDS: cholecalciferol (vitamin D3) 1,000 unit Tablet 4000 UNIT PO (08:50)
[2020-10-21] MEDS: multivitamin therapeutic Tablet 1 TAB PO (08:51)
[2020-10-21] MEDS: amoxicillin-clav 875-125 mg Tablet 1 TAB PO (08:51)
[2020-10-21] MEDS: enoxaparin 40 mg/0.4 mL Syringe SUBCUT (08:51)
[2020-10-21] MEDS: thiamine 100 mg Tablet PO (08:51)
[2020-10-21] MEDS: folic acid 1 mg Tablet PO (08:51)
[2020-10-21] MEDS: famotidine 20 mg Tablet PO (08:51)
[2020-10-21] MEDS: carBAMazepine XR (12 HR) 200 mg Tablet 400 MG PO (08:57)
[2020-10-21] MEDS: divalproex ER 500 mg Tablet (24H) 1000 MG PO (08:57)
--- NOTE | 2020-10-21 12:29 | P.DS_ITS ---
Discharge Providers Date of Admission: 10/20/20 05:05 Date of Discharge: October 21, 2020 Attending Provider at Admission: Silver Hughes Attending Provider at Discharge: Jv Cannon MD Primary Care Provider: NANCY Cramer Diagnoses at Discharge Discharge Diagnosis (1) Breakthrough seizure: Status: Acute (2) Wheezing: Status: Acute (3) Low blood pressure: Status: Acute Reason for Visit Reason for Visit: SEIZURE Hospital Course Hospital Course Tramaine Remy is a 55 year old male with a past medical history of schizophrenia, breakthroughs seizures with underlying epilepsy, nicotine dependence, chronic right mandibular plane who presents to [facility] for breakthrough seizures. Patient was admitted to [facility] for epilepsy with breakthrough seizures: -CT of the head was unremarkable for acute CVA -Acute on chronic hyponatremia, likely secondary to carbamazepine, repeat sodium was within normal limits -CBC does show a white blood cell count of 17.2, likely secondary to aspiration event, as he is wheezing on exam, but is on room air, afebrile, discharged on Augmentin -I have spoken to Dr. Gilman, she advised to increase carbamazepine to 400 mg twice daily, follow-up with Dr. Gilman in 1 to 2 weeks -Continue Depakote at 1000 mg every 24 hours -Continue Keppra 2000 mg twice daily -Follow-up with neurology as outpatient -patient did well as inpatient, no recurrent seizure-like episodes Patient was advised to monitor for fevers, chills, if so go to the emergency room. Monitor for breakthrough seizures. Patient was advised to not drive for the next 3 to 6 months, as he has had breakthrough seizures. Physical Exam Const: COMMON NORMALS: no acute distress and patient oriented x3 HENMT: COMMON NORMALS: normocephalic HEAD & SCALP: normocephalic Neck/C-Spine: COMMON NORMALS: no JVD Resp: COMMON NORMALS: normal respiratory effort, No retractions, No use of accessory muscles and clear to auscultation bilaterally AUSCULTATION: clear to auscultation bilaterally Cardio: COMMON NORMALS: no JVD, regular rate, regular rhythm, S1 normal heart sound present and S2 normal heart sound present RATE: regular rate RHYTHM: regular rhythm HEART SOUNDS: S1 normal heart sound present and S2 normal heart sound present GI: COMMON NORMALS: Normal to inspection, nondistended, normoactive bowel sounds present, Soft to palpation, non-tender, No hepatosplenomegaly present, no masses and no bruits PALPATION: Yes Soft to palpation and Yes No hepatosplenomegaly present Extremity: COMMON NORMALS: capillary refill normal, no clubbing, cyanosis or edema, no calf tenderness and no pedal edema Neuro: COMMON NORMALS: patient oriented x3 Psych: COMMON NORMALS: mental status grossly normal Discharge Data Data Completed and Pending: Completed Studies During Hospitalization Category Date Time Status CT head wo con* [id number] Urgent Cat Scan 10/19/20 23:37 Completed XR chest 1V nahum ble [id number] Stat Exams 10/20/20 09:28 Completed XR chest 1V nahum ble [id number] Urgent Exams 10/19/20 23:37 Completed Pending at discharge Category Date Time Status Blood Culture Sta t Lab 10/20/20 16:18 Results Complete Blood Co unt w/Auto AM LABS Lab 10/22/20 04:00 Ordered Complete Blood Co unt w/Auto AM LABS Lab 10/23/20 04:00 Ordered Comprehensive Met abolic Panel AM LA BS Lab 10/22/20 04:00 Ordered Comprehensive Met abolic Panel AM LA BS Lab 10/23/20 04:00 Ordered Magnesium AM LABS Lab 10/22/20 04:00 Ordered Magnesium AM LABS Lab 10/23/20 04:00 Ordered Phosphorus AM LAB S Lab 10/22/20 04:00 Ordered Phosphorus AM LAB S Lab 10/23/20 04:00 Ordered Sputum Culture an d Gram Stain Stat Lab 10/20/20 11:39 Uncollected Urinalysis Routin e Lab 10/20/20 11:38 Uncollected Labs from last 24 hours 10/21/20 10/21/20 10/20/20 04:20 04:20 16:14 WBC 5.4 RBC 3.85 L Hgb 12.1 Hct 36.8 L MCV 95.6 H MCH 31.4 MCHC 32.9 RDW 13.3 Plt Count 304 MPV 9.5 Neut % (Auto) 34.4 Lymph % (Auto) 51.5 [place] % (Auto) 12.9 Eos % (Auto) 0.4 Baso % (Auto) 0.6 Neut # (Auto) 1.88 Lymph # (Auto) 2.8 [place] # (Auto) 0.7 Eos # (Auto) 0.0 Baso # (Auto) 0.0 Nucleated RBC % (a uto) 0 Nucleated RBCs # 0.0 Sodium 138 Potassium 4.3 Chloride 103 Carbon Dioxide 28 Anion Gap 11.3 BUN 7 Creatinine 0.6 L GFR Calculation 140.9 H Glucose 82 Calculated Osmolal ity 283 L Lactate 1.3 Calcium 8.8 Phosphorus 3.3 Magnesium 2.0 Total Bilirubin 0.2 AST 24 ALT 33 Alkaline Phosphata se 84 C-Reactive Protein Total Protein 6.4 L Albumin 3.7 Globulin 2.7 Procalcitonin 10/20/20 10/20/20 16:14 16:14 WBC 5.3 RBC 3.72 L Hgb 12.0 Hct 36.8 L MCV 98.9 H D MCH 32.3 MCHC 32.6 RDW 13.2 Plt Count 308 MPV 9.4 Neut % (Auto) 47.3 Lymph % (Auto) 36.0 [place] % (Auto) 15.7 Eos % (Auto) 0.2 Baso % (Auto) 0.4 Neut # (Auto) 2.50 Lymph # (Auto) 1.9 [place] # (Auto) 0.8 Eos # (Auto) 0.0 Baso # (Auto) 0.0 Nucleated RBC % (a uto) 0 Nucleated RBCs # 0.0 Sodium 134 L Potassium 4.2 Chloride 98 Carbon Dioxide 27 Anion Gap 13.2 BUN 9 Creatinine 0.6 L GFR Calculation 140.9 H Glucose 115 Calculated Osmolal ity 278 L Lactate Calcium 9.0 Phosphorus Magnesium Total Bilirubin 0.2 AST 26 ALT 37 Alkaline Phosphata se 89 C-Reactive Protein 21.4 H Total Protein 6.7 Albumin 3.7 Globulin 3.0 Procalcitonin 0.04 Vitals: Last Vital Signs Temp 97.9 F 10/21/20 11:49 Pulse 75 10/21/20 11:49 Resp 18 10/21/20 11:49 BP 94/64 10/21/20 11:49 Pulse Ox 97 10/21/20 11:49 Discharge Plan Discharge Patient Disposition: Home Condition: Stable Prescriptions: New carbamazepine 200 mg Tablet Extended Release 12 Hr 400 mg PO BID 30 Days Qty: 120 RF: 0 cholecalciferol (vitamin D3) 25 mcg (1,000 unit) Tablet 4,000 unit PO DAILY 30 Days Qty: 30 RF: 0 amoxicillin-pot clavulanate 875-125 mg Tablet 1 tab PO BID 7 Days Qty: 14 RF: 0 Continued albuterol sulfate 90 mcg/actuation HFA aerosol inhaler 1 inh INHALATION Q6H PRN (Reason: shortness of breath or wheezing) Qty: 6.7 RF: 2 lorazepam 0.5 mg tablet 0.5 mg PO QID PRN (Reason: Anxiety) Qty: 90 RF: 2 olanzapine 5 mg Tablet 5 mg PO QPM RF: 0 levetiracetam 500 mg tablet 2,000 mg PO BID Qty: 240 RF: 11 divalproex 500 mg Tablet Extended Release 24 Hr 1,000 mg PO Q24H Qty: 60 RF: 0 folic acid 1 mg Tablet 1 mg PO DAILY Qty: 30 RF: 0 thiamine mononitrate (vit B1) [Vitamin B-1 (mononitrate)] 100 mg Tablet 100 mg PO DAILY Qty: 30 RF: 0 multivitamin with folic acid [Thera] 400 mcg Tablet 1 tab PO DAILY Qty: 30 RF: 0 Tylenol Extra Strength 500 mg Tablet 1,000 mg PO PRN RF: 0 Aspir-81 81 mg Tablet,Delayed Release (Dr/Ec) 81 mg PO BID RF: 0 Vitamin D3 1 cap PO BID@06,17 RF: 0 Discontinued carbamazepine 100 mg tablet extended release 12 hr 100 mg PO BID RF: 0 carbamazepine 200 mg tablet extended release 12 hr 200 mg PO BID RF: 0 Discharge Orders: Discharge Order (Routine); Ordered 10/21/20 Ordered By: Jv Cannon Referrals: Kady Gilman MD [Physician] - 2 weeks Discharge Diet: Cardiac Discharge Activity: Resume usual activity Patient Instructions: Epilepsy (DC) Activity Restrictions/Additional Instructions: -I have increased her carbamazepine to 400 mg twice daily -Please follow-up with Dr. Gilman in 2 weeks -Because you have breakthrough seizures, according to [place] law, you cannot drive for the next 3 to 6 months -Please take Augmentin for aspiration pneumonia -If your fevers, chills, nausea, vomiting go to emergency room Discharge Attestations Time Spent in Discharge Care*: greater than 30 min Quality Metrics Clinical Quality Measures During this hospital stay, did patient experience: None Coding Level of Care Code Acute Furniture Associate for g Fwd Diagnoses Breakthrough seizure G40.919 Wheezing R06.2 Low blood pressure I95.9
== END 2020-10-21 16:05 | disposition home or self-care (01) ==
LOC: ER 23:39 → MEDSURG 10-20 05:17
PROVIDERS: Admitting Provider Internal Medicine; Emergency Provider Emergency Medicine; PCP Nurse Practitioner Family; Visit Provider Family Medicine
DX: G40.919 Epilepsy, unspecified, intractable, without status epilepticus (principal); R06.2 Wheezing; I95.9 Hypotension, unspecified; F17.210 Nicotine dependence, cigarettes, uncomplicated; Z79.82 Long term (current) use of aspirin; Z79.891 Long term (current) use of opiate analgesic; G89.4 Chronic pain syndrome; F41.9 Anxiety disorder, unspecified; E78.2 Mixed hyperlipidemia; F20.9 Schizophrenia, unspecified
CPT/HCPCS: 12345; 36415; 70450; 71045; 80053; 80306; 80307; 83605; 83735; 84100; 84145; 85025; 86140; 87040; 93005; 94664; 96361; 96372; 96374; 96375; 99284; 99285; G0378; J1630; J1650; J1953; J2060; J7030

== ENCOUNTER 2020-10-21 20:05 | Inpatient (IN) | payer MEDICAID, SELFPAY ==
[2020-10-21 20:06] VITALS: BP 175/109; PULSE 88; RESP 16; TEMP 36.8; O2SAT 100; BMI 25.7
--- NOTE | 2020-10-21 20:23 | XRR_ITS ---
PROCEDURE INFORMATION: Exam: XR Chest, 1 View Exam date and time: 10/21/2020 8:26 PM Age: 55 years old Clinical indication: Other: Seizure TECHNIQUE: Imaging protocol: XR of the chest Views: 1 view. Total images: 1 COMPARISON: 1. CR XR chest 1V portable [id number] 10/20/2020 9:42 AM 2. CR - XR chest 1V portable [id number] 10/20/2020 12:27:17 AM 3. CR - XR chest 1V portable [id number] 10/12/2020 7:10:05 PM FINDINGS: Lungs: COPD/chronic bronchitis. No visible significant overall change in the appearance of the bilateral reticulonodular interstitial lung disease. Pleural space: Unremarkable. No pleural effusion. No pneumothorax. Heart/Mediastinum: Cardiac structures and configuration stable with arteriosclerosis. Bones/joints: Mild scoliosis of the spine. XR/XR chest 1V portable [id number] IMPRESSION: No interval change cardiopulmonary status radiographically.
[2020-10-21 20:25] VITALS: BP 176/103; PULSE 78; RESP 15; O2SAT 93
--- NOTE | 2020-10-21 20:25 | ECG_ITS ---
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 Measurements Intervals [place] Rate: 79 P: 63 ND: 181 QRS: 78 QRSD: 94 T: 66 QT: 361 QTc: 415 Interpretive Statements SINUS RHYTHM Compared to ECG 10/20/2020 05:27:23 No significant changes Electronically Signed On 10-23-2020 17:27:38 RECREATION ADVISER by Darby Garsia M.D. [id number]
--- NOTE | 2020-10-21 20:38 | CTR_ITS ---
PROCEDURE INFORMATION: Exam: CT Head Without Contrast Exam date and time: 10/21/2020 8:39 PM Age: 55 years old Clinical indication: Altered mental status/memory loss; Confusion or disorientation; Prior surgery; Surgery date: 6+ months; Surgery type: Mandible; Patient HX: AMS w HX of complex partial epilelsy; Additional info: Altered. Post ictal TECHNIQUE: Imaging protocol: Computed tomography of the head without contrast. Total images: 213 Radiation optimization: All CT scans at this facility use at least one of these dose optimization techniques: automated exposure control; mA and/or kV adjustment per patient size (includes targeted exams where dose is matched to clinical indication); or iterative reconstruction. COMPARISON: CT head wo con* [id number] 10/20/2020 12:19 AM RADIATION DOSE METRICS: Total DLP (mGy-cm): 710.52 FINDINGS: Brain: Normal. No hemorrhage. Unremarkable white matter. No mass effect. Cerebral ventricles: No ventriculomegaly. Bones/joints: Unremarkable. No acute fracture. Paranasal sinuses: Visualized sinuses are unremarkable. No fluid levels. Mastoid air cells: Visualized mastoid air cells are well aerated. Soft tissues: Unremarkable. CT/CT head wo con* [id number] IMPRESSION: No acute intracranial abnormality. Radiation Dose CTDIVOL = (mGy): DLP = 710.52 (mGy-cm)
--- NOTE | 2020-10-21 20:42 | W.ED.PSYCH ---
HPI - Psych General: Chief Complaint: Psychiatric Symptoms Stated Complaint: SEIZURE Time Seen by Provider: 10/21/20 20:10 History of Present Illness: HPI Narrative: The patient is a 55-year-old male who comes to the ER after he was found in his car not responding appropriately the thought processes he probably had a seizure and was postictal at that time. He began to get combative with EMS and was given ketamine intramuscular and in the ambulance on the way to the hospital he laid his head back and was given 2 mg benzodiazepine for possible seizure. On arrival to the ER he is confused and in his usual state possibly postictal. He is not responding to questions appropriately. History of same: Yes Review of Systems General: Reports: ROS unobtainable due to medical condition PFSH ED PFSH: Medical History Chronic pain syndrome Complex partial epilepsy with generalization SYDNEY (generalized anxiety disorder) Mixed hyperlipidemia Schizophrenia Seizure disorder Surgical History History of mandibular surgery Right mandible fracture Status post lung surgery bullectomy Family History Other Heart disease Social History Smoking and tobacco status: current every day smoker cigarettes Packs smoked per day: 1 Alcohol intake: never Lives independently: Yes Housing: House Physical Exam Const: COMMON NORMALS: no acute distress, average body habitus, patient oriented x3, no limitations, healthy appearing, alert and well nourished GENERAL APPEARANCE: cooperative, comfortable, well kempt and well developed ORIENTATION/CONSCIOUSNESS: Yes awake, Yes oriented to person, Yes oriented to place and Yes oriented to time HENMT: COMMON NORMALS: normocephalic, external ears normal and Normal external nose present HEAD & SCALP: normal to inspection and normocephalic NOSE: Normal external nose present EXTERNAL EAR: Yes external ears normal MOUTH: Normal oral and palatal mucosa present THROAT: posterior oropharynx normal Eye: COMMON NORMALS: Equal, round and reactive pupils present and EOMs intact bilaterally GENERAL EYE: appearance normal, both eyes and all related structures PUPIL: Yes Equal, round and reactive pupils present Neck/C-Spine: COMMON NORMALS: full ROM, no lymphadenopathy, no meningeal signs and no JVD GENERAL: Yes normal visual inspection Lymph: LYMPHATIC: no lymphadenopathy noted Chest: COMMONS NORMALS: normal inspection of the chest and normal palpation of entire chest wall Resp: COMMON NORMALS: normal respiratory effort, No retractions, No use of accessory muscles, clear to auscultation bilaterally and percussion normal EFFORT & INSPECTION: Yes able to speak in complete sentences AUSCULTATION: clear to auscultation bilaterally PERCUSSION: percussion normal Cardio: COMMON NORMALS: no JVD, regular rate, regular rhythm, S1 normal heart sound present, S2 normal heart sound present and Peripheral pulses 2+ throughout RATE: regular rate RHYTHM: regular rhythm HEART SOUNDS: S1 normal heart sound present and S2 normal heart sound present PERIPHERAL PULSES: Peripheral pulses 2+ throughout GI: COMMON NORMALS: Normal to inspection, nondistended, normoactive bowel sounds present, Soft to palpation, non-tender and no masses INSPECTION: Yes normal to inspection PALPATION: Yes Soft to palpation : COMMON NORMALS: Yes no CVA tenderness BLADDER/KIDNEY EXAM: Yes no CVA tenderness Back/Pelvis: COMMON NORMALS: no CVA tenderness, thoracic and lumbar spine normal to inspection, no thoracic nor lumbar tenderness and thoraco-lumbar ROM normal Extremity: COMMON NORMALS: normal to inspection, full ROM, capillary refill normal, no joint enlargement and no pedal edema GENERAL: Yes normal exam except as noted Neuro: COMMON NORMALS: patient oriented x3, CN's II-XII intact bilaterally, moves all extremities, no focal motor deficits, no sensory deficits noted and gait normal SENSORIUM/ORIENTATION: Yes alert, Yes oriented to person, Yes oriented to place and Yes oriented to time MENINGEAL SIGNS: Yes no meningeal signs Psych: COMMON NORMALS: mental status grossly normal, Normal thought process present, cooperative, normal affect and speech normal APPEARANCE: Yes well kempt ATTITUDE: Yes calm SPEECH: Yes normal speech THOUGHT PROCESS: Normal thought process present Skin: NARRATIVE SKIN EXAM: abrasions to forehead and scalp. Extremities with abrasions also. MDM - Psych MDM Narrative: Medical decision making narrative: The patient has been calm and his room since the ketamine wore off. Testing is normal. Most likely the communication signals intelligence were called and he was immediately given ketamine for his history of being agitated. He is calling requesting discharge. He is taking his seizure medications and his levels are therapeutic. Stable for discharge and his brother can pick him up. Recommended continuing to take his medications as directed and follow-up with primary care in a few days. ER with worsening symptoms continue to not drive because of seizure disorder until released by neurology Lab Data: Labs: Lab Results 10/21/20 10/21/20 10/21/20 Range/Units 20:50 20:50 20:50 WBC 5.2 (4.0-10.0) 10^3/ uL RBC 3.62 L (4.1-5.3) 10^6/u L Hgb 11.5 L (11.7-16.6) g/dL Hct 35.6 L (42.0-52.0) % MCV 98.3 H (80-94) fL MCH 31.8 (28.0-34.0) pg MCHC 32.3 (30.0-36.0) g/dL RDW 13.2 (12.1-15.1) % Plt Count 310 (130-400) 10^3/c mm MPV 9.2 (7.4-10.4) fL Neut % (Auto) 58.1 % Lymph % (Auto) 29.4 % Nicollet % (Auto) 11.7 % Eos % (Auto) 0.2 % Baso % (Auto) 0.6 % Neut # (Auto) 3.04 (1.8-7.7) 10^3/u L Lymph # (Auto) 1.5 (0.8-4.8) 10^3/u L Nicollet # (Auto) 0.6 (0.2-0.9) 10^3/u L Eos # (Auto) 0.0 (0.0-0.8) 10^3/u L Baso # (Auto) 0.0 (0.0-0.1) 10^3/u L Nucleated RBC % (a uto) 0 % Nucleated RBCs # 0.0 /100WBC Specimen Type Sample Site ABG pH (7.35-7.45) ABG pCO2 (35-45) mmHg ABG pO2 (80.0-100.0) mmH g ABG HCO3 (22-26) mmol/L ABG O2 Saturation ABG Base Excess (-2.0-2.0) mmol/ L Tam Test A-a O2 Gradient (5-10) mmHg Hematocrit (42-52) % Hgb O2 Saturation (95-100) % Carboxyhemoglobin (0.4-20.1) %THgb Methemoglobin (0.4-1.5) % Total Hemoglobin (14-18) g/dL Ionized Calcium (1.1-1.4) mmol/L O2 Delivery Device O2 Liters/Min % Octave Board Assembler ID Sodium 136 (136-145) mmol/L Potassium 4.1 (3.5-5.1) mmol/L Chloride 102 (98-107) mmol/L Carbon Dioxide 25 (22-29) mmol/L Anion Gap 13.1 (5-19) BUN 8 (6-20) mg/dL Creatinine 0.5 L (0.7-1.2) mg/dL GFR Calculation 173.9 H (90-130) mL/min Glucose 99 (65-115) mg/dL Calculated Osmolal ity 280 L (285-295) mOsm/k g Lactate 1.0 (0.5-2.2) mmol/L Calcium 8.3 L (8.5-10.5) mg/dL Total Bilirubin 0.2 (0.15-1.2) mg/dL AST 24 (0-40) U/L ALT 37 (0-41) U/L Alkaline Phosphata se 78 (40-130) IU/L Creatine Kinase 178 (39-308) U/L Troponin T Baselin e (0-15) ng/L Total Protein 6.6 (6.6-8.7) g/dL Albumin 3.6 (3.5-5.2) g/dL Globulin 3.0 (1.3-4.6) g/dL Urine Color (Yellow) Urine Appearance (CLEAR) Urine pH (5-7) Ur Specific Gravit y (1.005-1.030) Urine Protein (Negative) Urine Glucose (UA) (Normal) Urine Ketones (Negative) Urine Blood (Negative) Urine Nitrate (Negative) Urine Bilirubin (Negative) Urine Urobilinogen (Negative) mg/dL Ur Leukocyte Tisha ase (Negative) Urine Opiates Scre en (Negative) ng/mL Ur Barbiturates Sc reen (Negative) ng/mL Valproic Acid (50-100) ug/mL Carbamazepine (4.0-12.0) ug/mL Ur Phencyclidine S crn (Negative) ng/mL Ur Amphetamines Sc reen (Negative) ng/mL U Benzodiazepines Scrn (Negative) ng/mL Urine Cocaine Scre en (Negative) ng/mL U Marijuana (THC) Screen (Negative) ng/mL Ethyl Alcohol < 10 (0-10) mg/dL 10/21/20 10/21/20 10/21/20 Range/Units 20:50 20:50 21:00 WBC (4.0-10.0) 10^3/ uL RBC (4.1-5.3) 10^6/u L Hgb (11.7-16.6) g/dL Hct (42.0-52.0) % MCV (80-94) fL MCH (28.0-34.0) pg MCHC (30.0-36.0) g/dL RDW (12.1-15.1) % Plt Count (130-400) 10^3/c mm MPV (7.4-10.4) fL Neut % (Auto) % Lymph % (Auto) % Nicollet % (Auto) % Eos % (Auto) % Baso % (Auto) % Neut # (Auto) (1.8-7.7) 10^3/u L Lymph # (Auto) (0.8-4.8) 10^3/u L Nicollet # (Auto) (0.2-0.9) 10^3/u L Eos # (Auto) (0.0-0.8) 10^3/u L Baso # (Auto) (0.0-0.1) 10^3/u L Nucleated RBC % (a uto) % Nucleated RBCs # /100WBC Specimen Type Arterial Sample Site Radial, left ABG pH 7.40 (7.35-7.45) ABG pCO2 43.8 (35-45) mmHg ABG pO2 74.4 L (80.0-100.0) mmH g ABG HCO3 27.2 H (22-26) mmol/L ABG O2 Saturation 95.4 ABG Base Excess 2.0 (-2.0-2.0) mmol/ L Tam Test Pos A-a O2 Gradient 3.0 L (5-10) mmHg Hematocrit 40.4 L (42-52) % Hgb O2 Saturation 93.3 L (95-100) % Carboxyhemoglobin 1.5 (0.4-20.1) %THgb Methemoglobin 0.7 (0.4-1.5) % Total Hemoglobin 13.2 L (14-18) g/dL Ionized Calcium 1.2 (1.1-1.4) mmol/L O2 Delivery Device Nc O2 Liters/Min 1.0 % Octave Board Assembler ID [email or web address] Sodium 139.0 (136-145) mmol/L Potassium 4.2 (3.5-5.1) mmol/L Chloride (98-107) mmol/L Carbon Dioxide (22-29) mmol/L Anion Gap (5-19) BUN (6-20) mg/dL Creatinine (0.7-1.2) mg/dL GFR Calculation (90-130) mL/min Glucose 109.0 (65-115) mg/dL Calculated Osmolal ity (285-295) mOsm/k g Lactate (0.5-2.2) mmol/L Calcium (8.5-10.5) mg/dL Total Bilirubin (0.15-1.2) mg/dL AST (0-40) U/L ALT (0-41) U/L Alkaline Phosphata se (40-130) IU/L Creatine Kinase (39-308) U/L Troponin T Baselin e 9 (0-15) ng/L Total Protein (6.6-8.7) g/dL Albumin (3.5-5.2) g/dL Globulin (1.3-4.6) g/dL Urine Color (Yellow) Urine Appearance (CLEAR) Urine pH (5-7) Ur Specific Gravit y (1.005-1.030) Urine Protein (Negative) Urine Glucose (UA) (Normal) Urine Ketones (Negative) Urine Blood (Negative) Urine Nitrate (Negative) Urine Bilirubin (Negative) Urine Urobilinogen (Negative) mg/dL Ur Leukocyte Tisha ase (Negative) Urine Opiates Scre en (Negative) ng/mL Ur Barbiturates Sc reen (Negative) ng/mL Valproic Acid 50.8 (50-100) ug/mL Carbamazepine 8.0 (4.0-12.0) ug/mL Ur Phencyclidine S crn (Negative) ng/mL Ur Amphetamines Sc reen (Negative) ng/mL U Benzodiazepines Scrn (Negative) ng/mL Urine Cocaine Scre en (Negative) ng/mL U Marijuana (THC) Screen (Negative) ng/mL Ethyl Alcohol (0-10) mg/dL 10/21/20 10/21/20 Range/Units 21:53 21:53 WBC (4.0-10.0) 10^3/ uL RBC (4.1-5.3) 10^6/u L Hgb (11.7-16.6) g/dL Hct (42.0-52.0) % MCV (80-94) fL MCH (28.0-34.0) pg MCHC (30.0-36.0) g/dL RDW (12.1-15.1) % Plt Count (130-400) 10^3/c mm MPV (7.4-10.4) fL Neut % (Auto) % Lymph % (Auto) % Nicollet % (Auto) % Eos % (Auto) % Baso % (Auto) % Neut # (Auto) (1.8-7.7) 10^3/u L Lymph # (Auto) (0.8-4.8) 10^3/u L Nicollet # (Auto) (0.2-0.9) 10^3/u L Eos # (Auto) (0.0-0.8) 10^3/u L Baso # (Auto) (0.0-0.1) 10^3/u L Nucleated RBC % (a uto) % Nucleated RBCs # /100WBC Specimen Type Sample Site ABG pH (7.35-7.45) ABG pCO2 (35-45) mmHg ABG pO2 (80.0-100.0) mmH g ABG HCO3 (22-26) mmol/L ABG O2 Saturation ABG Base Excess (-2.0-2.0) mmol/ L Tam Test A-a O2 Gradient (5-10) mmHg Hematocrit (42-52) % Hgb O2 Saturation (95-100) % Carboxyhemoglobin (0.4-20.1) %THgb Methemoglobin (0.4-1.5) % Total Hemoglobin (14-18) g/dL Ionized Calcium (1.1-1.4) mmol/L O2 Delivery Device O2 Liters/Min % Octave Board Assembler ID Sodium (136-145) mmol/L Potassium (3.5-5.1) mmol/L Chloride (98-107) mmol/L Carbon Dioxide (22-29) mmol/L Anion Gap (5-19) BUN (6-20) mg/dL Creatinine (0.7-1.2) mg/dL GFR Calculation (90-130) mL/min Glucose (65-115) mg/dL Calculated Osmolal ity (285-295) mOsm/k g Lactate (0.5-2.2) mmol/L Calcium (8.5-10.5) mg/dL Total Bilirubin (0.15-1.2) mg/dL AST (0-40) U/L ALT (0-41) U/L Alkaline Phosphata se (40-130) IU/L Creatine Kinase (39-308) U/L Troponin T Baselin e (0-15) ng/L Total Protein (6.6-8.7) g/dL Albumin (3.5-5.2) g/dL Globulin (1.3-4.6) g/dL Urine Color Yellow (Yellow) Urine Appearance Clear (CLEAR) Urine pH 7 (5-7) Ur Specific Gravit y 1.010 (1.005-1.030) Urine Protein Neg (Negative) Urine Glucose (UA) Norm (Normal) Urine Ketones 1+ H (Negative) Urine Blood Neg (Negative) Urine Nitrate Negative (Negative) Urine Bilirubin Neg (Negative) Urine Urobilinogen Norm (Negative) mg/dL Ur Leukocyte Tisha ase Negative (Negative) Urine Opiates Scre en Negative (Negative) ng/mL Ur Barbiturates Sc reen Negative (Negative) ng/mL Valproic Acid (50-100) ug/mL Carbamazepine (4.0-12.0) ug/mL Ur Phencyclidine S crn Negative (Negative) ng/mL Ur Amphetamines Sc reen Negative (Negative) ng/mL U Benzodiazepines Scrn Negative (Negative) ng/mL Urine Cocaine Scre en Negative (Negative) ng/mL U Marijuana (THC) Screen Negative (Negative) ng/mL Ethyl Alcohol (0-10) mg/dL Discharge Plan Discharge Patient Disposition: Home Clinical Impression: Seizure disorder Condition: Stable Prescriptions: No Action albuterol sulfate 90 mcg/actuation HFA aerosol inhaler 1 inh INHALATION Q6H PRN (Reason: shortness of breath or wheezing) Qty: 6.7 RF: 2 lorazepam 0.5 mg tablet 0.5 mg PO QID PRN (Reason: Anxiety) Qty: 90 RF: 2 olanzapine 5 mg Tablet 5 mg PO QPM RF: 0 levetiracetam 500 mg tablet 2,000 mg PO BID Qty: 240 RF: 11 divalproex 500 mg Tablet Extended Release 24 Hr 1,000 mg PO Q24H Qty: 60 RF: 0 folic acid 1 mg Tablet 1 mg PO DAILY Qty: 30 RF: 0 thiamine mononitrate (vit B1) [Vitamin B-1 (mononitrate)] 100 mg Tablet 100 mg PO DAILY Qty: 30 RF: 0 multivitamin with folic acid [Thera] 400 mcg Tablet 1 tab PO DAILY Qty: 30 RF: 0 Tylenol Extra Strength 500 mg Tablet 1,000 mg PO PRN RF: 0 aspirin 81 mg Tablet,Delayed Release (Dr/Ec) 81 mg PO BID RF: 0 Vitamin D3 1 cap PO BID@06,17 RF: 0 carbamazepine 200 mg Tablet Extended Release 12 Hr 400 mg PO BID 30 Days Qty: 120 RF: 0 amoxicillin-pot clavulanate 875-125 mg Tablet 1 tab PO BID 7 Days Qty: 14 RF: 0 cholecalciferol (vitamin D3) 25 mcg (1,000 unit) Tablet 4,000 unit PO DAILY 30 Days Qty: 30 RF: 0 Discharge Orders: Discharge ED (Routine); Ordered 10/21/20 Ordered By: Soy Ruiz Referrals: CATHRYN Mackey, [employer]PERATOR [Primary Care Provider] - Discharge Diet: Advance as tolerated Discharge Activity: Resume usual activity Patient Instructions: Seizures Activity Restrictions/Additional Instructions: It is possible you had a seizure tonight although since the ketamine has wore off you are behaving normal. Please continue to take your medicines and return to the ER with worsening symptoms. Follow-up with your primary care physician in a few days to monitor improvement of your symptoms and continue to not drive a vehicle until you are released by your doctor. Coding Level of Care Code ED Clinical Informatics Director for [facility] Fwd Exam Comprehensive
[2020-10-21] MEDS: sodium chloride 0.9% 1,000 ML 999 ML IV (20:49)
--- NOTE | 2020-10-21 20:52 | PC.NURSE ---
patient to CT
[2020-10-21 20:55] LABS: Basophils % 0.6 %; Eosinophils % 0.2 %; Hematocrit 35.6 % (42.0-52.0); Hemoglobin 11.5 g/dL (11.7-16.6); Lymphocytes # 1.5 10^3/uL (0.8-4.8); Lymphocytes % 29.4 %; Mean Corpuscular HGB Conc 32.3 g/dL (30.0-36.0); Mean Corpuscular Hemoglobin 31.8 pg (28.0-34.0); Mean Corpuscular Volume 98.3 fL (80-94); Mean Platelet Volume 9.2 fL (7.4-10.4); Monocytes # 0.6 10^3/uL (0.2-0.9); Monocytes % 11.7 %; Neutrophils # 3.04 10^3/uL (1.8-7.7); Neutrophils % 58.1 %; Nucleated Red Blood Cells % 0 %; Platelet Count 310 10^3/cmm (130-400); Red Blood Count 3.62 10^6/uL (4.1-5.3); Red Cell Distribution Width 13.2 % (12.1-15.1); White Blood Count 5.2 10^3/uL (4.0-10.0)
[2020-10-21 21:09] VITALS: BP 168/107; PULSE 82; RESP 17
[2020-10-21 21:09] LABS: ABG PCO2 43.8 mmHg (35-45); Arterial Blood Gas Hematocrit 40.4 % (42-52); Blood Gas Allen Test Pos; Blood Gas Sample Site Radial, left; Blood Gas Sample Type Arterial; Carboxyhemoglobin 1.5 %THgb (0.4-20.1); HCO3 ABG 27.2 mmol/L (22-26); HGB O2 Sat 93.3 % (95-100); Ionized Calcium Level - ABG 1.2 mmol/L (1.1-1.4); Methemoglobin 0.7 % (0.4-1.5); Oxygen Device NC; Oxygen Saturation ABG 95.4; PO2 ABG 74.4 mmHg (80.0-100.0); Potassium Level - ABG 4.2 mmol/L (3.5-5.0); Total Hemoglobin 13.2 g/dL (14-18)
--- NOTE | 2020-10-21 21:09 | PC.NURSE ---
patient given urinal for sample
[2020-10-21 21:15] LABS: Alanine Aminotransferase 37 U/L (0-41); Albumin Level 3.6 g/dL (3.5-5.2); Alkaline Phosphatase 78 IU/L (40-130); Anion Gap 13.1 (5-19); Aspartate Amino Transferase 24 U/L (0-40); Blood Urea Nitrogen 8 mg/dL (6-20); Calcium 8.3 mg/dL (8.5-10.5); Carbon Dioxide 25 mmol/L (22-29); Chloride 102 mmol/L (98-107); Creatine Phosphokinase 178 U/L (39-308); Glomerular Filtration Rate 173.9 mL/min (90-130); Glucose 99 mg/dL (65-115); Osmolality Calculated 280 mOsm/kg (285-295); Potassium 4.1 mmol/L (3.5-5.1); Sodium 136 mmol/L (136-145); Total Bilirubin 0.2 mg/dL (0.15-1.2); Total Protein 6.6 g/dL (6.6-8.7)
[2020-10-21 21:17] LABS: Alcohol Level < 10 mg/dL (0-10)
[2020-10-21 21:18] LABS: Troponin(5th) Baseline 9 ng/L (0-15)
[2020-10-21 21:29] LABS: Valproic Acid Level 50.8 ug/mL (50-100)
[2020-10-21 21:50] VITALS: BP 147/94; PULSE 84; RESP 15; O2SAT 98
[2020-10-21 22:00] LABS: Add Urine Microscopic? NO
[2020-10-21 22:08] LABS: Bilirubin Urine Neg (Negative); Blood Urine Neg (Negative); Glucose Urine UA Norm (Normal); Ketones Urine 1+ (Negative); Leukocyte Esterase Urine Negative (Negative); Nitrate Urine Negative (Negative); Protein Urine Neg (Negative); Urine Appearance Clear (CLEAR); Urine Color Yellow (Yellow); Urobilinogen Urine Norm (Negative); pH Urine 7 (5-7)
[2020-10-21 22:17] LABS: Amphetamines Screen Urine Negative (Negative); Barbiturates Screen Urine Negative (Negative); Benzodiazepines Screen Urine Negative (Negative); Cocaine Screen Urine Negative (Negative); Opiate Screen Urine Negative (Negative); PCP Screen Urine Negative (Negative); THC Screen Urine Negative (Negative)
[2020-10-21 22:49] VITALS: BP 166/120; PULSE 98; O2SAT 97
[2020-10-22] VITALS (17 sets, daily range): BP systolic 77–152; BP diastolic 48–108; PULSE 71–91; RESP 14–18; TEMP 36.6–36.7; O2SAT 94–99
[2020-10-22] MEDS: haloperidol inj 5 mg/mL INJ 1 mL IVP (02:38)
[2020-10-22] MEDS: LORazepam 2 mg/mL INJ 1 mL IVP (02:39)
--- NOTE | 2020-10-22 03:09 | PM.HP ---
Providers/Chief Complaint Primary Care Provider: NANCY Cramre Chief Complaint: HI/ SEIZURE History of Present Illness 55-year-old gentleman discharged earlier in the afternoon on 10/21 was brought back to emergency department by EMS after on the way home he reportedly grabbed the steering wheel jerking around while the car was in motion, as reported by his family member after he had arrived in ER just prior to patient's discharge. Per report patient initially was found by EMS with decreased level of consciousness, with concern for possible seizure episode for which he was given 2 mg benzodiazepine, although no witnessed seizure was reported. In ER patient on presentation was confused, possibly postictal, but did well after a while with return of mental status to what was thought to be his baseline. He was thought at that time to be safe to discharge by the daytime ER provider. However, after arrival of his family, they relate the details of what happened after discharge earlier in the day which were previously unknown, and were concerned about the prior episode on the way home. Also at that time he reportedly was again making some unusual statements about being God , and mimicking explosion sounds. Psychiatry was contacted by ER physician with request for additional evaluation of persistent behavioral disturbances and what appears to be likely hallucinations. Given concern for possible preceding seizure, ongoing postictal state psychiatry requests that he be observed first to be sure he is no longer postictal, without recurrence of seizure. Upon additional discussion of overnight ER physician with the patient about staying in the hospital for additional evaluation and monitoring, the patient expressed in threatening manner that he was going home and was not to be prevented from doing so or else, vocalizing and gesturing shooting a gun toward the ER physician. Review of Systems Narrative: He provides a limited review of systems. Const: Denies: fever(s) Eyes: Denies: change in vision Card: Denies: chest pain or pre-syncope Resp: Denies: dyspnea, productive cough or change in phlegm color GI: Denies: abdominal pain, nausea, vomiting, diarrhea, constipation, hematochezia or melena : Denies: difficulty urinating, urinary frequency or hematuria Musc: Denies: back pain Skin/Breast: Denies: rash, sores or new lesions Neuro: Reports: seizure-like activity; Denies: headache(s), numbness in extremities, weakness in extremities or dizziness Endo: Denies: polyuria Medications/Allergies Home Medications Medication Instructions Recorded Confirmed Last Taken Type olanzapine 5 mg PO QPM 10/12/19 10/20/20 Unknown History folic acid 1 mg PO DAILY #30 tab 08/28/20 10/20/20 Unknown Rx multivitamin with folic acid 1 tab PO DAILY #30 tab 08/28/20 10/20/20 Unknown Rx [Thera] thiamine mononitrate (vit B1) 100 mg PO DAILY #30 tab 08/28/20 10/20/20 Unknown Rx [Vitamin B-1 (mononitrate)] albuterol sulfate 90 mcg/actuation 1 inh INHALATION Q6H PRN #6.7 gm 08/29/20 10/20/20 Unknown Rx aerosol inhaler lorazepam 0.5 mg tablet 0.5 mg PO QID PRN #90 tab 08/29/20 10/20/20 Unknown Rx divalproex 1,000 mg PO Q24H #60 tab 10/14/20 10/20/20 Unknown Rx levetiracetam 2,000 mg PO BID #240 tab 10/14/20 10/20/20 Unknown Rx Tylenol Extra Strength 1,000 mg PO PRN 10/20/20 10/20/20 Unknown History Vitamin D3 1 cap PO BID@06,17 10/20/20 10/20/20 Unknown History aspirin 81 mg PO BID 10/20/20 10/20/20 Unknown History amoxicillin-pot clavulanate 1 tab PO BID 7 Days #14 tab 10/21/20 Unknown Rx carbamazepine 400 mg PO BID 30 Days #120 tab 10/21/20 Unknown Rx cholecalciferol (vitamin D3) 4,000 unit PO DAILY 30 Days #30 tab 10/21/20 Unknown Rx Allergies Allergy/AdvReac Type Severity Reaction Status Date / Time bismuth subsalicylate Allergy unknown Verified 08/24/20 21:04 [From Kaopectate (bismuth subsalicy)] multivitamin [From Centrum] Allergy unknown Verified 08/24/20 21:04 cholesterol medication Allergy unknown Uncoded 08/24/20 21:04 PFSH Acute PFSH: Medical History Chronic pain syndrome Complex partial epilepsy with generalization SYDNEY (generalized anxiety disorder) Mixed hyperlipidemia Schizophrenia Seizure disorder Surgical History History of mandibular surgery Right mandible fracture Status post lung surgery bullectomy Family History Other Heart disease Social History Smoking and tobacco status: current every day smoker cigarettes Packs smoked per day: 1 Alcohol intake: never Lives independently: Yes Housing: House Vitals/I&O/Wt Last Vital Signs Temp 98.3 F 10/21/20 20:06 Pulse 91 10/22/20 02:49 Resp 14 10/22/20 02:08 BP 140/105 10/22/20 02:49 Pulse Ox 95 10/22/20 02:49 10/21/20 10/21/20 10/22/20 14:59 22:59 06:59 Intake Total 1000 / 1000 Balance 1000 / 1000 Weight last 48 hrs Weight 108.862 kg Physical Exam Const: COMMON NORMALS: no acute distress GENERAL APPEARANCE: cooperative (After medication.) and disheveled ORIENTATION/CONSCIOUSNESS: Yes Other orientation findings (Somnolent after receiving medication. ) HENMT: COMMON NORMALS: oropharynx normal Neck/C-Spine: COMMON NORMALS: no JVD Resp: COMMON NORMALS: normal respiratory effort and clear to auscultation bilaterally AUSCULTATION: clear to auscultation bilaterally Cardio: COMMON NORMALS: no JVD, regular rhythm, S1 normal heart sound present, S2 normal heart sound present and No murmurs present (Cardio) RHYTHM: regular rhythm HEART SOUNDS: S1 normal heart sound present and S2 normal heart sound present GI: COMMON NORMALS: Normal to inspection, nondistended, normoactive bowel sounds present, Soft to palpation and non-tender PALPATION: Yes Soft to palpation Extremity: COMMON NORMALS: no joint enlargement and no pedal edema Neuro: COMMON NORMALS: patient oriented x3 and moves all extremities Skin: COMMON NORMALS: no rashes or lesions noted GENERAL SKIN EXAM: no rashes or lesions noted Data : 10/21/20 20:50 10/21/20 20:50 A&P Assessment and plan (1) Altered mental status: With agitated and unsafe behavior as revealed by his family on the way home from prior discharge, grabbing the steering wheel while the car was in motion, subsequently reportedly noted with decreased responsiveness, after a possible seizure episode, then lethargy, confusion at the beginning of his stay in ER, with improvement in mental status, but subsequently with suspected hallucinations in ER and then threatening behavior. He would certainly benefit from additional psychiatric evaluation. At admission affidavit was filled out by his family, and is being prepared with the rest of 96-hour hold documentation in the ER. At this time given concern for possible postictal state and possible preadmission breakthrough seizure additional observation requested by psychiatry prior to evaluation and possible admission. Work-up during the current ER stay otherwise has not been remarkable, without signs of infection, without findings on CBC or CMP that may explain his symptoms, with unremarkable UA, unremarkable toxicology panel. Unremarkable head CT. No seizure was witnessed during his prior stay in the hospital, nor during his stay in the ER earlier last night. His seizure medications were adjusted just prior to discharge due to concern of possible breakthrough seizure recurrence prior to that admission. Neurology assistance has been sought in ER, and he will be assessed tomorrow regarding utility of additional evaluation of possible contribution of seizures to the psychotic symptoms. Monitor after receiving medication in ER. Status: Acute (2) Seizure disorder: Reported history of complex partial seizures, with poor adherence to medical therapy, although to me states he has been taking his medications. 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 He reportedly can feel episodes coming on, becomes jittery, lightheaded, and his right arm starts jerking. He previously reportedly would be taking lorazepam at that time to stop the seizure. At this time we will continue Depakote, Keppra, carbamazepine at increased dose of 400 mg twice daily. Keppra level has been requested. Valproic acid and carbamazepine levels therapeutic. He should not drive until cleared by physician with 6-month seizure-free window. Status: Acute (3) Schizophrenia: Will benefit from additional psychiatric evaluation and management once there is no longer concern for postictal state, recurrent seizure. Status: Acute Qualifiers: Schizophrenia type: unspecified Qualified Code(s): F20.9 - Schizophrenia, unspecified (4) Vitamin D deficiency: Continue replacement. Status: Acute (5) Smoking addiction: Encourage cessation. Nicotine replacement in case of withdrawal. Status: Acute Additional A&P Information Possible recent aspiration: Was discharged with Augmentin due to possible aspiration with noted wheezing during prior admission. Currently wheezing appears resolved, he is not short of breath, although is on minimal nasal cannula oxygen in ER. Saturation in mid to high 90s. His chest x-ray is unremarkable. Attestations Medical Necessity Statement*: Admission of over 2 midnights is going to be needed for assessment management of behavioral disturbances with underlying schizophrenia once postictal state is no longer a concern, without recurrence of seizure. Coding Level of Care Code Acute Blender Laborer for [facility] Fwd Exam Comprehensive Diagnoses Altered mental status R41.82 Seizure disorder G40.909 Schizophrenia F20.9 Schizophrenia type: unspecified Vitamin D deficiency E55.9 Smoking addiction F17.200
[2020-10-22] MEDS: multivitamin therapeutic Tablet 1 TAB PO (09:03)
[2020-10-22] MEDS: aspirin 81 mg EC Tablet PO ×2 (09:03→17:22)
[2020-10-22] MEDS: thiamine 100 mg Tablet PO (09:03)
[2020-10-22] MEDS: amoxicillin-clav 875-125 mg Tablet 1 TAB PO ×2 (09:03→17:21)
[2020-10-22] MEDS: folic acid 1 mg Tablet PO (09:04)
[2020-10-22] MEDS: heparin 5,000 unit/mL INJ 1 mL 5000 UNIT SUBCUT ×2 (09:05→17:22)
[2020-10-22] MEDS: cholecalciferol (vitamin D3) 1,000 unit Tablet 4000 UNIT PO (09:09)
[2020-10-22] MEDS: levETIRAcetam 500 mg Tablet 2000 MG PO ×2 (09:10→17:21)
[2020-10-22] MEDS: divalproex ER 500 mg Tablet (24H) 1000 MG PO (09:10)
[2020-10-22] MEDS: carBAMazepine XR (12 HR) 200 mg Tablet 400 MG PO ×2 (09:49→17:21)
--- NOTE | 2020-10-22 12:00 | P.PN_ITS ---
Subjective Subjective: Interval history: This morning patient was examined, he is a bit drowsy, but arousable, he tells me that when he was driving, back home, he had jerking motion, he thought he had a seizure, he pulled over, I advised patient that he was not allowed to drive home, I have told him multiple times that according to [facility] law he cannot drive for 3 to 6 months after seizure, he apologized, he denies suicidal ideation, denies homicidal ideation, denies seeing or hearing things that are not there, is not agitated with me, follows commands Vitals/I&O/Wt Last Vital Signs Temp 98.0 F 10/22/20 11:46 Pulse 77 10/22/20 11:46 Resp 18 10/22/20 11:46 BP 132/77 10/22/20 11:46 Pulse Ox 98 10/22/20 11:46 10/21/20 10/22/20 10/22/20 22:59 06:59 14:59 Intake Total 1000 / 1000 360 / 360 Output Total 450 / 450 Balance 1000 / 1000 -90 / -90 Weight last 48 hrs Weight 108.862 kg Physical Exam Const: COMMON NORMALS: no acute distress and patient oriented x3 HENMT: COMMON NORMALS: normocephalic HEAD & SCALP: normocephalic Neck/C-Spine: COMMON NORMALS: no JVD Resp: COMMON NORMALS: normal respiratory effort, No retractions, No use of accessory muscles and clear to auscultation bilaterally AUSCULTATION: clear to auscultation bilaterally Cardio: COMMON NORMALS: no JVD, regular rate, regular rhythm, S1 normal heart sound present and S2 normal heart sound present RATE: regular rate RHYTHM: regular rhythm HEART SOUNDS: S1 normal heart sound present and S2 normal heart sound present GI: COMMON NORMALS: Normal to inspection, nondistended, normoactive bowel sounds present, Soft to palpation, non-tender, No hepatosplenomegaly present, no masses and no bruits PALPATION: Yes Soft to palpation and Yes No hepatosplenomegaly present Extremity: COMMON NORMALS: capillary refill normal, no clubbing, cyanosis or edema, no calf tenderness and no pedal edema Neuro: COMMON NORMALS: patient oriented x3 Psych: COMMON NORMALS: mental status grossly normal, denies hallucinations, denies homicidal ideation and denies suicidal ideation ATTITUDE: Yes Withdrawn affect present ACTIVITY/MOTOR BEHAVIOR: Yes Avoids eye contact (attititude/behavior) SPEECH: Yes Pressured speech present MOOD & AFFECT: Yes Flat affect present Data : 10/21/20 20:50 10/21/20 20:50 A&P Assessment and plan (1) Altered mental status: -Is alert oriented x3 -Denies any suicidal or homicidal ideation, denies seeing or hearing things and that there -Has a history of paranoid schizophrenia -Medical work-up has been relatively unremarkable -Continue to monitor mental status, neurochecks, aspiration precautions, seizure precautions -At admission affidavit was filled out by his family, and is being prepared with the rest of 96-hour hold documentation in the ER. -At this time given concern for possible postictal state and possible preadmission breakthrough seizure additional observation requested by psychiatry prior to evaluation and possible admission. Status: Acute (2) Seizure disorder: -Continue carbamazepine 400 mg twice daily -Depakote 2000 mg every 24 -Keppra 2000 mg twice daily -Seizure precautions, aspiration precautions, neurochecks -Ativan as needed for breakthrough seizures Reported history of complex partial seizures, with poor adherence to medical therapy, although to me states he has been taking his medications. 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 He reportedly can feel episodes coming on, becomes jittery, lightheaded, and his right arm starts jerking. He previously reportedly would be taking lorazepam at that time to stop the seizure. At this time we will continue Depakote, Keppra, carbamazepine at increased dose of 400 mg twice daily. Keppra level has been requested. Valproic acid and carbamazepine levels therapeutic. He should not drive until cleared by physician with 6-month seizure-free window. Status: Acute (3) Schizophrenia: Will benefit from additional psychiatric evaluation and management once there is no longer concern for postictal state, recurrent seizure. Status: Acute Qualifiers: Schizophrenia type: unspecified Qualified Code(s): F20.9 - S chizophrenia, unspecified (4) Vitamin D deficiency: Continue replacement. Status: Acute (5) Smoking addiction: Encourage cessation. Nicotine replacement in case of withdrawal. Status: Acute Additional A&P Information Possible recent aspiration: Was discharged with Augmentin due to possible a spiration with noted wheezing during prior admission. Currently wheezing appears resolved, he is not short of breath, although is on minimal nasal cannula oxygen in ER. Saturation in mid to high 90s. His chest x-ray is unremarkable. Attestations 2 Medical Necessity Statement*: Patient requires hospitalization for recurrent breakthrough seizures, paranoid schizophrenia, on a 96-hour hold Coding Level of Care Code Acute Vinyl Top Installer for [facility] Fwd Diagnoses Altered mental status R41.82 Seizure disorder G40.909 Schizophrenia F20.9 Schizophrenia type: unspecified Vitamin D deficiency E55.9 Smoking addiction F17.200
[2020-10-22] MEDS: OLANZapine 5 mg TABLET PO (17:21)
[2020-10-23] VITALS (7 sets, daily range): BP systolic 119–157; BP diastolic 78–85; PULSE 70–84; RESP 16–18; TEMP 36.6–36.8; O2SAT 95–98
[2020-10-23] MEDS: heparin 5,000 unit/mL INJ 1 mL 5000 UNIT SUBCUT ×3 (00:32→16:57)
[2020-10-23 04:30] LABS: Basophils % 0.4 %; Eosinophils # 0.1 10^3/uL (0.0-0.8); Eosinophils % 1.2 %; Hematocrit 34.5 % (42.0-52.0); Hemoglobin 11.6 g/dL (11.7-16.6); Lymphocytes # 2.9 10^3/uL (0.8-4.8); Lymphocytes % 54.8 %; Mean Corpuscular HGB Conc 33.6 g/dL (30.0-36.0); Mean Corpuscular Hemoglobin 32.2 pg (28.0-34.0); Mean Corpuscular Volume 95.8 fL (80-94); Mean Platelet Volume 9.9 fL (7.4-10.4); Monocytes # 0.5 10^3/uL (0.2-0.9); Monocytes % 10.4 %; Neutrophils # 1.71 10^3/uL (1.8-7.7); Neutrophils % 32.8 %; Nucleated Red Blood Cells % 0 %; Platelet Count 265 10^3/cmm (130-400); Red Cell Distribution Width 12.8 % (12.1-15.1); White Blood Count 5.2 10^3/uL (4.0-10.0)
[2020-10-23 04:54] LABS: Alanine Aminotransferase 36 U/L (0-41); Albumin Level 3.7 g/dL (3.5-5.2); Alkaline Phosphatase 79 IU/L (40-130); Anion Gap 12.8 (5-19); Aspartate Amino Transferase 23 U/L (0-40); Blood Urea Nitrogen 7 mg/dL (6-20); Calcium 8.9 mg/dL (8.5-10.5); Carbon Dioxide 28 mmol/L (22-29); Chloride 96 mmol/L (98-107); Globulin 2.7 g/dL (1.3-4.6); Glomerular Filtration Rate 173.9 mL/min (90-130); Glucose 95 mg/dL (65-115); Magnesium 1.9 mg/dL (1.7-2.3); Osmolality Calculated 274 mOsm/kg (285-295); Phosphorus 3.8 mg/dL (2.5-4.5); Potassium 3.8 mmol/L (3.5-5.1); Sodium 133 mmol/L (136-145); Total Bilirubin 0.3 mg/dL (0.15-1.2); Total Protein 6.4 g/dL (6.6-8.7)
[2020-10-23] MEDS: cholecalciferol (vitamin D3) 1,000 unit Tablet 4000 UNIT PO (08:06)
[2020-10-23] MEDS: aspirin 81 mg EC Tablet PO ×2 (08:06→16:57)
[2020-10-23] MEDS: levETIRAcetam 500 mg Tablet 2000 MG PO ×2 (08:06→16:56)
[2020-10-23] MEDS: thiamine 100 mg Tablet PO (08:07)
[2020-10-23] MEDS: carBAMazepine XR (12 HR) 200 mg Tablet 400 MG PO ×2 (08:07→16:56)
[2020-10-23] MEDS: amoxicillin-clav 875-125 mg Tablet 1 TAB PO ×2 (08:07→16:56)
[2020-10-23] MEDS: multivitamin therapeutic Tablet 1 TAB PO (08:07)
[2020-10-23] MEDS: folic acid 1 mg Tablet PO (08:07)
[2020-10-23] MEDS: divalproex ER 500 mg Tablet (24H) 1000 MG PO (08:07)
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
--- NOTE | 2020-10-23 09:37 | PC.CHAP ---
Pastoral Care Encounter/Spiritual Assessment Type of Contact [] Declined travel director visit [] Patient/Family/Request visit [] Outpatient visit [] Follow-up visit [] Physician referral [] Code/Alert [x] Routine visit [] Staff referral [] Actively dying [] Patient sleeping [] Family support [] [] Out of room [] Palliative care [] [] Receiving care in room [] Pre-surgical visit [] Trauma [] Long length of stay [] ICU visit [] Other: Relational/Emotional Strength [] Patient feels connected with others/family/visitors/staff [] Distress [] Loneliness/isolation [] Abandonment Spirituality of Patient [x] Person of Edel [] Attends Latter Day of their [place] [] Believes in Prayer [] Reads Bible or Christian materials [] There are Spiritual issues to be addressed Emissions Technician Interventions [x] Prayer [x] Active listening [] Non-anxious presence [] Spiritual/emotional support [] Crisis/trauma care [] Spiritual counseling [] Bereavement support [] Provided bereavement packet [] Provided Bible/devotional materials [] Provided toy/stuffed animal, coloring book to patient or family member [] Provided Communion [] Anointing/[place] [] Salvation [x] Completed spiritual assessment [] Other: Impact on Illness or Injury [] Angry [] Fearful [] Anxious [] Often cries [] Exhaustion [] Unable to work [] Unable to attend congregation [] Unable to walk/stand [] Unable to read [] Unable to drive [] Unable to eat/drink [] Unable to sleep [] Unable to be with family [] Patient intubated [] Other: Summary Time spent with patient 10 mi8n
--- NOTE | 2020-10-23 10:06 | PC.NURSE ---
pt transported off floor by staff for EEG.
--- NOTE | 2020-10-23 10:21 | PC.NURSE ---
pt returned to room.
--- NOTE | 2020-10-23 12:15 | PM.PN ---
Subjective Subjective: Interval history: Patient was examined this morning, he is laying in bed, no seizure-like episodes, no agitation episodes, no confusion episodes, he knows that he is in the hospital, knows his name, knows the date, Vitals/I&O/Wt Last Vital Signs Temp 98.0 F 10/23/20 11:57 Pulse 78 10/23/20 11:57 Resp 18 10/23/20 11:57 BP 149/79 10/23/20 11:57 Pulse Ox 97 10/23/20 11:57 10/22/20 10/23/20 10/23/20 22:59 06:59 14:59 Intake Total 480 / 840 480 / 480 Output Total 675 / 1125 950 / 2075 600 / 600 Balance -195 / -285 -950 / -1235 -120 / -120 Weight last 48 hrs Weight 108.862 kg Physical Exam Const: COMMON NORMALS: no acute distress and patient oriented x3 HENMT: COMMON NORMALS: normocephalic HEAD & SCALP: normocephalic Neck/C-Spine: COMMON NORMALS: no JVD Resp: COMMON NORMALS: normal respiratory effort, No retractions, No use of accessory muscles and clear to auscultation bilaterally AUSCULTATION: clear to auscultation bilaterally Cardio: COMMON NORMALS: no JVD, regular rate, regular rhythm, S1 normal heart sound present and S2 normal heart sound present RATE: regular rate RHYTHM: regular rhythm HEART SOUNDS: S1 normal heart sound present and S2 normal heart sound present GI: COMMON NORMALS: Normal to inspection, nondistended, normoactive bowel sounds present, Soft to palpation, non-tender, No hepatosplenomegaly present, no masses and no bruits PALPATION: Yes Soft to palpation and Yes No hepatosplenomegaly present Extremity: COMMON NORMALS: capillary refill normal, no clubbing, cyanosis or edema, no calf tenderness and no pedal edema Neuro: COMMON NORMALS: patient oriented x3 Psych: COMMON NORMALS: mental status grossly normal ACTIVITY/MOTOR BEHAVIOR: Yes Avoids eye contact (attititude/behavior) MOOD & AFFECT: Yes Flat affect present Data : 10/23/20 03:50 10/23/20 03:50 A&P Assessment and plan (1) Altered mental status: -Is alert oriented x3 -Has a history of paranoid schizophrenia -Medical work-up has been relatively unremarkable -Continue to monitor mental status, neurochecks, aspiration precautions, seizure precautions -At admission affidavit was filled out by his family, and is being prepared with the rest of 96-hour hold documentation in the ER. -At this time given concern for possible postictal state and possible preadmission breakthrough seizure additional observation requested by psychiatry prior to evaluation and possible admission -Psychiatry on consult Status: Acute (2) Seizure disorder: -Continue carbamazepine 400 mg twice daily -Depakote 2000 mg every 24 -Keppra 2000 mg twice daily -Seizure precautions, aspiration precautions, neurochecks -Ativan as needed for breakthrough seizures -Neurology on consult, will have EEG today Reported history of complex partial seizures, with poor adherence to medical therapy, although to me states he has been taking his medications. 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 He reportedly can feel episodes coming on, becomes jittery, lightheaded, and his right arm starts jerking. He previously reportedly would be taking lorazepam at that time to stop the seizure. At this time we will continue Depakote, Keppra, carbamazepine at increased dose of 400 mg twice daily. Keppra level has been requested. Valproic acid and carbamazepine levels therapeutic. He should not drive until cleared by physician with 6-month seizure-free window. Status: Acute (3) Schizophrenia: Will benefit from additional psychiatric evaluation and management once there is no longer concern for postictal state, recurrent seizure. Psychiatry consult Status: Acute Qualifiers: Schizophrenia type: unspecified Qualified Code(s): F20.9 - Schizophrenia, unspecified (4) Vitamin D deficiency: Continue replacement. Status: Acute (5) Smoking addiction: Encourage cessation. Nicotine replacement in case of withdrawal. Status: Acute Additional A&P Information Possible recent aspiration: Was discharged with Augmentin due to possible aspiration with noted wheezing during prior admission. Currently wheezing appears resolved, he is not short of breath, although is on minimal nasal cannula oxygen in ER. Saturation in mid to high 90s. His chest x-ray is unremarkable. Attestations Medical Necessity Statement*: Patient requires hospitalization for recurrent seizures, paranoid schizophrenia, has a 96-hour hold Coding Level of Care Code Acute Lead Front Desk Agent for [facility] Diagnoses Altered mental status R41.82 Seizure disorder G40.909 Schizophrenia F20.9 Schizophrenia type: unspecified Vitamin D deficiency E55.9 Smoking addiction F17.200
--- NOTE | 2020-10-23 13:42 | PC.RESP ---
Smoking Cessation information sent to patient.
--- NOTE | 2020-10-23 13:45 | PC.NURSE ---
pt returned to unit via wheelchair
[2020-10-23] MEDS: OLANZapine 5 mg TABLET PO (16:56)
[2020-10-24] VITALS (7 sets, daily range): BP systolic 100–146; BP diastolic 68–87; PULSE 67–89; RESP 16–18; TEMP 36.5–37.6; O2SAT 95–99
[2020-10-24] MEDS: heparin 5,000 unit/mL INJ 1 mL 5000 UNIT SUBCUT ×2 (00:32→08:48)
[2020-10-24 05:06] LABS: Basophils % 0.5 %; Eosinophils # 0.1 10^3/uL (0.0-0.8); Eosinophils % 1.2 %; Hematocrit 36.7 % (42.0-52.0); Hemoglobin 12.1 g/dL (11.7-16.6); Lymphocytes # 3.2 10^3/uL (0.8-4.8); Lymphocytes % 53.3 %; Mean Corpuscular Hemoglobin 31.5 pg (28.0-34.0); Mean Corpuscular Volume 95.6 fL (80-94); Monocytes # 0.7 10^3/uL (0.2-0.9); Neutrophils # 1.94 10^3/uL (1.8-7.7); Neutrophils % 32.8 %; Nucleated Red Blood Cells % 0 %; Platelet Count 334 10^3/cmm (130-400); Red Blood Count 3.84 10^6/uL (4.1-5.3); Red Cell Distribution Width 12.8 % (12.1-15.1); White Blood Count 5.9 10^3/uL (4.0-10.0)
[2020-10-24 05:39] LABS: Alanine Aminotransferase 37 U/L (0-41); Albumin Level 4.3 g/dL (3.5-5.2); Alkaline Phosphatase 87 IU/L (40-130); Anion Gap 13.4 (5-19); Aspartate Amino Transferase 23 U/L (0-40); Blood Urea Nitrogen 7 mg/dL (6-20); Calcium 9.6 mg/dL (8.5-10.5); Carbon Dioxide 28 mmol/L (22-29); Chloride 96 mmol/L (98-107); Globulin 3.1 g/dL (1.3-4.6); Glomerular Filtration Rate 173.9 mL/min (90-130); Glucose 82 mg/dL (65-115); Magnesium 1.9 mg/dL (1.7-2.3); Osmolality Calculated 273 mOsm/kg (285-295); Phosphorus 3.2 mg/dL (2.5-4.5); Potassium 4.4 mmol/L (3.5-5.1); Sodium 133 mmol/L (136-145); Total Bilirubin 0.3 mg/dL (0.15-1.2); Total Protein 7.4 g/dL (6.6-8.7)
[2020-10-24] MEDS: aspirin 81 mg EC Tablet PO (08:48)
[2020-10-24] MEDS: amoxicillin-clav 875-125 mg Tablet 1 TAB PO (08:48)
[2020-10-24] MEDS: divalproex ER 500 mg Tablet (24H) 1000 MG PO (08:48)
[2020-10-24] MEDS: thiamine 100 mg Tablet PO (08:48)
[2020-10-24] MEDS: multivitamin therapeutic Tablet 1 TAB PO (08:48)
[2020-10-24] MEDS: cholecalciferol (vitamin D3) 1,000 unit Tablet 4000 UNIT PO (08:48)
[2020-10-24] MEDS: folic acid 1 mg Tablet PO (08:48)
[2020-10-24] MEDS: levETIRAcetam 500 mg Tablet 2000 MG PO (08:48)
[2020-10-24] MEDS: carBAMazepine XR (12 HR) 200 mg Tablet 400 MG PO (09:12)
--- NOTE | 2020-10-24 12:14 | PM.MISC ---
Miscellaneous Note Purpose of Documentation: Electroencephalogram 10/23/2020 ORDERING PHYSICIAN: Dr. Cannon. REASON FOR STUDY: Rule out underlying focal status epilepticus. STUDY: This was a 21 channel digital electroencephalogram performed using the 10-20 international system of electrode placement. This study was non-sleep deprived and the patient was awake, and drowsy and asleep. Photic stimulation and hyperventilation were included. FINDINGS: The waking background was poorly organized and consisted of a mixture of posterior 10 Hz alpha intermixed with theta. There was frontal intermittent rhythmic delta activity (FIRDA). There were frequent eye movements and a variety of movement artifacts. There were periods of drowsiness characterized by mild diffuse slowing. Photic stimulation produced a bilateral driving response in the occipital leads without any evidence of a photoconvulsive response. Hyperventilation for three minutes was performed well and had an alerting effect. No focal, lateralizing or epileptiform activity was seen. IMPRESSION: This was a normal routine EEG, awake and drowsy, with no behavioral or electrographic epileptiform activity. A normal EEG does not exclude a diagnosis of epilepsy. There was no sign of subclinical seizures during this exam. Duration of EE.7
--- NOTE | 2020-10-24 12:36 | PM.PN ---
Subjective Subjective: Interval history: Patient was examined this morning, he sitting up to the side of bed, alert oriented x3, follows all commands, no episodes of seizures overnight, denies any suicidal or homicidal ideation, denies any hearing things that are not there, is wondering when he can go home Vitals/I&O/Wt Last Vital Signs Temp 99.3 F 10/24/20 12:00 Pulse 81 10/24/20 12:00 Resp 18 10/24/20 12:00 BP 125/79 10/24/20 12:00 Pulse Ox 97 10/24/20 12:00 10/23/20 10/24/20 10/24/20 22:59 06:59 14:59 Intake Total 120 / 960 720 / 720 Balance 120 / 160 720 / 720 Physical Exam Const: COMMON NORMALS: no acute distress and patient oriented x3 HENMT: COMMON NORMALS: normocephalic HEAD & SCALP: normocephalic Neck/C-Spine: COMMON NORMALS: no JVD Resp: COMMON NORMALS: normal respiratory effort, No retractions, No use of accessory muscles and clear to auscultation bilaterally AUSCULTATION: clear to auscultation bilaterally Cardio: COMMON NORMALS: no JVD, regular rate, regular rhythm, S1 normal heart sound present and S2 normal heart sound present RATE: regular rate RHYTHM: regular rhythm HEART SOUNDS: S1 normal heart sound present and S2 normal heart sound present GI: COMMON NORMALS: Normal to inspection, nondistended, normoactive bowel sounds present, Soft to palpation, non-tender, No hepatosplenomegaly present, no masses and no bruits PALPATION: Yes Soft to palpation and Yes No hepatosplenomegaly present Extremity: COMMON NORMALS: capillary refill normal, no clubbing, cyanosis or edema, no calf tenderness and no pedal edema Neuro: COMMON NORMALS: patient oriented x3 Psych: COMMON NORMALS: mental status grossly normal Data : 10/24/20 04:37 10/24/20 04:37 A&P Assessment and plan (1) Altered mental status: -Is alert oriented x3 -Has a history of paranoid schizophrenia -Medical work-up has been relatively unremarkable -Continue to monitor mental status, neurochecks, aspiration precautions, seizure precautions -At admission affidavit was filled out by his family, and is being prepared with the rest of 96-hour hold documentation in the ER. -At this time given concern for possible postictal state and possible preadmission breakthrough seizure additional observation requested by psychiatry prior to evaluation and possible admission -Psychiatry on consult Status: Acute (2) Seizure disorder: -Continue carbamazepine 400 mg twice daily -Depakote 2000 mg every 24 -Keppra 2000 mg twice daily -Seizure precautions, aspiration precautions, neurochecks -Ativan as needed for breakthrough seizures -Neurology on consult, EEG within normal limits -Recommended Onfi 20 mg daily Reported history of complex partial seizures, with poor adherence to medical therapy, although to me states he has been taking his medications. 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 He reportedly can feel episodes coming on, becomes jittery, lightheaded, and his right arm starts jerking. He previously reportedly would be taking lorazepam at that time to stop the seizure. At this time we will continue Depakote, Keppra, carbamazepine at increased dose of 400 mg twice daily. Keppra level has been requested. Valproic acid and carbamazepine levels therapeutic. He should not drive until cleared by physician with 6-month seizure-free window. Status: Acute (3) Schizophrenia: Will benefit from additional psychiatric evaluation and management once there is no longer concern for postictal state, recurrent seizure. Psychiatry consult Status: Acute Qualifiers: Schizophrenia type: unspecified Qualified Code(s): F20.9 - Schizophrenia, unspecified (4) Vitamin D deficiency: Continue replacement. Status: Acute (5) Smoking addiction: Encourage cessation. Nicotine replacement in case of withdrawal. Status: Acute Additional A&P Information Possible recent aspiration: Was discharged with Augmentin due to possible aspiration with noted wheezing during prior admission. Currently wheezing appears resolved, he is not short of breath, although is on minimal nasal cannula oxygen in ER. Saturation in mid to high 90s. His chest x-ray is unremarkable. Attestations Medical Necessity Statement*: Requires hospitalization for breakthrough seizures, paranoid schizophrenia Coding Level of Care Code Acute Homeowner Association Manager for [facility] Diagnoses Altered mental status R41.82 Seizure disorder G40.909 Schizophrenia F20.9 Schizophrenia type: unspecified Vitamin D deficiency E55.9 Smoking addiction F17.200
--- NOTE | 2020-10-24 13:01 | PC.NURSE ---
Called patient's brother and sister to give them update on patient's stay.
--- NOTE | 2020-10-24 13:51 | PM.DCS ---
Discharge Providers Date of Admission: 10/22/20 03:28 Date of Discharge: October 24, 2020 Attending Provider at Admission: Silver Hughes Attending Provider at Discharge: Jv Cannon MD Primary Care Provider: NANCY Cramer Diagnoses at Discharge Discharge Diagnosis (1) Altered mental status: Status: Acute (2) Seizure disorder: Status: Acute (3) Schizophrenia: Status: Acute Qualifiers: Schizophrenia type: unspecified Qualified Code(s): F20.9 - Schizophrenia, unspecified (4) Vitamin D deficiency: Status: Acute (5) Smoking addiction: Status: Acute Reason for Visit Reason for Visit: HI/ SEIZURE Hospital Course Hospital Course Tramaine Remy is a 55 year old male with a past medical history of schizophrenia, breakthroughs seizures with underlying epilepsy, nicotine dependence, chronic right mandibular plane who presents to [facility] for breakthrough seizures, recently discharged from [facility] for breakthrough seizures who presents to [facility] for recurrent seizures and exacerbation of his paranoid schizophrenia Patient was admitted to the general medical floors, clinically monitored, no episodes of seizures witnessed, patient had a EEG, which was within normal limits, neurology recommended adding Onfi 20 mg daily, with close follow-up with neurology as outpatient. On his last admission his carbamazepine was increased to 400 mg twice daily. We will discharge him on Onfi 20 mg daily. With close follow-up with Dr. Gilman as outpatient. Again was advised that he cannot drive for the next 3 to 6 months, continues to stay low. For his exacerbation of paranoid schizophrenia, he was monitored on the general medical floors, was alert oriented x3, no suicidal ideation, no homicidal ideation, denies seeing or hearing things that are not there, denies any hallucinations, denies any command hallucinations. He was seen by the psychiatric service, deemed safe to be discharged home, with close follow-up with [facility] as outpatient. Physical Exam Const: COMMON NORMALS: no acute distress and patient oriented x3 HENMT: COMMON NORMALS: normocephalic HEAD & SCALP: normocephalic Neck/C-Spine: COMMON NORMALS: no JVD Resp: COMMON NORMALS: normal respiratory effort, No retractions, No use of accessory muscles and clear to auscultation bilaterally AUSCULTATION: clear to auscultation bilaterally Cardio: COMMON NORMALS: no JVD, regular rate, regular rhythm, S1 normal heart sound present and S2 normal heart sound present RATE: regular rate RHYTHM: regular rhythm HEART SOUNDS: S1 normal heart sound present and S2 normal heart sound present GI: COMMON NORMALS: Normal to inspection, nondistended, normoactive bowel sounds present, Soft to palpation, non-tender, No hepatosplenomegaly present, no masses and no bruits PALPATION: Yes Soft to palpation and Yes No hepatosplenomegaly present Extremity: COMMON NORMALS: capillary refill normal, no clubbing, cyanosis or edema, no calf tenderness and no pedal edema Neuro: COMMON NORMALS: patient oriented x3 Psych: COMMON NORMALS: mental status grossly normal Discharge Data Data Completed and Pending: Completed Studies During Hospitalization Category Date Time Status CT head wo con* 7 0450 Stat Cat Scan 10/21/20 20:38 Completed XR chest 1V nahum ble [id number] Urgent Exams 10/21/20 20:23 Completed Pending at discharge Category Date Time Status EEG electroenceph alogram Stat Exams 10/23/20 08:52 Ordered Complete Blood Co unt w/Auto AM LABS Lab 10/25/20 04:00 Ordered Comprehensive Met abolic Panel AM LA BS Lab 10/25/20 04:00 Ordered Levetiracetam Kep pra Stat Lab 10/21/20 20:50 Received Magnesium AM LABS Lab 10/25/20 04:00 Ordered Phosphorus AM LAB S Lab 10/25/20 04:00 Ordered Labs from last 24 hours 10/24/20 10/24/20 04:37 04:37 WBC 5.9 RBC 3.84 L Hgb 12.1 Hct 36.7 L MCV 95.6 H MCH 31.5 MCHC 33.0 RDW 12.8 Plt Count 334 MPV 10.0 Neut % (Auto) 32.8 Lymph % (Auto) 53.3 [place] % (Auto) 12.0 Eos % (Auto) 1.2 Baso % (Auto) 0.5 Neut # (Auto) 1.94 Lymph # (Auto) 3.2 [place] # (Auto) 0.7 Eos # (Auto) 0.1 Baso # (Auto) 0.0 Nucleated RBC % (a uto) 0 Nucleated RBCs # 0.0 Sodium 133 L Potassium 4.4 Chloride 96 L Carbon Dioxide 28 Anion Gap 13.4 BUN 7 Creatinine 0.5 L GFR Calculation 173.9 H Glucose 82 Calculated Osmolal ity 273 L Calcium 9.6 Phosphorus 3.2 Magnesium 1.9 Total Bilirubin 0.3 AST 23 ALT 37 Alkaline Phosphata se 87 Total Protein 7.4 Albumin 4.3 Globulin 3.1 Vitals: Last Vital Signs Temp 99.3 F 10/24/20 12:00 Pulse 81 10/24/20 12:00 Resp 18 10/24/20 12:00 BP 125/79 10/24/20 12:00 Pulse Ox 97 10/24/20 12:00 Discharge Plan Discharge Patient Disposition: Home Condition: Stable Prescriptions: New Onfi 20 mg tablet 20 mg PO DAILY 30 Days Qty: 30 RF: 0 Advair Diskus 100-50 mcg/dose Blister With Device 1 ea inhalation BID.RESPIRATORY Qty: 60 RF: 0 Continued albuterol sulfate 90 mcg/actuation HFA aerosol inhaler 1 inh INHALATION Q6H PRN (Reason: shortness of breath or wheezing) Qty: 6.7 RF: 2 lorazepam 0.5 mg tablet 0.5 mg PO QID PRN (Reason: Anxiety) Qty: 90 RF: 2 olanzapine 5 mg Tablet 5 mg PO QPM RF: 0 levetiracetam 500 mg tablet 2,000 mg PO BID Qty: 240 RF: 11 divalproex 500 mg Tablet Extended Release 24 Hr 1,000 mg PO Q24H Qty: 60 RF: 0 folic acid 1 mg Tablet 1 mg PO DAILY Qty: 30 RF: 0 thiamine mononitrate (vit B1) [Vitamin B-1 (mononitrate)] 100 mg Tablet 100 mg PO DAILY Qty: 30 RF: 0 multivitamin with folic acid [Thera] 400 mcg Tablet 1 tab PO DAILY Qty: 30 RF: 0 acetaminophen [Tylenol Extra Strength] 500 mg Tablet 1,000 mg PO PRN RF: 0 aspirin 81 mg Tablet,Delayed Release (Dr/Ec) 81 mg PO BID RF: 0 Vitamin D3 1 cap PO BID@06,17 RF: 0 carbamazepine 200 mg Tablet Extended Release 12 Hr 400 mg PO BID 30 Days Qty: 120 RF: 0 amoxicillin-pot clavulanate 875-125 mg Tablet 1 tab PO BID 7 Days Qty: 14 RF: 0 cholecalciferol (vitamin D3) 25 mcg (1,000 unit) Tablet 4,000 unit PO DAILY 30 Days Qty: 30 RF: 0 Discharge Orders: Discharge Order (Routine); Ordered 10/24/20 Ordered By: Jv Cannon Referrals: Kady Gilman MD [Physician] - 2 weeks CATHRYN Mackey FNP [Primary Care Provider] - Discharge Diet: Advance as tolerated Discharge Activity: Resume usual activity Patient Instructions: Seizures Activity Restrictions/Additional Instructions: -Please take medications as prescribed, Onfi as prescribed -Please do not drive for the next 3 to 6 months as per baseline state law due to breakthrough seizures -Follow-up with Dr. Gilman in 2 weeks Discharge Attestations Time Spent in Discharge Care*: greater than 30 min Quality Metrics Clinical Quality Measures During this hospital stay, did patient experience: None Coding Level of Care Code Acute Alteration Tailor for g Fwd Diagnoses Altered mental status R41.82 Seizure disorder G40.909 Schizophrenia F20.9 Schizophrenia type: unspecified Vitamin D deficiency E55.9 Smoking addiction F17.200
--- NOTE | 2020-10-24 14:03 | PC.NURSE ---
notified patient's brother Tony [phone] that patient is being discharged. Called pharmacy to have medications delivered to bed.
--- NOTE | 2020-10-24 15:52 | PC.NURSE ---
discharge education provided. pt verbalizes understanding of discharge instructions, follow up instructions, medications, and not driving per [place] state law.
[2020-10-25 15:28] LABS: Levetiracetam Keppra 10.4 mcg/mL
== END 2020-10-24 15:59 | disposition home or self-care (01) | DRG 101 ==
LOC: ER 10-22 02:28 → MEDSURG 10-22 04:29
PROVIDERS: Family Medicine; Admitting Provider Internal Medicine; Emergency Provider Emergency Medicine; PCP Nurse Practitioner Family; Visit Provider Family Medicine
DX: G40.109 Localization-related (focal) (partial) symptomatic epilepsy and epileptic syndromes with simple partial seizures, not intractable, without status epilepticus (principal); F23 Brief psychotic disorder; E55.9 Vitamin D deficiency, unspecified; F17.210 Nicotine dependence, cigarettes, uncomplicated; Z79.82 Long term (current) use of aspirin; E78.2 Mixed hyperlipidemia; G89.4 Chronic pain syndrome; F41.1 Generalized anxiety disorder
CPT/HCPCS: 12345; 36415; 36600; 70450; 71045; 80051; 80053; 80156; 80164; 80177; 80306; 80307; 81003; 82330; 82550; 82805; 83605; 83735; 84100; 84443; 84484; 85025; 93005; 94640; 94664; 96372; 99284; J1630; J1644; J2060; J7030

== ENCOUNTER 2021-01-17 15:55 | Emergency (ER) | payer MEDICAID, SELFPAY ==
[2021-01-17 15:59] VITALS: BP 131/78; PULSE 90; RESP 27; TEMP 36.8; O2SAT 90; BMI 22.9
--- NOTE | 2021-01-17 15:59 | ECG_ITS ---
[facility] Test Date: 2021-01-17 Pat Name: Tramanie Remy Department: Room: Gender: Male Rn Navigator: : 1965 Requested By: Dae Patel Order Number: [id number] Jose MD: SYD STARK Measurements Intervals [place] Rate: 87 P: 73 [place]: 176 QRS: 81 QRSD: 106 T: 90 QT: 346 QTc: 418 Interpretive Statements SINUS RHYTHM POSSIBLE LEFT ATRIAL ENLARGEMENT [-0.1mV P WAVE IN V1/V2] POSSIBLE RIGHT VENTRICULAR CONDUCTION DELAY [RSR (QR) IN V1/V2] MODERATE ST DEPRESSION [0.05+ mV ST DEPRESSION] Compared to ECG 10/21/2020 20:33:30 ST (T wave) deviation now present Electronically Signed On 01-17-2021 20:18:30 CDT by SYD STARK [email or web address]
--- NOTE | 2021-01-17 16:01 | ED_ITS ---
HPI - General Adult General: Chief complaint: Seizure Stated complaint: SEIZURE Time Seen by Provider: 01/17/21 15:55 Source: patient, family and RN notes reviewed Limitations: no limitations History of Present Illness: HPI narrative: This patient is a 55-year-old male presents to the emergency department for history of seizure-like activity. Unknown unwitnessed seizure today. Family were state that they came to his home nurse found the patient with some scratches on his head and some redness his head as if he had a seizure. Patient has not lost any bowel or bladder. Patient is awake and alert. Patient's transport time to the emergency department was greater than an hour and EMS time to the patient's residence was greater than 30 minutes. Patient has had no further seizure activity. Patient does have a long history of psychological issues and is on multiple medications for the same. Will do medical evaluation treat as needed. Onset (ago): day(s) (5) Pain Consistency: intermittent Associated symptoms: Deny chest pain, dyspnea, headache(s), nausea, rash, palpitations or vomiting Review of Systems General: Reports: 10 or more systems reviewed and unremarkable except in HPI and below Const: Denies: fever(s), chills, body aches or fatigue Eyes: Denies: change in vision or blurry vision ENMT: Denies: throat pain, hoarseness or mouth pain Card: Denies: chest pain or palpitations Resp: Denies: dyspnea GI: Denies: nausea or vomiting : Denies: flank pain, dysuria, urinary frequency, urinary urgency or urinary hesitancy Musc: Denies: neck pain, back pain, extremity pain, extremity swelling, joint pain, joint swelling, joint redness, joint warmth or limited range of motion Skin/Breast: Denies: rash Neuro: Reports: seizure-like activity; Denies: headache(s) Psych: Denies: anxiety or depression PFS ED PFSH: Medical History Chronic pain syndrome Complex partial epilepsy with generalization SYDNEY (generalized anxiety disorder) Mixed hyperlipidemia Schizophrenia Seizure disorder Surgical History History of mandibular surgery Right mandible fracture Status post lung surgery bullectomy Family History Other Heart disease Social History (Updated 01/17/21 @ 16:06 by Dallas Franco RN) Smoking and tobacco status: current every day smoker cigarettes Packs smoked per day: 1 Alcohol intake: never Substance/Drug Use: never Lives independently: Yes Housing: House Physical Exam Const: COMMON NORMALS: no acute distress, average body habitus, patient oriented x3, no limitations, healthy appearing, alert and well nourished HENMT: COMMON NORMALS: normocephalic, atraumatic, hearing grossly normal bilaterally, external ears normal, EAC's normal, TM's normal bilaterally, Normal external nose present, Normal nasal mucous membranes and turbinates present, moist oral mucous membranes, oropharynx normal, dentition normal and gingiva normal HEAD & SCALP: normocephalic and atraumatic NOSE: Normal external nose present and Normal nasal mucous membranes and turbinates present EXTERNAL EAR: Yes external ears normal EXTERNAL AUDITORY CANAL: EAC's normal TYMPANIC MEMBRANE: TM's normal bilaterally Neck/C-Spine: COMMON NORMALS: full ROM, no lymphadenopathy, supple, no meningeal signs, no JVD, Thyroid normal and No carotid bruits THYROID: Thyroid normal Chest: COMMONS NORMALS: normal inspection of the chest, normal palpation of entire chest wall, normal inspection of the breasts and normal palpation of the breasts Breast/axilla inspection: Yes normal inspection of the breasts BREAST/AXILLA PALPATION: Yes normal palpation of the breasts Resp: COMMON NORMALS: normal respiratory effort, No retractions, No use of accessory muscles, clear to auscultation bilaterally and percussion normal AUSCULTATION: clear to auscultation bilaterally PERCUSSION: percussion normal Cardio: COMMON NORMALS: no JVD, regular rate, regular rhythm, S1 normal heart sound present, S2 normal heart sound present, No gallops present (Cardio), No clicks present (Cardio), No murmurs present (Cardio), No rub (Cardio) and Peripheral pulses 2+ throughout RATE: regular rate RHYTHM: regular rhythm HEART SOUNDS: S1 normal heart sound present and S2 normal heart sound present PERIPHERAL PULSES: Peripheral pulses 2+ throughout GI: COMMON NORMALS: Normal to inspection, nondistended, normoactive bowel sounds present, Soft to palpation, non-tender, No hepatosplenomegaly present, no masses and no bruits PALPATION: Yes Soft to palpation and Yes No hepatosplenomegaly present : COMMON NORMALS: Yes no CVA tenderness BLADDER/KIDNEY EXAM: Yes no CVA tenderness Back/Pelvis: COMMON NORMALS: no CVA tenderness, thoracic and lumbar spine normal to inspection, no thoracic nor lumbar tenderness, thoraco-lumbar ROM normal and straight leg raise negative bilaterally Extremity: COMMON NORMALS: normal to inspection, full ROM, capillary refill normal, no joint enlargement, no clubbing, cyanosis or edema, no calf tenderness and no pedal edema Neuro: COMMON NORMALS: patient oriented x3 SENSORIUM/ORIENTATION: Yes alert MENINGEAL SIGNS: Yes no meningeal signs Course Reevaluation(s): Reevaluation #1: Negative evaluation in the emergency department for any acute findings. Patient does have a history of chronic seizure at history and history of psychological issues. Patient is at his mental baseline. Patient has had no further seizure activity patient had no seizure activity with EMS or prior to EMS arrival to the scene. Patient instructed to continue all medications follow-up with primary care physician in 2 to 3 days patient states understanding he will be discharged home Time: 17:27 Vital Signs: Vital signs: Vital Signs Temperature 98.3 F 01/17/21 15:59 Pulse Rate 101 H 01/17/21 16:48 Respiratory Rate 25 H 01/17/21 16:48 Blood Pressure 123/72 01/17/21 16:48 Pulse Oximetry 89 L 01/17/21 16:48 MDM - General Adult MDM Narrative: Medical decision making narrative: Patient concerns for possible seizure-like activity however was not witnessed. Patient does have some older scratches on his forehead but does not appear to be acutely done to day. Patient is awake alert and his mental baseline. Differential Diagnosis: Differential Diagnosis: Seizure activity Lab Data: Labs: Lab Results 01/17/21 01/17/21 01/17/21 Range/Units 16:39 16:39 16:39 WBC 13.4 H (4.0-10.0) 10^3/ uL RBC 3.84 L (4.1-5.3) 10^6/u L Hgb 12.0 (11.7-16.6) g/dL Hct 35.9 L (42.0-52.0) % MCV 93.5 (80-94) fL MCH 31.3 (28.0-34.0) pg MCHC 33.4 (30.0-36.0) g/dL RDW 13.4 (12.1-15.1) % Plt Count 276 (130-400) 10^3/c mm MPV 9.5 (7.4-10.4) fL Neut % (Auto) 78.9 % Lymph % (Auto) 12.2 % [place] % (Auto) 8.5 % Eos % (Auto) 0.0 % Baso % (Auto) 0.2 % Neut # (Auto) 10.54 H (1.8-7.7) 10^3/u L Lymph # (Auto) 1.6 (0.8-4.8) 10^3/u L [place] # (Auto) 1.1 H (0.2-0.9) 10^3/u L Eos # (Auto) 0.0 (0.0-0.8) 10^3/u L Baso # (Auto) 0.0 (0.0-0.1) 10^3/u L Nucleated RBC % (a uto) 0 % Nucleated RBCs # 0.0 /100WBC Sodium 134 L (136-145) mmol/L Potassium 4.4 (3.5-5.1) mmol/L Chloride 97 L (98-107) mmol/L Carbon Dioxide 26 (22-29) mmol/L Anion Gap 15.4 (5-19) BUN 7 (6-20) mg/dL Creatinine 0.6 L (0.7-1.2) mg/dL GFR Calculation 140.9 H (90-130) mL/min Glucose 130 H (65-115) mg/dL Calculated Osmolal ity 278 L (285-295) mOsm/k g Calcium 9.1 (8.5-10.5) mg/dL Total Bilirubin 0.5 (0.15-1.2) mg/dL AST 26 (0-40) U/L ALT 26 (0-41) U/L Alkaline Phosphata se 87 (40-130) IU/L Total Protein 7.2 (6.6-8.7) g/dL Albumin 4.3 (3.5-5.2) g/dL Globulin 2.9 (1.3-4.6) g/dL Urine Color (Yellow) Urine Appearance (CLEAR) Urine pH (5-7) Ur Specific Gravit y (1.005-1.030) Urine Protein (Negative) Urine Glucose (UA) (Normal) Urine Ketones (Negative) Urine Blood (Negative) Urine Nitrate (Negative) Urine Bilirubin (Negative) Urine Urobilinogen (Negative) mg/dL Ur Leukocyte Tisha ase (Negative) Urine Opiates Scre en Negative (Negative) ng/mL Acetaminophen < 5.0 L (10-30) ug/mL Ur Barbiturates Sc reen Negative (Negative) ng/mL Ur Phencyclidine S crn Negative (Negative) ng/mL Ur Amphetamines Sc reen Negative (Negative) ng/mL U Benzodiazepines Scrn Positive H (Negative) ng/mL Urine Cocaine Scre en Negative (Negative) ng/mL U Marijuana (THC) Screen Negative (Negative) ng/mL Ethyl Alcohol < 10 (0-10) mg/dL 01/17/21 Range/Units 16:39 WBC (4.0-10.0) 10^3/ uL RBC (4.1-5.3) 10^6/u L Hgb (11.7-16.6) g/dL Hct (42.0-52.0) % MCV (80-94) fL MCH (28.0-34.0) pg MCHC (30.0-36.0) g/dL RDW (12.1-15.1) % Plt Count (130-400) 10^3/c mm MPV (7.4-10.4) fL Neut % (Auto) % Lymph % (Auto) % [place] % (Auto) % Eos % (Auto) % Baso % (Auto) % Neut # (Auto) (1.8-7.7) 10^3/u L Lymph # (Auto) (0.8-4.8) 10^3/u L [place] # (Auto) (0.2-0.9) 10^3/u L Eos # (Auto) (0.0-0.8) 10^3/u L Baso # (Auto) (0.0-0.1) 10^3/u L Nucleated RBC % (a uto) % Nucleated RBCs # /100WBC Sodium (136-145) mmol/L Potassium (3.5-5.1) mmol/L Chloride (98-107) mmol/L Carbon Dioxide (22-29) mmol/L Anion Gap (5-19) BUN (6-20) mg/dL Creatinine (0.7-1.2) mg/dL GFR Calculation (90-130) mL/min Glucose (65-115) mg/dL Calculated Osmolal ity (285-295) mOsm/k g Calcium (8.5-10.5) mg/dL Total Bilirubin (0.15-1.2) mg/dL AST (0-40) U/L ALT (0-41) U/L Alkaline Phosphata se (40-130) IU/L Total Protein (6.6-8.7) g/dL Albumin (3.5-5.2) g/dL Globulin (1.3-4.6) g/dL Urine Color Straw (Yellow) Urine Appearance Clear (CLEAR) Urine pH 5 (5-7) Ur Specific Gravit y 1.005 (1.005-1.030) Urine Protein Neg (Negative) Urine Glucose (UA) Norm (Normal) Urine Ketones Negative (Negative) Urine Blood Neg (Negative) Urine Nitrate Negative (Negative) Urine Bilirubin Neg (Negative) Urine Urobilinogen Norm (Negative) mg/dL Ur Leukocyte Tisha ase Negative (Negative) Urine Opiates Scre en (Negative) ng/mL Acetaminophen (10-30) ug/mL Ur Barbiturates Sc reen (Negative) ng/mL Ur Phencyclidine S crn (Negative) ng/mL Ur Amphetamines Sc reen (Negative) ng/mL U Benzodiazepines Scrn (Negative) ng/mL Urine Cocaine Scre en (Negative) ng/mL U Marijuana (THC) Screen (Negative) ng/mL Ethyl Alcohol (0-10) mg/dL EKG Data^: EKG 1: Attestation: I personally reviewed and interpreted this EKG as follows: EKG interpretation date: 01/17/21 EKG interpretation time: 16:36 Prior EKG tracings: available for review Ischemic changes: non-specific ST-T wave changes Interpretation: Sinus rhythm heart rate 87. Left atrial enlargement. Right ventricular conduction delay nonspecific ST changes. Discharge Plan Discharge Patient Disposition: Home Clinical Impression: Seizure disorder Condition: Stable Prescriptions: No Action divalproex 500 mg tablet extended release 24 hr 1,000 mg PO Q24H Qty: 60 RF: 0 levetiracetam 500 mg tablet 2,000 mg PO BID Qty: 240 RF: 11 albuterol sulfate 90 mcg/actuation HFA aerosol inhaler 1 inh INHALATION Q6H PRN (Reason: shortness of breath or wheezing) Qty: 6.7 RF: 2 Onfi 20 mg tablet 20 mg PO DAILY 30 Days Qty: 30 RF: 5 carbamazepine 200 mg tablet extended release 12 hr 400 mg PO BID 30 Days Qty: 120 RF: 5 thiamine mononitrate (vit B1) [Vitamin B-1 (mononitrate)] 100 mg Tablet 100 mg PO DAILY Qty: 30 RF: 0 acetaminophen [Tylenol Extra Strength] 500 mg Tablet 1,000 mg PO PRN RF: 0 aspirin 81 mg Tablet,Delayed Release (Dr/Ec) 81 mg PO BID RF: 0 Vitamin D3 1 cap PO BID RF: 0 fluticasone propion-salmeterol [Advair Diskus] 100-50 mcg/dose Blister With Device 1 ea inhalation BID.RESPIRATORY Qty: 60 RF: 0 Discharge Orders: Discharge ED (Routine); Ordered 01/17/21 Ordered By: Dae Patel Referrals: CATHRYN Mackey, CLASSIFIER [Primary Care Provider] - Discharge Diet: Advance as tolerated Discharge Activity: Resume usual activity Patient Instructions: Opioid Safety Activity Restrictions/Additional Instructions: Continue all home medications. Follow-up with your primary care physician in 2 to 3 days. Coding Level of Care Code ED Packing Machine Feeder for Tammy Fwd Exam Comprehensive
[2021-01-17 16:46] LABS: Basophils % 0.2 %; Hematocrit 35.9 % (42.0-52.0); Lymphocytes # 1.6 10^3/uL (0.8-4.8); Lymphocytes % 12.2 %; Mean Corpuscular HGB Conc 33.4 g/dL (30.0-36.0); Mean Corpuscular Hemoglobin 31.3 pg (28.0-34.0); Mean Corpuscular Volume 93.5 fL (80-94); Mean Platelet Volume 9.5 fL (7.4-10.4); Monocytes # 1.1 10^3/uL (0.2-0.9); Monocytes % 8.5 %; Neutrophils # 10.54 10^3/uL (1.8-7.7); Neutrophils % 78.9 %; Nucleated Red Blood Cells % 0 %; Platelet Count 276 10^3/cmm (130-400); Red Blood Count 3.84 10^6/uL (4.1-5.3); Red Cell Distribution Width 13.4 % (12.1-15.1); White Blood Count 13.4 10^3/uL (4.0-10.0)
[2021-01-17 16:48] VITALS: BP 123/72; PULSE 101; RESP 25; O2SAT 89
--- NOTE | 2021-01-17 16:51 | PC.PHAR ---
pt states he takes care of his own medications-pt answered some of the medications he takes and was unsure of some-notes are on each pharmacy comments on entered medications
[2021-01-17 16:57] LABS: Add Urine Microscopic? NO; Charge for UA Resulting for Rev
[2021-01-17 17:01] LABS: Bilirubin Urine Neg (Negative); Blood Urine Neg (Negative); Glucose Urine UA Norm (Normal); Ketones Urine Negative (Negative); Leukocyte Esterase Urine Negative (Negative); Nitrate Urine Negative (Negative); Protein Urine Neg (Negative); Specific Gravity, Urine 1.005 (1.005-1.030); Urine Appearance Clear (CLEAR); Urine Color Straw (Yellow); Urobilinogen Urine Norm (Negative); pH Urine 5 (5-7)
[2021-01-17 17:10] LABS: Amphetamines Screen Urine Negative (Negative); Barbiturates Screen Urine Negative (Negative); Benzodiazepines Screen Urine Positive (Negative); Cocaine Screen Urine Negative (Negative); Opiate Screen Urine Negative (Negative); PCP Screen Urine Negative (Negative); THC Screen Urine Negative (Negative)
[2021-01-17 17:14] LABS: Alanine Aminotransferase 26 U/L (0-41); Albumin Level 4.3 g/dL (3.5-5.2); Alkaline Phosphatase 87 IU/L (40-130); Anion Gap 15.4 (5-19); Aspartate Amino Transferase 26 U/L (0-40); Blood Urea Nitrogen 7 mg/dL (6-20); Calcium 9.1 mg/dL (8.5-10.5); Carbon Dioxide 26 mmol/L (22-29); Chloride 97 mmol/L (98-107); Globulin 2.9 g/dL (1.3-4.6); Glomerular Filtration Rate 140.9 mL/min (90-130); Glucose 130 mg/dL (65-115); Osmolality Calculated 278 mOsm/kg (285-295); Potassium 4.4 mmol/L (3.5-5.1); Sodium 134 mmol/L (136-145); Total Bilirubin 0.5 mg/dL (0.15-1.2); Total Protein 7.2 g/dL (6.6-8.7)
[2021-01-17 17:17] LABS: Acetaminophen < 5.0 ug/mL (10-30); Alcohol Level < 10 mg/dL (0-10)
[2021-01-17 17:25] VITALS: BP 143/103; PULSE 98; RESP 18; O2SAT 99
[2021-01-17 17:49] VITALS: BP 138/72; PULSE 85; RESP 19; O2SAT 94
== END 2021-01-17 17:51 | disposition home or self-care (01) ==
PROVIDERS: Emergency Provider Emergency Medicine; PCP Nurse Practitioner Family
DX: G40.909 Epilepsy, unspecified, not intractable, without status epilepticus (principal); Z79.82 Long term (current) use of aspirin; E78.2 Mixed hyperlipidemia; F17.210 Nicotine dependence, cigarettes, uncomplicated
CPT/HCPCS: 80053; 80306; 80307; 81003; 85025; 93005; 99283

== ENCOUNTER → 2021-04-17 13:23 | Outpatient (BNVA) | payer MEDICAID, SELFPAY | PROVIDERS: PCP Nurse Practitioner Family; Visit Provider Specialist | DX: G40.209 Localization-related (focal) (partial) symptomatic epilepsy and epileptic syndromes with complex partial seizures, not intractable, without status epilepticus (principal); G40.409 Other generalized epilepsy and epileptic syndromes, not intractable, without status epilepticus; F20.9 Schizophrenia, unspecified; Z71.89 Other specified counseling | CPT/HCPCS: 99215 ==